=== PATIENT | male | born 1945 | race Caucasian/White ===

== ENCOUNTER 2016-08-15 15:29 | Observation (INO) | payer BC, OTHER ==
[2016-08-15] MEDS ORDERED: NORMAL SALINE 10 ML SYRINGE FLUSH IVP PRN ×2 (15:47→17:01)
[2016-08-15] MEDS ORDERED: ASPIRIN 81 MG (BABY) CHEWABLE TABLET PO ONE (15:47)
[2016-08-15] MEDS ORDERED: Sodium Chloride 0.9% 1,000 ML PRIMARY IV ONE (15:47)
--- NOTE | 2016-08-15 15:50 | EKG ---
[address] [address] Measurements Intervals [place] Rate: 57 P: 66 NE: 170 QRS: 33 QRSD: 88 T: 64 QT: 427 QTc: 422 Interpretive Statements SINUS BRADYCARDIA Compared to ECG 02/23/2016 16:58:28 Sinus rhythm no longer present Electronically Signed On 08-16-16 09:27:28 MST by Donell Cardenas [email or web address]
[2016-08-15 15:54] LABS: BASOPHILS # (AUTO) 0.01 10*3/UL; BASOPHILS % (AUTO) 0.1 % (0-1); HEMATOCRIT 47.8 % (42.0-52.0); IMM GRAN % (AUTO) 0.3 % (0-5); IMM GRAN# (AUTO) 0.03 10*3/UL; LYMPHOCYTES # (AUTO) 2.54 10*3/uL; LYMPHOCYTES % (AUTO) 23.5 % (10-50); MEAN CORPUSCULAR HGB CONC 33.5 g/dL (33-37); MEAN PLATELET VOLUME 10.9 FL (7.4-12.2); MONOCYTES # (AUTO) 1.01 10*3/UL (0.3-0.8); MONOCYTES % (AUTO) 9.4 % (5-15); NEUTROPHILS # (AUTO) 6.89 10*3/UL; NEUTROPHILS % (AUTO) 63.7 % (50-80); RDW COEFFICIENT OF VARIATION 12.9 % (11.5-14.5); RED BLOOD COUNT 5.34 10^6/uL (4.70-6.10)
[2016-08-15 15:57] LABS: PLATELET MORPHOLOGY COMMENT NORMAL MORPHOLOGY (NORM)
[2016-08-15 16:09] LABS: BILIRUBIN,TOTAL 0.4 mg/dL (0.3-1.2); BUN/CREATININE RATIO 16.92 (6-20); CALCIUM 9.7 mg/dL (8.7-10.7); CREATININE 1.3 mg/dL (0.70-1.50); POTASSIUM 3.9 meq/L (3.8-5.2); TOTAL PROTEIN 7.4 g/dL (6.1-8.0)
--- NOTE | 2016-08-15 16:15 | DI ---
AP CHEST X-RAY, 08/15/2016 3:47 PM : Clinical History: Chest pain. Previous Exam: 02/20/2016. There is no acute soft tissue or bony abnormality. Heart size is normal. Lungs are clear. Mediastinal structures are normal. There are no pulmonary nodules. The film was obtained in a lordotic projectio n. Reading: Normal chest x-ray. There has been no change.
[2016-08-15 16:21] LABS: CREATINE KINASE MB 0.84 NG/DL (0.00-5.00)
[2016-08-15 16:27] LABS: TROPONIN I < 0.012 ng/mL (< 0.040)
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
[2016-08-15] MEDS ORDERED: ALBUTEROL SULFATE INH SCH (17:01)
[2016-08-15] MEDS ORDERED: LIDOCAINE W/ SODIUM BICARB 0.5 ML SYR SUBD PRN (17:01)
[2016-08-15] MEDS ORDERED: CALCIUM CARBONATE 500 MG (TUMS) CHEWABLE TABLET PO PRN (17:01)
[2016-08-15] MEDS ORDERED: IPRATROPIUM INH SCH (17:01)
[2016-08-15] MEDS ORDERED: ONDANSETRON 4 MG/2 ML VIAL IVP PRN (17:01)
[2016-08-15] MEDS ORDERED: MAG HYDROX/AL HYDROX/SIMETH 30 ML SUSP PO PRN (17:01)
[2016-08-15] MEDS ORDERED: LORazepam 2 MG/1 ML VIAL IVP PRN (17:41)
[2016-08-15] MEDS: HEPARIN 5000 UNIT/1 ML SUBCUT SCH (17:51)
[2016-08-15] MEDS: Sodium Chloride 0.9% 1,000 ML PRIMARY IV SCH (17:57)
--- NOTE | 2016-08-15 19:59 | DI ---
CT ANGIOGRAM OF THE CHEST, 08/15/2016 6:21 PM : Clinical History: Cough. Chest pain with inspiration. Previous Exam: 07/27/2014; 06/14/2015; 07/01/2015; and 02/20/2016. Scans are performed from the base of the neck to the lower lung bases following IV administration of 95 mL of Isovue 300. Proprietary automated bolus tracking software was used to verify the timing of t he injection. The base of the neck and thoracic inlet are normal. There are no abnormal axillary, supraclavicular, mediastinal, or hilar nodes. The heart is normal. The pulmonary arteries are normal. There is no pulm onary arterial hypertension. There is no evidence of pulmonary embolism or pulmonary infarction. Ther e is no acute infiltrate or effusion. Bullae are present in both upper lobes indicating the patient d oes have bullous emphysema. There are multiple noncalcified nodules in the right upper lobe measuring up to 3-4 mm in diameter and one noncalcified nodule located in the left lingular segment measuring about 3 mm in diameter. All of these were present on the CT scans of the chest from 07/27/2014, and th e stability of these lesions over the 24 month duration indicates they are benign granulomas. Both ad renal glands and the spleen as well as the visualized portions of the liver and pancreas are normal. READIN. Normal CTA of the chest. There are no pulmonary emboli or pulmonary infarcts. 2. Bullous emphysema. 3. There are noncalcified nodules in the right upper lobe and the lingular segment in these have rem ained stable over a duration of 2 years indicating they represent benign granulomas and no further wo rkup of these nodules is required.
[2016-08-16] MEDS: HEPARIN 5000 UNIT/1 ML SUBCUT SCH ×3 (01:16→17:05)
[2016-08-16] MEDS: Sodium Chloride 0.9% 1,000 ML PRIMARY IV SCH ×3 (01:17→20:16)
[2016-08-16 06:17] LABS: BASOPHILS # (AUTO) 0.02 10*3/UL; BASOPHILS % (AUTO) 0.2 % (0-1); EOSINOPHILS % (AUTO) 3.6 % (0-8); HEMATOCRIT 44.5 % (42.0-52.0); HEMOGLOBIN 14.7 g/dL (14.0-18.0); IMM GRAN % (AUTO) 0.1 % (0-5); IMM GRAN# (AUTO) 0.01 10*3/UL; LYMPHOCYTES # (AUTO) 2.35 10*3/uL; LYMPHOCYTES % (AUTO) 26.1 % (10-50); MEAN CORPUSCULAR HEMOGLOBIN 29.9 PG (27-31); MEAN PLATELET VOLUME 10.8 FL (7.4-12.2); MONOCYTES # (AUTO) 0.83 10*3/UL (0.3-0.8); MONOCYTES % (AUTO) 9.2 % (5-15); NEUTROPHILS # (AUTO) 5.47 10*3/UL; NEUTROPHILS % (AUTO) 60.8 % (50-80); PLATELET MORPHOLOGY COMMENT NORMAL MORPHOLOGY (NORM); RDW COEFFICIENT OF VARIATION 12.8 % (11.5-14.5); RED BLOOD COUNT 4.92 10^6/uL (4.70-6.10)
[2016-08-16 06:31] LABS: ASPARTATE AMINO TRANSFERASE 27 IU/L (21-57); BILIRUBIN,TOTAL 0.4 mg/dL (0.3-1.2); BLOOD UREA NITROGEN 19 mg/dL (7-22); BUN/CREATININE RATIO 15.83 (6-20); CHLORIDE 110 meq/L (98-112); CREATININE 1.2 mg/dL (0.70-1.50); EST GLOMERULAR FILTRATION > 60 (>60 ml/min/1.73m(2)); GLUCOSE 87 mg/dL (78-110); MAGNESIUM 1.9 mg/dL (1.6-2.4); POTASSIUM 4.5 meq/L (3.8-5.2); SODIUM 139 meq/L (135-145); TOTAL PROTEIN 6.4 g/dL (6.1-8.0)
[2016-08-16] MEDS: CITALOPRAM 20 MG TABLET PO SCH (08:41)
[2016-08-16] MEDS: LOSARTAN 50 MG TABLET PO SCH (08:41)
--- NOTE | 2016-08-16 10:37 | PDOC(PROG) ---
Interval History: Doing great no complaints no nausea no vomiting no chest pain Objective : Data - Labs CBC and BMP: 08/16/16 06:07 08/16/16 06:07 Labs - Last 24 Hours: Laboratory Results 08/15/16 08/15/16 08/15/16 Range/Units 17:01 17:30 23:06 WBC (4.8-10.8) 10^3/uL RBC (4.70-6.10) 10^6/uL Hgb (14.0-18.0) g/dL Hct (42.0-52.0) % MCV (80-90) FL MCH (27-31) PG MCHC (33-37) g/dL RDW Std Deviation (39-50) fL RDW Coeff of Nelda (11.5-14.5) % Plt Count (140-350) 10*3/uL MPV (7.4-12.2) FL Immature Gran % (Auto) (0-5) % Neut % (Auto) (50-80) % Lymph % (Auto) (10-50) % [place] % (Auto) (5-15) % Eos % (Auto) (0-8) % Baso % (Auto) (0-1) % Immature Gran # (Auto) 10*3/UL Neut # (Auto) 10*3/UL Lymph # (Auto) 10*3/uL [place] # (Auto) (0.3-0.8) 10*3/UL Eos # (Auto) 10*3/UL Baso # (Auto) 10*3/UL WBC Morphology Comment (NORM) Plt Morphology Comment (NORM) RBC Morph Comment (NORM) D-Dimer (0.00-0.59) mg/L Sodium (135-145) meq/L Potassium (3.8-5.2) meq/L Chloride (98-112) meq/L Carbon Dioxide (23-33) meq/L Anion Gap (5-20) BUN (7-22) mg/dL Creatinine (0.70-1.50) mg/dL Estimated GFR (>60 ml/min/1.73m(2)) BUN/Creatinine Ratio (6-20) Glucose (78-110) mg/dL Calculated Osmolality (267-292) mOsm/kg Calcium (8.7-10.7) mg/dL Magnesium (1.6-2.4) mg/dL Total Bilirubin (0.3-1.2) mg/dL AST (21-57) IU/L ALT (21-72) IU/L Alkaline Phosphatase (38-126) IU/L Troponin I < 0.012 < 0.012 (< 0.040) ng/mL NT-Pro-B Natriuret Pep 118 (0-125) PG/ML Total Protein (6.1-8.0) g/dL Albumin (3.5-4.8) g/dL Globulin (2.50-4.10) g/dL Albumin/Globulin Ratio (1.3-2.0) mg/g 08/16/16 Range/Units 06:07 WBC 9.00 (4.8-10.8) 10^3/uL RBC 4.92 (4.70-6.10) 10^6/uL Hgb 14.7 (14.0-18.0) g/dL Hct 44.5 (42.0-52.0) % MCV 90.4 H (80-90) FL MCH 29.9 (27-31) PG MCHC 33.0 (33-37) g/dL RDW Std Deviation 41.6 (39-50) fL RDW Coeff of Nelda 12.8 (11.5-14.5) % Plt Count 201 (140-350) 10*3/uL MPV 10.8 (7.4-12.2) FL Immature Gran % (Auto) 0.1 (0-5) % Neut % (Auto) 60.8 (50-80) % Lymph % (Auto) 26.1 (10-50) % [place] % (Auto) 9.2 (5-15) % Eos % (Auto) 3.6 (0-8) % Baso % (Auto) 0.2 (0-1) % Immature Gran # (Auto) 0.01 10*3/UL Neut # (Auto) 5.47 10*3/UL Lymph # (Auto) 2.35 10*3/uL [place] # (Auto) 0.83 H (0.3-0.8) 10*3/UL Eos # (Auto) 0.32 10*3/UL Baso # (Auto) 0.02 10*3/UL WBC Morphology Comment Normal morphology (NORM) Plt Morphology Comment Normal morphology (NORM) RBC Morph Comment Normal morphology (NORM) D-Dimer 0.33 (0.00-0.59) mg/L Sodium 139 (135-145) meq/L Potassium 4.5 (3.8-5.2) meq/L Chloride 110 (98-112) meq/L Carbon Dioxide 23 (23-33) meq/L Anion Gap 6 (5-20) BUN 19 (7-22) mg/dL Creatinine 1.2 (0.70-1.50) mg/dL Estimated GFR > 60 (>60 ml/min/1.73m(2)) BUN/Creatinine Ratio 15.83 (6-20) Glucose 87 (78-110) mg/dL Calculated Osmolality 288.0 (267-292) mOsm/kg Calcium 9.0 (8.7-10.7) mg/dL Magnesium 1.9 (1.6-2.4) mg/dL Total Bilirubin 0.4 (0.3-1.2) mg/dL AST 27 (21-57) IU/L ALT 33 (21-72) IU/L Alkaline Phosphatase 63 (38-126) IU/L Troponin I (< 0.040) ng/mL NT-Pro-B Natriuret Pep (0-125) PG/ML Total Protein 6.4 (6.1-8.0) g/dL Albumin 3.4 L (3.5-4.8) g/dL Globulin 3.0 (2.50-4.10) g/dL Albumin/Globulin Ratio 1.10 L (1.3-2.0) mg/g Objective : Exam - General General Appearance: Mild Distress - Head Head Exam: Normal Inspection - Respiratory Respiratory Exam: Clear to Auscultation - Bilaterally, Breathing Non Labored, Normal To Percussion - Cardiovascular Cardiovascular Exam: RRR, No Murmur, No Clicks, No Gallops - GI/Abdominal GI/Abdominal Exam: Normal Bowel Sounds, Non Tender, Non Distended, Soft - Extremities Extremities Exam: No Clubbing Present, No Edema Present, No Cyanosis Present - Neurological Neurological Exam: Alert, Oriented x 3, CN II-XII Intact, No Facial Droop Assessment and Plan - Patient Problems (1) Chest wall pain Current Visit: No Status: Acute Comment: Negative troponins we'll do stress test today T chest no PE no pneumonia (2) Depression Current Visit: No Status: Acute Comment: Stable (3) Hypertension Current Visit: No Status: Chronic Comment: Stable (4) Cough Current Visit: Yes Status: Acute Comment: CT revealed no pneumonia no PE
[2016-08-17] MEDS: HEPARIN 5000 UNIT/1 ML SUBCUT SCH ×2 (00:34→08:48)
[2016-08-17] MEDS: Sodium Chloride 0.9% 1,000 ML PRIMARY IV SCH ×2 (04:16→08:50)
[2016-08-17] MEDS: LOSARTAN 50 MG TABLET PO SCH (08:48)
[2016-08-17] MEDS: CITALOPRAM 20 MG TABLET PO SCH (08:48)
[2016-08-17] MEDS ORDERED: methylPREDNISolone 125 MG/2 ML VIAL IVP ONE (10:57)
--- NOTE | 2016-08-17 10:57 | DCSUMMARY ---
Hospitalization Summary Hospital Course: Final Discharge Diagnosis: Current Visit Problems Problem Status Priority Diagnosed Code Chest pain Acute R07.9 Cough Acute R05 Diagnostic Data, Laboratory Data, and Procedures of Signifigance: Laboratory Results 08/15/16 08/15/16 08/15/16 Range/Units 15:38 17:01 17:30 WBC 10.80 (4.8-10.8) 10^3/uL RBC 5.34 (4.70-6.10) 10^6/uL Hgb 16.0 (14.0-18.0) g/dL Hct 47.8 (42.0-52.0) % MCV 89.5 (80-90) FL MCH 30.0 (27-31) PG MCHC 33.5 (33-37) g/dL RDW Std Deviation 41.9 (39-50) fL RDW Coeff of Nelda 12.9 (11.5-14.5) % Plt Count 247 (140-350) 10*3/uL MPV 10.9 (7.4-12.2) FL Immature Gran % (Auto) 0.3 (0-5) % Neut % (Auto) 63.7 (50-80) % Lymph % (Auto) 23.5 (10-50) % Cedar % (Auto) 9.4 (5-15) % Eos % (Auto) 3.0 (0-8) % Baso % (Auto) 0.1 (0-1) % Immature Gran # (Auto) 0.03 10*3/UL Neut # (Auto) 6.89 10*3/UL Lymph # (Auto) 2.54 10*3/uL Cedar # (Auto) 1.01 H (0.3-0.8) 10*3/UL Eos # (Auto) 0.32 10*3/UL Baso # (Auto) 0.01 10*3/UL WBC Morphology Comment Normal morphology (NORM) Plt Morphology Comment Normal morphology (NORM) RBC Morph Comment Normal morphology (NORM) D-Dimer 0.40 (0.00-0.59) mg/L Sodium 142 (135-145) meq/L Potassium 3.9 (3.8-5.2) meq/L Chloride 107 (98-112) meq/L Carbon Dioxide 23 (23-33) meq/L Anion Gap 12 (5-20) BUN 22 (7-22) mg/dL Creatinine 1.3 (0.70-1.50) mg/dL Estimated GFR 55 (>60 ml/min/1.73m(2)) BUN/Creatinine Ratio 16.92 (6-20) Glucose 76 L (78-110) mg/dL Calculated Osmolality 295.0 H (267-292) mOsm/kg Calcium 9.7 (8.7-10.7) mg/dL Magnesium (1.6-2.4) mg/dL Total Bilirubin 0.4 (0.3-1.2) mg/dL AST 34 (21-57) IU/L ALT 34 (21-72) IU/L Alkaline Phosphatase 94 (38-126) IU/L CK-MB (CK-2) 0.84 (0.00-5.00) NG/DL Troponin I < 0.012 < 0.012 (< 0.040) ng/mL NT-Pro-B Natriuret Pep 118 (0-125) PG/ML Total Protein 7.4 (6.1-8.0) g/dL Albumin 4.0 (3.5-4.8) g/dL Globulin 3.4 (2.50-4.10) g/dL Albumin/Globulin Ratio 1.10 L (1.3-2.0) mg/g 08/15/16 08/16/16 Range/Units 23:06 06:07 WBC 9.00 (4.8-10.8) 10^3/uL RBC 4.92 (4.70-6.10) 10^6/uL Hgb 14.7 (14.0-18.0) g/dL Hct 44.5 (42.0-52.0) % MCV 90.4 H (80-90) FL MCH 29.9 (27-31) PG MCHC 33.0 (33-37) g/dL RDW Std Deviation 41.6 (39-50) fL RDW Coeff of Nelda 12.8 (11.5-14.5) % Plt Count 201 (140-350) 10*3/uL MPV 10.8 (7.4-12.2) FL Immature Gran % (Auto) 0.1 (0-5) % Neut % (Auto) 60.8 (50-80) % Lymph % (Auto) 26.1 (10-50) % Cedar % (Auto) 9.2 (5-15) % Eos % (Auto) 3.6 (0-8) % Baso % (Auto) 0.2 (0-1) % Immature Gran # (Auto) 0.01 10*3/UL Neut # (Auto) 5.47 10*3/UL Lymph # (Auto) 2.35 10*3/uL Cedar # (Auto) 0.83 H (0.3-0.8) 10*3/UL Eos # (Auto) 0.32 10*3/UL Baso # (Auto) 0.02 10*3/UL WBC Morphology Comment Normal morphology (NORM) Plt Morphology Comment Normal morphology (NORM) RBC Morph Comment Normal morphology (NORM) D-Dimer 0.33 (0.00-0.59) mg/L Sodium 139 (135-145) meq/L Potassium 4.5 (3.8-5.2) meq/L Chloride 110 (98-112) meq/L Carbon Dioxide 23 (23-33) meq/L Anion Gap 6 (5-20) BUN 19 (7-22) mg/dL Creatinine 1.2 (0.70-1.50) mg/dL Estimated GFR > 60 (>60 ml/min/1.73m(2)) BUN/Creatinine Ratio 15.83 (6-20) Glucose 87 (78-110) mg/dL Calculated Osmolality 288.0 (267-292) mOsm/kg Calcium 9.0 (8.7-10.7) mg/dL Magnesium 1.9 (1.6-2.4) mg/dL Total Bilirubin 0.4 (0.3-1.2) mg/dL AST 27 (21-57) IU/L ALT 33 (21-72) IU/L Alkaline Phosphatase 63 (38-126) IU/L CK-MB (CK-2) (0.00-5.00) NG/DL Troponin I < 0.012 (< 0.040) ng/mL NT-Pro-B Natriuret Pep (0-125) PG/ML Total Protein 6.4 (6.1-8.0) g/dL Albumin 3.4 L (3.5-4.8) g/dL Globulin 3.0 (2.50-4.10) g/dL Albumin/Globulin Ratio 1.10 L (1.3-2.0) mg/g CT scan of his chest revealed no PE no pneumonia History and Physical pertinent to Admission: Course of Hospitalization: Is a very nice gentleman with past medical history significant for hypertension and depression comes in with intermittent chest pain after thorough examination this pain was more reproducible when I pushed on his up for left chest and shoulder area. We are awaiting results of stress test which I presume will be negative if troponins were negative if this is the case patient will be discharged home in stable and improved condition before he is discharged I will get an x-ray of his left shoulder since I believe this is where the pain is.elvis scan negative for ischemia On the date of discharge, the patient was examined: Gen.: No acute distress, alert, nontoxic Heart: Regular rate and rhythm, no murmurs, clicks, gallops, or rubs Lungs: Clear to auscultation bilaterally, breathing is nonlabored Abdomen/GI: Normal tones on auscultation, soft, nontender, nondistended Musculoskeletal/extremities: No clubbing, cyanosis, or edema Vitals reviewed and are listed below Assessment and Plan: 1. As per discharge assessments above 2. Disposition: Home 3. Condition on discharge, stable and improved. 4. Diet: regular diet 5. Activities: resume normal activities 6. Follow-Up: 1. PCP 2. 7. Medications at the Time of Discharge: Home Medications Medication Instructions Recorded Confirmed Type Citalopram Hydrobromide [Celexa] 1 tab ORAL QAM #90 tab 05/10/16 08/15/16 Clinic Losartan Potassium 1 tab PO DAILY #90 tab 05/10/16 08/15/16 Clinic 8. Time, care, counseling and coordination of care for this discharge is greater than 30 minutes. Exam - Vitals Vital Signs: Vital Signs Temperature 97.5 F Temperature Source Temporal Artery Scan Pulse Rate [Pulse Oximeter] 53 Pulse Rate [Telemetry] 58 Pulse Rate 52 Respiratory Rate 20 Blood Pressure [Right Arm] 133/79 Blood Pressure 139/90 Pulse Ox 93 Oxygen Flow Rate 2 Oxygen Delivery Method Nasal Cannula Height 6 ft 2 in Weight 135.896 kg Patient Problems - Patient Problem List (1) Chest wall pain Current Visit: No Status: Acute (2) Depression Current Visit: No Status: Acute (3) Hypertension Current Visit: No Status: Chronic (4) Cough Current Visit: Yes Status: Acute
--- NOTE | 2016-08-17 13:10 | DI ---
LEFT SHOULDER, 08/17/2016 11:35 AM: Clinical History: Left shoulder pain. Previous Exam: 05/19/2014. 3 views are submitted. The patient is status post total left reverse shoulder replacement. The prosth etic device articulates normally. Since the last exam, a large bony spur has developed along the infe rior margin of the scapula. There is no evidence of loosening of the prosthetic device. The visualize d portions of the left lung and apex are normal. Readin. Status post left total reverse shoulder replacement. The prosthetic device articulates normally a nd there is no loosening of the prosthesis noted. 2. A bony spur has developed along the inferior margin of the scapula.
[2016-08-17 16:52] VITALS: RESP 22; TEMP 97.7
--- NOTE | 2016-08-17 17:11 | STRESSTEST ---
[facility] Interpretive Statements this is a very nice [place] who comes in with atypical chest pain and neg troponins ., no acute changes will await imaging Electronically Signed On 08-20-16 08:50:37 MDT by Giovanni Bush MD [id number]
--- NOTE | 2016-08-17 22:54 | DI ---
2 DAY LEXISCAN STRESS & REST MYOCARDIAL PERFUSION SCANS, 08/16/2016-08/17/2016.: Clinical History: Chest pain. Previous Exam: 07/23/2013. Monitoring Physician: Dr. Baldev Castro. Dose: Stress dose: 35 mCi on 08/17/2016. Rest dose: 33 mCi on 08/16/2016. Quantitative Analysis: [employer] program with low dose limited CT chest scan attenuation correctio n. Exam Quality: Excellent. Rejected Beats: Stress = 0%; Rest = 1%. HR: Stress = 67-77 b/m; Rest = 52-5 6 b/m. Left ventricular chamber sizes are normal at stress and rest. Transient ischemic dilatation ratio is 0.85 (normal Stan TID <= 1.22; normal Lexiscan TID <= 1.33). Stress LVEF: 86%; rest LVEF: 77%. Both the non-attenuated and the attenuated corrected scans show no perfusion abnormality either at stress or rest. Wall motion and myocardial thickening are also normal at stress and rest. Limited CT scans o f the heart show no coronary artery calcifications. There are no lung nodules or enlarged nodes. Readin. Normal stress and rest left ventricular chamber size. Transient ischemic dilatation ratio is norm al at 0.85. 2. Normal stress and rest LVEF values of 86% and 77%, respectively. 3. Normal stress and rest myocardial perfusion, wall motion, and thickening. 4. The low dose stress and rest CT scans of the chest through the region of the heart show no coron bernardo calcifications. There are no pulmonary nodules or masses. There is no mediastinal or hilar adenop athy.
== END 2016-08-17 16:41 | disposition home or self-care (01) ==
LOC: ER 15:29 → MED/SURG 16:36
PROVIDERS: ADMIT Internal Medicine; ATTEND Internal Medicine
DX: R07.9 Chest pain, unspecified (principal); R05 Cough; F32.9 Major depressive disorder, single episode, unspecified; I10 Essential (primary) hypertension; M25.512 Pain in left shoulder
CPT/HCPCS: 36415 ×2; 71010; 71275; 73030; 78452; 80053 ×2; 82553; 83735; 83880; 84484; 85025 ×2; 85379 ×2; 93005; 93010; 93016; 93017; 93018; 94761 ×3; 96374; 99284 ×2; A9500; J2785; J2930; J1644; J7030

== ENCOUNTER → 2016-10-08 | Outpatient (CLI) | payer OTHER, MEDICARE ==
--- NOTE | 2016-10-08 14:38 | DI ---
XR SHOULDER MIN 2VW,10/08/2016 9:06 AM: Clinical History: Right shoulder pain. Previous Exam: None at this facility. Findings: 4 views of the right shoulder are obtained, and demonstrate degenerative changes of the right glenohu meral joint. The adjacent right lung and chest wall is unremarkable. Impression: Degenerative changes of the right glenohumeral joint otherwise unremarkable.
== END ==
LOC: ORTHO 09:18
PROVIDERS: ATTEND Orthopaedic Surgery
DX: M25.511 Pain in right shoulder (principal); M19.011 Primary osteoarthritis, right shoulder
CPT/HCPCS: 73030

== ENCOUNTER → 2016-11-01 | Outpatient (CLI) | payer OTHER, MEDICARE ==
--- NOTE | 2016-11-01 17:32 | DI ---
MRI RIGHT SHOULDER SCAN, 11/01/2016 1:52 PM: Clinical History: Primary osteoarthritis of the right shoulder. Previous Exam: None at this facility. Technique: Axial, coronal, and sagittal fat saturated PD; axial gradient FE; coronal fat saturatedT2 weighted; sagittal T2 weighted. There is no soft tissue edema. A small joint effusion is present. The patient is status post previous rotator cuff tear and anchors are present in the humeral head. Bony spurring has developed along the inferomedial margin of the humeral head. There is a large fluid collection in the subacromion bursa. The AC joint is normal and there is a type I acromion. There is a calcification located in the tendon of the supraspinatus muscle anteriorly and this portio n has tendinosis. There is a full-thickness tear of the conjoined tendon with retraction of the porti on of the tendon to the level of the glenohumeral joint. The tear measures 25 mm in transverse dimens ion by 15 mm in AP dimension. The infraspinatus tendon has been repaired. There is an articular surfa ce partial thickness tear of this tendon that measures 8 mm in AP dimension by 10 mm in transverse di mension. The subscapularis and teres minor tendons are intact. The tendon of the long head of the bic eps muscle is not visualized in the rotator interval but there is also no anchor in the typical locat ion for a biceps tenodesis. The patient may have had a complete rupture at the biceps anchor with ret raction of the tendon into the region of the proximal humerus. The glenoid labrum is otherwise unrema rkable. The cartilage of the glenoid fossa is thin but no discrete defects are seen. The humeral head cartilage is intact. There is atrophy of the supraspinatus and infraspinatus muscles with less than 50% fatty infiltration, a Goutallier grade 2 level of fatty replacement. Readin. Status post infraspinatus tendon repair with an articular surface partial tear of that tendon aurora suring 8 x 10 mm in AP and transverse dimensions. There is a full-thickness tear of the conjoined ten don measuring 25 x 15 mm in transverse and AP dimensions and with retraction of the proximal portion of this tendon almost to the level of the glenohumeral joint. The tendon of the long head of the geovany ps muscle is not visualized in the rotator interval in this patient probably has had complete rupture of the tendon at the biceps labral anchor with retraction into the proximal humerus. There is no eric dence of a tenodesis of the biceps tendon. Calcific tendinosis is present in the supraspinatus tendon . There is atrophy of the supraspinatus and infraspinatus muscles with a Goutallier grade 2 fatty inf iltration. 2. The AC joint is normal and there is a type I acromion. The teres minor tendon and the subscapular is tendon are intact. There is thinning of the glenoid fossa cartilage but no defect is noted.
== END ==
LOC: MRI 13:37
PROVIDERS: ATTEND Orthopaedic Surgery
DX: M19.011 Primary osteoarthritis, right shoulder (principal)
CPT/HCPCS: 73221

== ENCOUNTER → 2016-11-01 | Outpatient (CLI) | payer OTHER, MEDICARE ==
--- NOTE | 2016-11-01 14:08 | EKG ---
[address] [address] Measurements Intervals [place] Rate: 94 P: 76 VA: 165 QRS: 48 QRSD: 88 T: 76 QT: 341 QTc: 392 Interpretive Statements SINUS RHYTHM WARNING: DATA QUALITY MAY AFFECT INTERPRETATION Compared to ECG 08/15/2016 15:36:44 Sinus bradycardia no longer present Electronically Signed On 11-02-16 08:01:23 MDT by Giovanni Bush MD [id number]
[2016-11-01 14:11] LABS: BASOPHILS # (AUTO) 0.06 10*3/UL; BASOPHILS % (AUTO) 0.5 % (0-1); EOSINOPHILS % (AUTO) 2.7 % (0-8); HEMATOCRIT 48.2 % (42.0-52.0); LYMPHOCYTES # (AUTO) 2.32 10*3/uL; MEAN CORPUSCULAR HEMOGLOBIN 29.5 PG (27-31); MEAN CORPUSCULAR HGB CONC 33.2 g/dL (33-37); MEAN CORPUSCULAR VOLUME 88.9 FL (80-90); MEAN PLATELET VOLUME 11.1 FL (7.4-12.2); MONOCYTES # (AUTO) 0.86 10*3/UL (0.3-0.8); MONOCYTES % (AUTO) 7.6 % (5-15); NEUTROPHILS # (AUTO) 7.75 10*3/UL; NEUTROPHILS % (AUTO) 68.4 % (50-80); RED BLOOD COUNT 5.42 10^6/uL (4.70-6.10)
[2016-11-01 14:16] LABS: BILIRUBIN,URINE NEGATIVE (NEG); CLARITY,URINE CLEAR (CLEAR); COLOR,URINE YELLOW; GLUCOSE, URINE (UA) NEGATIVE (NEG); NITRATE,URINE NEGATIVE (NEG); OCCULT BLOOD,URINE NEGATIVE (NEG); PH,URINE 5.5 (5.0-8.5); PROTEIN,URINE 30 mg/dl (NEG); UROBILINOGEN,URINE 0.2 mg/dL (0.2)
[2016-11-01 14:38] LABS: BUN/CREATININE RATIO 12.85 (6-20); CALCIUM 9.4 mg/dL (8.7-10.7)
[2016-11-01 16:30] LABS: PLATELET MORPHOLOGY COMMENT NORMAL MORPHOLOGY (NORM); RBC MORPHOLOGY COMMENT NORMAL MORPHOLOGY (NORM); WBC MORPHOLOGY COMMENT NORMAL MORPHOLOGY (NORM)
[2016-11-02 08:26] LABS: RBC,URINE 0 /hpf; SQUAMOUS EPITHELIAL CELL,UR RARE; URINE SAMPLE TYPE CLEAN CATCH URINE; WBC,URINE 0-3
== END ==
LOC: LAB 13:51
PROVIDERS: ATTEND Orthopaedic Surgery Sports Medicine
DX: M25.512 Pain in left shoulder (principal); I10 Essential (primary) hypertension; G47.33 Obstructive sleep apnea (adult) (pediatric); Z96.611 Presence of right artificial shoulder joint
CPT/HCPCS: 36415; 80053; 81001; 85025; 86850; 87641; 93005; 93010

== ENCOUNTER → 2016-11-06 | Outpatient (CLI) | payer OTHER, MEDICARE | LOC: MMPC 11:11 | PROVIDERS: ATTEND Internal Medicine | DX: J43.2 Centrilobular emphysema (principal); L57.0 Actinic keratosis; G47.33 Obstructive sleep apnea (adult) (pediatric); R09.02 Hypoxemia; M19.019 Primary osteoarthritis, unspecified shoulder; Z87.01 Personal history of pneumonia (recurrent) | CPT/HCPCS: 17000 ×2; 17003 ×2; 99214; G0463 ==

== ENCOUNTER 2016-11-08 17:23 | Inpatient (IN) | payer OTHER, MEDICARE ==
[2016-11-08] MEDS ORDERED: Sodium Chloride 0.9% 1,000 ML PRIMARY IV ONE (17:31)
[2016-11-08] MEDS ORDERED: ASPIRIN 81 MG (BABY) CHEWABLE TABLET PO ONE (17:31)
[2016-11-08] MEDS ORDERED: NORMAL SALINE 10 ML SYRINGE FLUSH IVP PRN (17:31)
--- NOTE | 2016-11-08 17:34 | EKG ---
[address] [address] Measurements Intervals [place] Rate: 96 P: 74 TN: 159 QRS: 35 QRSD: 88 T: 78 QT: 327 QTc: 380 Interpretive Statements SINUS RHYTHM Compared to ECG 11/01/2016 13:58:31 No significant changes Electronically Signed On 11-12-16 10:03:36 MDT by Giovanni Bush MD [id number]
[2016-11-08 17:47] LABS: BASOPHILS # (AUTO) 0.06 10*3/UL; BASOPHILS % (AUTO) 0.4 % (0-1); EOSINOPHILS # (AUTO) 0.46 10*3/UL; EOSINOPHILS % (AUTO) 3.3 % (0-8); HEMATOCRIT 48.6 % (42.0-52.0); HEMOGLOBIN 16.1 g/dL (14.0-18.0); LYMPHOCYTES # (AUTO) 2.37 10*3/uL; MEAN CORPUSCULAR HEMOGLOBIN 29.7 PG (27-31); MEAN CORPUSCULAR HGB CONC 33.1 g/dL (33-37); MEAN CORPUSCULAR VOLUME 89.5 FL (80-90); MEAN PLATELET VOLUME 10.5 FL (7.4-12.2); MONOCYTES # (AUTO) 1.33 10*3/UL (0.3-0.8); MONOCYTES % (AUTO) 9.6 % (5-15); NEUTROPHILS # (AUTO) 9.65 10*3/UL; NEUTROPHILS % (AUTO) 69.4 % (50-80); RED BLOOD COUNT 5.43 10^6/uL (4.70-6.10)
[2016-11-08 17:49] LABS: PLATELET MORPHOLOGY COMMENT NORMAL MORPHOLOGY (NORM); RBC MORPHOLOGY COMMENT NORMAL MORPHOLOGY (NORM); WBC MORPHOLOGY COMMENT NORMAL MORPHOLOGY (NORM)
[2016-11-08 17:57] LABS: C-REACTIVE PROTEIN 3.2 mg/dL (0.0-0.9); CALCIUM 9.5 mg/dL (8.7-10.7); SERUM ALBUMIN 4.2 g/dL (3.5-4.8)
--- NOTE | 2016-11-08 18:01 | DI ---
AP CHEST X-RAY, 11/08/2016 5:31 PM : Clinical History: Chest pain. Previous Exam: 08/15/2016. There is no acute soft tissue or bony abnormality. Heart size is normal. Lungs are clear. Mediastinal structures are normal. There are no pulmonary nodules. Reading: Normal chest x-ray. There has been no interval change.
[2016-11-08 18:07] LABS: TROPONIN I < 0.012 ng/mL (< 0.040)
[2016-11-08] MEDS ORDERED: cefTRIAXone Inj 2 GM in Sodium Chloride 0.9% 100 ML IV ONE (18:12)
--- NOTE | 2016-11-08 19:31 | DI ---
CLINICAL HISTORY: Pleuritic chest pain and cough. PREVIOUS EXAM: None available. FINDINGS/TECHNIQUE: Multiple helically acquired CT images are obtained through the chest following a CT angiogram protocol, and demonstrate some mild airspace disease within the right upper lobe. There is some mild diffuse COPD as well. There is no filling defect or truncation of the pulmonary arteries. Degenerative changes of the spine are seen. IMPRESSION: 1. No evidence of pulmonary embolism. 2. Early airspace disease within the right upper lobe may represent early right upper lobe pneumonia.
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
[2016-11-08] MEDS ORDERED: LIDOCAINE W/ SODIUM BICARB 0.5 ML SYR SUBD PRN (21:29)
[2016-11-09] MEDS: IBUPROFEN 800 MG TABLET PO PRN (02:25)
[2016-11-09 04:58] LABS: BASOPHILS # (AUTO) 0.02 10*3/UL; BASOPHILS % (AUTO) 0.2 % (0-1); EOSINOPHILS % (AUTO) 5.2 % (0-8); HEMATOCRIT 44.9 % (42.0-52.0); HEMOGLOBIN 14.9 g/dL (14.0-18.0); LYMPHOCYTES # (AUTO) 1.93 10*3/uL; MEAN CORPUSCULAR HGB CONC 33.2 g/dL (33-37); MEAN CORPUSCULAR VOLUME 90.5 FL (80-90); MEAN PLATELET VOLUME 11.1 FL (7.4-12.2); MONOCYTES # (AUTO) 1.04 10*3/UL (0.3-0.8); MONOCYTES % (AUTO) 10.8 % (5-15); NEUTROPHILS % (AUTO) 63.6 % (50-80); RED BLOOD COUNT 4.96 10^6/uL (4.70-6.10)
[2016-11-09 04:59] LABS: PLATELET MORPHOLOGY COMMENT NORMAL MORPHOLOGY (NORM); RBC MORPHOLOGY COMMENT NORMAL MORPHOLOGY (NORM); WBC MORPHOLOGY COMMENT NORMAL MORPHOLOGY (NORM)
[2016-11-09] MEDS: CITALOPRAM 20 MG TABLET PO SCH (08:14)
[2016-11-09] MEDS: LOSARTAN 50 MG TABLET PO SCH (08:14)
[2016-11-09] MEDS ORDERED: LOSARTAN 50 MG TABLET PO SCH (09:00)
[2016-11-09] MEDS ORDERED: FUROSEMIDE 20 MG TABLET PO ONE (10:08)
--- NOTE | 2016-11-09 10:09 | PDOC(PROG) ---
Date and Time of Service: 11/09/2016 11:18 AM Interval History: Subjective Still feeling somewhat short of breath, still having the cough. Sometimes he had pain with taking deep breath. Some mild swelling of the legs. Objective : Data - Labs CBC and BMP: 11/09/16 04:17 11/08/16 17:35 Labs - Last 24 Hours: Laboratory Results 11/09/16 Range/Units 04:17 WBC 9.60 (4.8-10.8) 10^3/uL RBC 4.96 (4.70-6.10) 10^6/uL Hgb 14.9 (14.0-18.0) g/dL Hct 44.9 (42.0-52.0) % MCV 90.5 H (80-90) FL MCH 30.0 (27-31) PG MCHC 33.2 (33-37) g/dL RDW Std Deviation 44.3 (39-50) fL RDW Coeff of Nelda 13.6 (11.5-14.5) % Plt Count 198 (140-350) 10*3/uL MPV 11.1 (7.4-12.2) FL Immature Gran % (Auto) 0.1 (0-5) % Neut % (Auto) 63.6 (50-80) % Lymph % (Auto) 20.1 (10-50) % [place] % (Auto) 10.8 (5-15) % Eos % (Auto) 5.2 (0-8) % Baso % (Auto) 0.2 (0-1) % Immature Gran # (Auto) 0.01 10*3/UL Neut # (Auto) 6.10 10*3/UL Lymph # (Auto) 1.93 10*3/uL [place] # (Auto) 1.04 H (0.3-0.8) 10*3/UL Eos # (Auto) 0.50 10*3/UL Baso # (Auto) 0.02 10*3/UL WBC Morphology Comment Normal morphology (NORM) Plt Morphology Comment Normal morphology (NORM) RBC Morph Comment Normal morphology (NORM) Objective : Exam - General General Appearance: No Acute Distress, Cooperative, Obese - Head Head Exam: Normal Inspection, Atraumatic - Eye Eye Exam: Normal Appearance - ENT ENT Exam: Normal Exam - Neck Neck Exam: Normal Inspection - Respiratory Respiratory Exam: Clear to Auscultation - Bilaterally - Cardiovascular Cardiovascular Exam: RRR - GI/Abdominal GI/Abdominal Exam: Normal Bowel Sounds, Non Tender, Non Distended, Soft - Rectal Rectal Exam: Deferred - External Exam: Deferred - Extremities Extremities Exam: Pedal Edema - Back Back Exam: Normal Inspection - Neurological Neurological Exam: Alert, Oriented x 3, CN II-XII Intact, Speech Intact / Clear , Moves All Extremities Equally - Psychiatric Psychiatric Exam: Normal Affect - Integumentary Integumentary Exam: Normal Color Assessment and Plan - Patient Problems (1) Pneumonia Current Visit: Yes Status: Acute Comment: Continue current antibiotics. Will add bronchodilators as needed. Consider steroid if does not improve by tomorrow (2) Hypertension Current Visit: No Status: Chronic Comment: Same med. Add some Lasix as he has some edema in his legs (3) Depression Current Visit: No Status: Acute Comment: Same med
[2016-11-09] MEDS: LEVALBUTEROL HCL 0.63 MG/3 ML NEB PRN ×2 (13:00→19:13)
[2016-11-09] MEDS: cefTRIAXone Inj 1 GM in Sodium Chloride 0.9% 100 ML IV SCH (17:05)
[2016-11-09] MEDS: NORMAL SALINE 10 ML SYRINGE FLUSH IVP PRN (17:05)
[2016-11-10] MEDS: IBUPROFEN 800 MG TABLET PO PRN (00:04)
[2016-11-10] MEDS: LEVALBUTEROL HCL 0.63 MG/3 ML NEB PRN ×3 (06:46→18:45)
[2016-11-10] MEDS: CITALOPRAM 20 MG TABLET PO SCH (08:06)
[2016-11-10] MEDS: FUROSEMIDE 40 MG TABLET PO SCH (08:06)
[2016-11-10] MEDS: LOSARTAN 50 MG TABLET PO SCH (08:06)
--- NOTE | 2016-11-10 10:05 | PDOC(PROG) ---
Date and Time of Service: 11/10/2016 9:40 AM Interval History: Subjective Patient feels better today compared to yesterday. He had pain in the chest when he was coughing last night, it's worse with taking deep breath. Objective : Data - Labs CBC and BMP: 11/09/16 04:17 11/08/16 17:35 Objective : Exam - General General Appearance: No Acute Distress, Obese - Head Head Exam: Normal Inspection, Atraumatic - Eye Eye Exam: Normal Appearance - ENT ENT Exam: Normal Exam - Neck Neck Exam: Normal Inspection - Respiratory Respiratory Exam: Clear to Auscultation - Bilaterally - Cardiovascular Cardiovascular Exam: RRR - GI/Abdominal GI/Abdominal Exam: Normal Bowel Sounds, Non Tender, Non Distended, Soft - Rectal Rectal Exam: Deferred - External Exam: Deferred - Extremities Extremities Exam: Normal Inspection - Back Back Exam: Normal Inspection - Neurological Neurological Exam: Alert, Oriented x 3, CN II-XII Intact, Moves All Extremities Equally - Psychiatric Psychiatric Exam: Normal Affect - Integumentary Integumentary Exam: Normal Color Assessment and Plan - Patient Problems (1) Pneumonia Current Visit: Yes Status: Acute Comment: He is improving continue antibiotics. Continue breathing treatment as needed. Question home tomorrow or day after (2) Hypertension Current Visit: No Status: Chronic Comment: Same medications. The swelling in his leg seems to be improved will check his chemistry tomorrow. (3) Depression Current Visit: No Status: Acute Comment: Same med
[2016-11-10] MEDS: NORMAL SALINE 10 ML SYRINGE FLUSH IVP PRN (17:10)
[2016-11-10] MEDS: cefTRIAXone Inj 1 GM in Sodium Chloride 0.9% 100 ML IV SCH (18:43)
[2016-11-11] MEDS: LEVALBUTEROL HCL 0.63 MG/3 ML NEB PRN ×2 (00:51→06:52)
[2016-11-11 05:09] LABS: BASOPHILS # (AUTO) 0.03 10*3/UL; BASOPHILS % (AUTO) 0.3 % (0-1); EOSINOPHILS # (AUTO) 0.54 10*3/UL; HEMATOCRIT 46.7 % (42.0-52.0); HEMOGLOBIN 15.1 g/dL (14.0-18.0); MEAN CORPUSCULAR HEMOGLOBIN 29.5 PG (27-31); MEAN CORPUSCULAR HGB CONC 32.3 g/dL (33-37); MEAN CORPUSCULAR VOLUME 91.2 FL (80-90); MEAN PLATELET VOLUME 10.8 FL (7.4-12.2); MONOCYTES # (AUTO) 1.18 10*3/UL (0.3-0.8); MONOCYTES % (AUTO) 10.9 % (5-15); NEUTROPHILS # (AUTO) 6.96 10*3/UL; NEUTROPHILS % (AUTO) 64.1 % (50-80); RED BLOOD COUNT 5.12 10^6/uL (4.70-6.10)
[2016-11-11 05:10] LABS: PLATELET MORPHOLOGY COMMENT NORMAL MORPHOLOGY (NORM); RBC MORPHOLOGY COMMENT NORMAL MORPHOLOGY (NORM); WBC MORPHOLOGY COMMENT NORMAL MORPHOLOGY (NORM)
[2016-11-11 05:19] LABS: BUN/CREATININE RATIO 20.76 (6-20); CALCIUM 9.4 mg/dL (8.7-10.7)
[2016-11-11] MEDS: FUROSEMIDE 40 MG TABLET PO SCH (06:53)
[2016-11-11] MEDS: LOSARTAN 50 MG TABLET PO SCH (06:53)
[2016-11-11] MEDS: CITALOPRAM 20 MG TABLET PO SCH (08:14)
[2016-11-11 08:21] VITALS: RESP 20; TEMP 97.9
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
[2016-11-12] MEDS ORDERED: Amoxicill/Clav 875/125mg Tab 1 TAB TAB PO SCH (21:00)
== END 2016-11-11 12:03 | disposition home or self-care (01) | DRG 195 ==
LOC: ER 17:23 → MED/SURG 20:08
PROVIDERS: ADMIT Internal Medicine; ATTEND Internal Medicine
DX: J18.9 Pneumonia, unspecified organism (principal); R07.81 Pleurodynia; R09.02 Hypoxemia; I10 Essential (primary) hypertension; F32.9 Major depressive disorder, single episode, unspecified
CPT/HCPCS: 36415; 71010; 71275; 80053; 82553; 83605; 83735; 84484; 85025; 85379; 86140; 87040; 93005; 93010; 96365; 96367; 99285 ×2; J0456; 80048; 94640; 94761; J0696; J7030; J7050

== ENCOUNTER 2016-11-13 12:30 | Inpatient (IN) | payer OTHER, MEDICARE ==
[2016-11-27] MEDS ORDERED: LIDOCAINE W/ SODIUM BICARB 0.5 ML SYR ONE ×3 (10:17→12:10)
[2016-11-27] MEDS ORDERED: ceFAZolin Inj 2gm (Premix) 0 ML IV ONE (10:17)
[2016-11-27] MEDS ORDERED: Lactated Ringers 1,000 ML PRIMARY IV ONE ×2 (10:18→14:57)
[2016-11-27 11:19] LABS: BILIRUBIN,URINE NEGATIVE (NEG); CLARITY,URINE CLEAR (CLEAR); COLOR,URINE YELLOW; GLUCOSE, URINE (UA) NEGATIVE (NEG); NITRATE,URINE NEGATIVE (NEG); OCCULT BLOOD,URINE NEGATIVE (NEG); PH,URINE 5.5 (5.0-8.5); PROTEIN,URINE NEGATIVE (NEG); UROBILINOGEN,URINE 0.2 mg/dL (0.2)
[2016-11-27 11:29] LABS: BACTERIA,URINE RARE; SQUAMOUS EPITHELIAL CELL,UR RARE
[2016-11-27] MEDS ORDERED: DEXAMETHASONE SOD PHOSPHATE 4 MG/1 ML VIAL ONE (11:31)
[2016-11-27] MEDS ORDERED: LIDOCAINE 2%/ EPI 1:200,000 - 20 ML VIAL ONE (11:31)
[2016-11-27] MEDS ORDERED: MIDAZOLAM 5 MG/1 ML ONE (11:32)
[2016-11-27] MEDS ORDERED: fentaNYL Inj 250 MCG/5 ML VIAL ONE (11:32)
[2016-11-27] MEDS ORDERED: BUPivacaine Inj 0.5% PF (5mg/ml) 30ml vial ONE (11:32)
[2016-11-27] MEDS ORDERED: IPRATROPIUM/ALBUTEROL SULFATE 3 ML NEB NEB ONE ×2 (11:35→17:44)
[2016-11-27] MEDS ORDERED: SUCCINYLCHOLINE CHLORIDE 20 MG/1 ML - 10 ML ONE (11:38)
[2016-11-27] MEDS ORDERED: LIDOCAINE MPF 2% - 5 ML (20 MG/1 ML) ONE (11:38)
[2016-11-27] MEDS ORDERED: BUPIVACAINE 0.25% W/ EPI - 10 ML VIAL ONE (11:39)
[2016-11-27 11:41] LABS: URINE SAMPLE TYPE CLEAN CATCH URINE
[2016-11-27] MEDS ORDERED: ceFAZolin Inj 3 GM in Sodium Chloride 0.9% 100 ML IV PRN (12:13)
--- NOTE | 2016-11-27 13:55 | CRNA.PROCE ---
Nerve Block Documentation - - Type of Nerve Block Used: Left Interscalene Block Position for Nerve Block: Supine Moniters Used During Block: EKG, SPO2, NIBP Oxygen Sumpplented: Yes Sedation Used - Enter Amount in Comment Field: Midazolam (mg): Yes (4mg), Fentanyl (mcg): Yes (100mcg) Skin Prep Used: ChloroPrep Draped: No Technique: Ultrasound (both) Nerve Block Needle Used: [employer] 50 mm Stimulation Hz: 2 Stimulation Staring mA: 1.8 Stimulation Ending mA: 0.4 Local Anesthetic - Enter Amt in Comment Field: 0.5 % Bupivacaine Plain (mL): Yes (20ml), 2 % Xylocaine with Epinephrine 1:200,000 (mL): Yes (20ml) Additives to Nerve Blocks: Dexamethasone (mL): Yes (2ml (8mg))
[2016-11-27] MEDS ORDERED: TRANEXAMIC ACID 1,000 MG / 10 ML VIAL ONE (14:04)
[2016-11-27] MEDS ORDERED: Prochlorperazine Tab 10 MG TAB PO PRN ×3 (14:50→17:44)
[2016-11-27] MEDS ORDERED: CALCIUM CARBONATE 500 MG (TUMS) CHEWABLE TABLET PO PRN ×3 (14:50→17:44)
[2016-11-27] MEDS ORDERED: HYDROmorphone 2 MG/1 ML IVP PRN ×2 (14:50→17:44)
[2016-11-27] MEDS ORDERED: KETOROLAC 15 MG/1 ML VIAL IVP PRN (14:50)
[2016-11-27] MEDS ORDERED: ONDANSETRON 4 MG/2 ML VIAL IVP PRN ×2 (14:50→17:44)
[2016-11-27] MEDS ORDERED: diphenhydrAMINE 25 MG CAPSULE PO PRN ×3 (14:50→17:44)
[2016-11-27] MEDS ORDERED: ACETAMINOPHEN 325 MG TABLET PO PRN ×3 (14:50→17:44)
[2016-11-27] MEDS ORDERED: oxyCODONE-ACETAMINOPHEN 5-325 TAB PO PRN (14:50)
[2016-11-27] MEDS ORDERED: CELECOXIB 200 MG CAPSULE PO PRN ×2 (14:50→17:44)
[2016-11-27] MEDS ORDERED: BISACODYL 10 MG SUPPOSITORY RECTAL PRN ×3 (14:50→17:44)
[2016-11-27] MEDS ORDERED: Ondansetron ODT Tab 8 MG TAB PO PRN ×3 (14:50→17:44)
[2016-11-27] MEDS ORDERED: NORMAL SALINE 10 ML SYRINGE FLUSH IVP PRN ×3 (14:50→17:44)
[2016-11-27] MEDS ORDERED: MAG HYDROX/AL HYDROX/SIMETH 30 ML SUSP PO PRN ×3 (14:50→17:44)
[2016-11-27] MEDS ORDERED: BISACODYL 5 MG TABLET PO PRN ×3 (14:50→17:44)
[2016-11-27] MEDS ORDERED: ceFAZolin Inj 3 GM in Sodium Chloride 0.9% 100 ML IV SCH (15:00)
[2016-11-27] MEDS ORDERED: Lactated Ringers 1,000 ML PRIMARY IV SCH ×2 (15:00→15:30)
--- NOTE | 2016-11-27 15:14 | PDOC(PROG) ---
General Note Progress Note: BRIEF OP NOTE PRE-OP DIAGNOSIS: Painful Left Reverse TSA POST-OP DIAGNOSIS: Same PROCEDURE: Revision Left Shoulder Glenoid and Humeral Component with ectopic bone resection. SURGEON: Erick Galan MD ASST: REJI Ramires Anesthesia: GETA with interscalene block FINDINGS: Removed Polyethlyene and glenosphere. Removed 2cm x 1cm ectopic bone from inferior and posterior glenoid. New implants: 40mm Reverse Shoulder Glenosphere (increased from 36mm previously ) Humeral polyethlene liner 40mm +3 offset POSTOP PLAN: Shoulder immobilizer for 2-3 weeks. Will initiate motion after 3 weeks. EBL: 300cc
[2016-11-27] MEDS ORDERED: fentaNYL Inj 100 MCG/2 ML VIAL IVP PRN (15:21)
[2016-11-27] MEDS ORDERED: HYDROmorphone 2 MG/1 ML ONE (15:33)
--- NOTE | 2016-11-27 17:00 | DI ---
XR SHOULDER 1VW,11/27/2016 3:08 PM: Clinical History: Postoperative vision of the left shoulder posterior approach. Previous Exam: May 19, 2014 Findings: A single portable view of the left shoulder are obtained, and demonstrate postsurgical changes consis tent with a left total shoulder arthroplasty. There is foreshortening of the distal buccal most consistent with prior Loren. The adjacent left lung and chest wall are unremarkable except for some subsegmental atelectasis. Impression: Postsurgical changes status post left total shoulder arthroplasty.
[2016-11-27] MEDS ORDERED: IBUPROFEN 400 MG TABLET PO PRN (17:44)
[2016-11-27] MEDS: oxyCODONE-ACETAMINOPHEN 5-325 TAB PO PRN (18:52)
[2016-11-27] MEDS ORDERED: DOCUSATE 100 MG CAPSULE PO SCH (21:00)
[2016-11-27] MEDS: DOCUSATE 100 MG CAPSULE PO SCH (21:44)
[2016-11-27] MEDS: ceFAZolin Inj 3 GM in Sodium Chloride 0.9% 100 ML IV SCH (21:44)
[2016-11-27] MEDS: Lactated Ringers 1,000 ML PRIMARY IV SCH (21:52)
[2016-11-27] MEDS: KETOROLAC 15 MG/1 ML VIAL IVP PRN (22:48)
[2016-11-28] MEDS: oxyCODONE-ACETAMINOPHEN 5-325 TAB PO PRN ×7 (00:23→23:31)
[2016-11-28] MEDS: ceFAZolin Inj 3 GM in Sodium Chloride 0.9% 100 ML IV SCH (04:17)
[2016-11-28 05:47] LABS: HEMATOCRIT 45.7 % (42.0-52.0); MEAN CORPUSCULAR HEMOGLOBIN 29.6 PG (27-31); MEAN CORPUSCULAR HGB CONC 32.8 g/dL (33-37); MEAN CORPUSCULAR VOLUME 90.3 FL (80-90); MEAN PLATELET VOLUME 11.1 FL (7.4-12.2); RED BLOOD COUNT 5.06 10^6/uL (4.70-6.10)
[2016-11-28 05:54] LABS: CALCIUM 9.3 mg/dL (8.7-10.7)
[2016-11-28] MEDS: Lactated Ringers 1,000 ML PRIMARY IV SCH (05:58)
[2016-11-28] MEDS ORDERED: Esomeprazole DR 20mg Capsule PO SCH (07:00)
[2016-11-28] MEDS: KETOROLAC 15 MG/1 ML VIAL IVP PRN ×2 (07:10→23:30)
[2016-11-28] MEDS: Esomeprazole DR 20mg Capsule PO SCH (07:11)
[2016-11-28] MEDS: DOCUSATE 100 MG CAPSULE PO SCH ×2 (08:45→20:02)
[2016-11-28] MEDS: ENOXAPARIN SODIUM 30 MG/0.3 ML SYRINGE SUBCUT SCH (08:46)
[2016-11-28] MEDS ORDERED: ENOXAPARIN SODIUM 30 MG/0.3 ML SYRINGE SUBCUT SCH (09:00)
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
--- NOTE | 2016-11-28 12:53 | CRNA.PROGR ---
Anesthesia Note Anesthesia Progress Note: He is sitting up in bed eating lunch. He is ambulatory and his ISB has resolved. He has not questions or concerns regarding his anesthetic care. Vital Signs (Last 8 hours) Temp Pulse Resp BP Pulse Ox 11/28/16 11:07 97.7 F 63 17 157/82 94 11/28/16 06:36 97.5 F 75 17 162/89 93 11/28/16 05:33 91 11/28/16 05:00 97.6 F 69 20 92 Laboratory Results 11/27/16 11/27/16 11/28/16 Range/Units 10:57 11:21 04:19 WBC 14.68 H (4.8-10.8) 10^3/uL RBC 5.06 (4.70-6.10) 10^6/uL Hgb 15.0 (14.0-18.0) g/dL Hct 45.7 (42.0-52.0) % MCV 90.3 H (80-90) FL MCH 29.6 (27-31) PG MCHC 32.8 L (33-37) g/dL RDW Std Deviation 44.8 (39-50) fL RDW Coeff of Nelda 13.7 (11.5-14.5) % Plt Count 246 (140-350) 10*3/uL MPV 11.1 (7.4-12.2) FL Sodium 138 (135-145) meq/L Potassium 4.2 (3.8-5.2) meq/L Chloride 107 (98-112) meq/L Carbon Dioxide 19 L (23-33) meq/L Anion Gap 12 (5-20) BUN 28 H (7-22) mg/dL Creatinine 1.4 (0.70-1.50) mg/dL Estimated GFR 50 (>60 ml/min/1.73m(2)) BUN/Creatinine Ratio 20.00 (6-20) Glucose 191 H (78-110) mg/dL Calculated Osmolality 296.0 H (267-292) mOsm/kg Calcium 9.3 (8.7-10.7) mg/dL Ur Collection Type Clean catch urine Urine Color Yellow Urine Clarity Clear (CLEAR) Urine pH 5.5 (5.0-8.5) Ur Specific [place] 1.020 (1.005-1.030) Urine Protein Negative (NEG) mg/dl Urine Glucose (UA) Negative (NEG) mg/dL Urine Ketones Negative (NEG) Urine Occult Blood Negative (NEG) Urine Nitrate Negative (NEG) Urine Bilirubin Negative (NEG) Urine Urobilinogen 0.2 (0.2) mg/dL Ur Leukocyte Esterase Negative (NEG) Urine RBC 1-3 (NONE) /hpf Urine WBC 1-3 (NONE) Ur Squamous Epith Cells Rare (NONE) Ur Renal Epithelial Cell None (NONE) Urine Crystals None Urine Bacteria Rare (NONE) Urine Casts None Urine Mucus None (NONE) Urine Trichomonas None (NONE) Urine Yeast None (NONE) Blood Type O NEGATIVE Antibody Screen Negative
[2016-11-28] MEDS: Sodium Chloride 0.9% 1,000 ML IV SCH (13:38)
[2016-11-28] MEDS ORDERED: LOSARTAN 50 MG TABLET PO ONE (16:08)
--- NOTE | 2016-11-28 16:27 | ORTHO.PROG ---
Last Taken Vital Signs: Vital Signs - Last Taken Temperature 98 F 11/28/16 15:54 Pulse Rate 67 11/28/16 15:54 Respiratory Rate 18 11/28/16 15:54 Blood Pressure 156/96 11/28/16 15:54 Pulse Ox 94 11/28/16 15:54 Subjective: Patient stable states his pain is reasonably controlled but does not feel he can take care of himself at home Objective: Dressing is clean and dry left upper extremity in place. Motor and sensory exam grossly intact limited exam was questioning Laboratory Results 11/28/16 Range/Units 04:19 WBC 14.68 H (4.8-10.8) 10^3/uL RBC 5.06 (4.70-6.10) 10^6/uL Hgb 15.0 (14.0-18.0) g/dL Hct 45.7 (42.0-52.0) % MCV 90.3 H (80-90) FL MCH 29.6 (27-31) PG MCHC 32.8 L (33-37) g/dL RDW Std Deviation 44.8 (39-50) fL RDW Coeff of Nelda 13.7 (11.5-14.5) % Plt Count 246 (140-350) 10*3/uL MPV 11.1 (7.4-12.2) FL Sodium 138 (135-145) meq/L Potassium 4.2 (3.8-5.2) meq/L Chloride 107 (98-112) meq/L Carbon Dioxide 19 L (23-33) meq/L Anion Gap 12 (5-20) BUN 28 H (7-22) mg/dL Creatinine 1.4 (0.70-1.50) mg/dL Estimated GFR 50 (>60 ml/min/1.73m(2)) BUN/Creatinine Ratio 20.00 (6-20) Glucose 191 H (78-110) mg/dL Calculated Osmolality 296.0 H (267-292) mOsm/kg Calcium 9.3 (8.7-10.7) mg/dL Intake and Output - 8hrs 11/27/16 11/28/16 11/28/16 11/28/16 21:59 05:59 13:59 21:59 Intake: IV 200 760 Intake Oral Amount 320 400 920 300 Output: Output, Urine Amount 250 Output, Estimated Blood 300 Loss Amount Other: Percent Meal Consumed 100% 75% Number of Voids 1 1 Weight 134.717 kg 138.074 kg Weight Measurement Method Standing Scale Vital Signs (24 hrs) Temp Pulse Resp BP Pulse Ox 11/28/16 15:54 98 F 67 18 156/96 94 11/28/16 11:07 97.7 F 63 17 157/82 94 11/28/16 06:36 97.5 F 75 17 162/89 93 11/28/16 05:33 91 11/28/16 05:00 97.6 F 69 20 92 11/28/16 00:32 97.5 F 92 20 161/92 92 11/27/16 21:00 98.7 F 77 18 170/86 91 11/27/16 19:00 91 16 11/27/16 17:46 97.5 F 84 18 155/84 91 11/27/16 17:14 97.6 F 80 18 158/90 91 11/27/16 17:00 97.8 F 81 16 156/93 90 Assessment: Left revision reverse total shoulder doing well Plan: Continue with current plan We'll need to coordinate with Dr. Galan in regards to when to start physical therapy pain prescriptions and questions on anticoagulation.
--- NOTE | 2016-11-28 16:41 | OPS SHOULD ---
Diagnosis : Left Total Shoulder Revision Referral Reason: Instruction in Activities of Daily Living O: The patient was instructed in activities of daily living including dressing and bathing as well as shoulder do's and don'ts. P: No further therapy is indicated at this time. The patient will begin outpatient physical therapy. KIKE
[2016-11-29] MEDS: Sodium Chloride 0.9% 1,000 ML IV SCH ×2 (03:15→21:36)
[2016-11-29] MEDS: oxyCODONE-ACETAMINOPHEN 5-325 TAB PO PRN ×4 (03:27→15:39)
[2016-11-29 04:32] LABS: BASOPHILS # (AUTO) 0.02 10*3/UL; BASOPHILS % (AUTO) 0.1 % (0-1); EOSINOPHILS # (AUTO) 0.11 10*3/UL; EOSINOPHILS % (AUTO) 0.6 % (0-8); HEMATOCRIT 45.1 % (42.0-52.0); HEMOGLOBIN 14.9 g/dL (14.0-18.0); LYMPHOCYTES # (AUTO) 2.36 10*3/uL; MEAN CORPUSCULAR HEMOGLOBIN 30.2 PG (27-31); MEAN CORPUSCULAR VOLUME 91.3 FL (80-90); MEAN PLATELET VOLUME 10.2 FL (7.4-12.2); MONOCYTES # (AUTO) 1.58 10*3/UL (0.3-0.8); MONOCYTES % (AUTO) 9.2 % (5-15); NEUTROPHILS # (AUTO) 13.03 10*3/UL; NEUTROPHILS % (AUTO) 76.1 % (50-80); RED BLOOD COUNT 4.94 10^6/uL (4.70-6.10)
[2016-11-29 04:43] LABS: PLATELET MORPHOLOGY COMMENT NORMAL MORPHOLOGY (NORM); RBC MORPHOLOGY COMMENT NORMAL MORPHOLOGY (NORM); WBC MORPHOLOGY COMMENT NORMAL MORPHOLOGY (NORM)
[2016-11-29] MEDS: Esomeprazole DR 20mg Capsule PO SCH (07:00)
--- NOTE | 2016-11-29 07:59 | ORTHO.PROG ---
Last Taken Vital Signs: Vital Signs - Last Taken Temperature 97.6 F 11/29/16 04:25 Pulse Rate 66 11/29/16 07:00 Respiratory Rate 16 11/29/16 07:00 Blood Pressure 158/97 11/29/16 04:25 Pulse Ox 95 11/29/16 04:40 Subjective: Patient notes his body hurts generally, the neck down shoulder is also painful doing relatively well. Objective: The dressing on the shoulder is clean and dry he is in his DonJoy a gunslinger brace with no active issues. He has full digit extension he can make a fist he has dorsiflexion of the wrist and palmar flexion of the wrist. Good median ulnar and radial sensory and appears to be intact. He has decreased light touch sensation along the upper lateral brachiocutaneous but it seems like he fires his deltoid in a normal manner with testing. Laboratory Results 11/29/16 Range/Units 04:13 WBC 17.13 H (4.8-10.8) 10^3/uL RBC 4.94 (4.70-6.10) 10^6/uL Hgb 14.9 (14.0-18.0) g/dL Hct 45.1 (42.0-52.0) % MCV 91.3 H (80-90) FL MCH 30.2 (27-31) PG MCHC 33.0 (33-37) g/dL RDW Std Deviation 46.2 (39-50) fL RDW Coeff of Nelda 14.1 (11.5-14.5) % Plt Count 205 (140-350) 10*3/uL MPV 10.2 (7.4-12.2) FL Immature Gran % (Auto) 0.2 (0-5) % Neut % (Auto) 76.1 (50-80) % Lymph % (Auto) 13.8 (10-50) % [place] % (Auto) 9.2 (5-15) % Eos % (Auto) 0.6 (0-8) % Baso % (Auto) 0.1 (0-1) % Immature Gran # (Auto) 0.03 10*3/UL Neut # (Auto) 13.03 10*3/UL Lymph # (Auto) 2.36 10*3/uL [place] # (Auto) 1.58 H (0.3-0.8) 10*3/UL Eos # (Auto) 0.11 10*3/UL Baso # (Auto) 0.02 10*3/UL WBC Morphology Comment Normal morphology (NORM) Plt Morphology Comment Normal morphology (NORM) RBC Morph Comment Normal morphology (NORM) Assessment: 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 The patient with multiple comorbidities and slow with mobilization Plan: Patient will continue his hospital stay with physical therapy for mobilization and he did have an elevation of his white cell count question whether this is related to pulmonary status with a history of significant COPD. Patient will be worked up further for source of elevated white cell count.
[2016-11-29 08:04] LABS: BUN/CREATININE RATIO 23.57 (6-20); CALCIUM 9.1 mg/dL (8.7-10.7); SERUM ALBUMIN 3.6 g/dL (3.5-4.8)
[2016-11-29] MEDS: DOCUSATE 100 MG CAPSULE PO SCH ×2 (08:23→22:24)
[2016-11-29] MEDS: ENOXAPARIN SODIUM 30 MG/0.3 ML SYRINGE SUBCUT SCH (08:23)
--- NOTE | 2016-11-29 08:50 | PDOC(PROG) ---
Interval History: Doing well overall generalized weakness Dr. Melgoza evaluated his left shoulder. No complain occasional cough Objective : Data - Labs CBC and BMP: 11/29/16 04:13 11/29/16 04:13 Labs - Last 24 Hours: Laboratory Results 11/29/16 Range/Units 04:13 WBC 17.13 H (4.8-10.8) 10^3/uL RBC 4.94 (4.70-6.10) 10^6/uL Hgb 14.9 (14.0-18.0) g/dL Hct 45.1 (42.0-52.0) % MCV 91.3 H (80-90) FL MCH 30.2 (27-31) PG MCHC 33.0 (33-37) g/dL RDW Std Deviation 46.2 (39-50) fL RDW Coeff of Nelda 14.1 (11.5-14.5) % Plt Count 205 (140-350) 10*3/uL MPV 10.2 (7.4-12.2) FL Immature Gran % (Auto) 0.2 (0-5) % Neut % (Auto) 76.1 (50-80) % Lymph % (Auto) 13.8 (10-50) % [place] % (Auto) 9.2 (5-15) % Eos % (Auto) 0.6 (0-8) % Baso % (Auto) 0.1 (0-1) % Immature Gran # (Auto) 0.03 10*3/UL Neut # (Auto) 13.03 10*3/UL Lymph # (Auto) 2.36 10*3/uL [place] # (Auto) 1.58 H (0.3-0.8) 10*3/UL Eos # (Auto) 0.11 10*3/UL Baso # (Auto) 0.02 10*3/UL WBC Morphology Comment Normal morphology (NORM) Plt Morphology Comment Normal morphology (NORM) RBC Morph Comment Normal morphology (NORM) Sodium 141 (135-145) meq/L Potassium 4.3 (3.8-5.2) meq/L Chloride 111 (98-112) meq/L Carbon Dioxide 21 L (23-33) meq/L Anion Gap 9 (5-20) BUN 33 H (7-22) mg/dL Creatinine 1.4 (0.70-1.50) mg/dL Estimated GFR 50 (>60 ml/min/1.73m(2)) BUN/Creatinine Ratio 23.57 H (6-20) Glucose 106 (78-110) mg/dL Calculated Osmolality 298.0 H (267-292) mOsm/kg Calcium 9.1 (8.7-10.7) mg/dL Total Bilirubin 0.4 (0.3-1.2) mg/dL AST 39 (21-57) IU/L ALT 37 (21-72) IU/L Alkaline Phosphatase 51 (38-126) IU/L Total Protein 6.7 (6.1-8.0) g/dL Albumin 3.6 (3.5-4.8) g/dL Globulin 3.1 (2.50-4.10) g/dL Albumin/Globulin Ratio 1.10 L (1.3-2.0) mg/g Objective : Exam - General General Appearance: Cooperative - Respiratory Respiratory Exam: Decreased Breath Sounds - Cardiovascular Cardiovascular Exam: No Murmur, No Clicks - GI/Abdominal GI/Abdominal Exam: Normal Bowel Sounds, Non Tender, Soft - Extremities Extremities Exam: No Clubbing Present, No Edema Present Assessment and Plan - Patient Problems (1) S/P shoulder surgery Current Visit: Yes Status: Acute Comment: Discussed the case with Dr. Melgoza and Dr. Galan no physical therapy until he sees Dr. Galan in regards to his shoulder one aspirin a day for anticoagulation (2) Depression Current Visit: No Status: Acute Comment: Continue SSRI (3) GERD (gastroesophageal reflux disease) Current Visit: No Status: Chronic Comment: Continue PPI Qualifiers: Esophagitis presence: esophagitis presence not specified Qualifier Code (s): (K21.9) Gastro-esophageal reflux disease without esophagitis (4) Hypertension Current Visit: No Status: Chronic Comment: Controlled (5) Cough Current Visit: No Status: Acute Comment: Check chest x-ray
--- NOTE | 2016-11-29 10:32 | DI ---
XR CXR 2VW PA/LAT,11/29/2016 8:56 AM: Clinical History: Cough Previous Exam: November 08, 2016 Findings: PA and lateral views of the chest are obtained, and demonstrate subsegmental atelectasis in the mid l eft lung. The lungs are otherwise clear. The cardiomediastinum is unremarkable. There is postsurgical change consistent with a left total shoulder arthroplasty. Impression: Subsegmental atelectasis in the left midlung field.
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
[2016-11-29] MEDS ORDERED: LIDOCAINE W/ SODIUM BICARB 0.5 ML SYR ONE (13:55)
--- NOTE | 2016-11-29 16:22 | OT.PROG ---
Progress Note Progress Note: S; pt stats that he will have help at home for a little while from granddaughter. She reports wanting to know how to work brace. O: pt was seen in the afternoon today and was accompanied by granddaughter. She was educated on donning/doffing of don alison brace. She participated well and appeared to understand placement of elbow and importance of straps adjusted correctly. A: pt's granddaughter completed donning and doffing of sling with SBA and vc's well and believe she can complete tasks successfully. P: continue per plan of care.
--- NOTE | 2016-11-29 17:02 | PT.PROG ---
Progress Note Progress Note: s. Patient stated that he is feeling better this afternoon compared to this afternoon. O. Patient ambulated 175 feet to the therapy gym where he performed balance exercises in the form of; hurdles with foam pad obstacles x 3 laps, Patient was fitted for and instructed on proper use of a single point cane. Patient ambulated with single point cane 175 feet back to his room. A. Patient tolerated exercises well, he is mildly impulsive however was able to correct himself he was able to perform all balance exercises however was much more stable with the single point cane. Patient would continue to benefit from skilled therapy at this time to increase balance and stability. P. continue POC.
[2016-11-29] MEDS ORDERED: fentaNYL Inj 100 MCG/2 ML VIAL IVP PRN (17:06)
[2016-11-29] MEDS ORDERED: diphenhydrAMINE 50 MG/1 ML VIAL IVP ONE (17:30)
[2016-11-30 04:47] VITALS: TEMP 97.9
[2016-11-30] MEDS: ENOXAPARIN SODIUM 30 MG/0.3 ML SYRINGE SUBCUT SCH (08:13)
[2016-11-30] MEDS ORDERED: HYDROcodone-APAP 7.5 MG-325 MG TABLET PO PRN (08:13)
[2016-11-30] MEDS: Esomeprazole DR 20mg Capsule PO SCH (08:13)
[2016-11-30] MEDS: DOCUSATE 100 MG CAPSULE PO SCH (08:13)
[2016-11-30] MEDS: KETOROLAC 15 MG/1 ML VIAL IVP PRN (08:14)
--- NOTE | 2016-11-30 08:15 | ORTHO.PROG ---
Last Taken Vital Signs: Vital Signs - Last Taken Temperature 97.9 F 11/30/16 04:43 Pulse Rate 74 11/30/16 07:00 Respiratory Rate 18 11/30/16 07:00 Blood Pressure 136/78 11/30/16 04:43 Pulse Ox 94 11/30/16 05:18 Subjective: Patient states he is doing well today has some itching Percocet Objective: Patient is in a sling his dressing is clean and dry patient does have normal sensation today on the upper lateral brachial cutaneous, he can fire deltoid against gentle resistance. Motor and sensory exam otherwise is intact with good motion of fingers and digits. Vital Signs (24 hrs) Temp Pulse Pulse Resp BP Pulse Ox 11/30/16 07:00 74 18 11/30/16 05:18 94 11/30/16 04:43 97.9 F 63 20 136/78 95 11/29/16 23:09 98.5 F 61 18 151/79 95 11/29/16 20:08 98.2 F 64 18 140/79 97 11/29/16 19:00 66 61 18 11/29/16 16:48 97.8 F 68 20 172/87 97 11/29/16 12:46 97.8 F 72 18 143/82 95 11/29/16 08:19 97.2 F 60 18 158/85 91 Assessment: Left reverse total shoulder revision of articulating components with removal of heterotopic bone doing well Plan: Patient will continue with physical therapy mobilize as tolerated we will switch his pain medication to Moon if he does better, controlling pain and decreasing need for IV medication which she is still getting.
[2016-11-30 08:32] VITALS: RESP 20
--- NOTE | 2016-11-30 10:07 | PT.PROG ---
Progress Note Progress Note: S. Patient states he feels much better today compared to previous treatments. O. Patient ambulated 175 feet with single point cane to the therapy gym where he performed exercises in the form of; marches, long arc quads, heel toe raises , ball squeezes and sit to stands all x 10 bilaterally, Patient performed balance exercises in the form of; heel toe walking, jacqueline step overs with 2 foam pads x 2 laps, Patient was left with OT for further therapy. A. Patient tolerated balance activities well this morning, he continues to make gains and continues to report decreased pain and increased balance. Patient has met all goals at this time. P. Continue POC until Discharge.
[2016-11-30 10:42] LABS: BASOPHILS # (AUTO) 0.03 10*3/UL; BASOPHILS % (AUTO) 0.3 % (0-1); BUN/CREATININE RATIO 23.84 (6-20); CALCIUM 8.8 mg/dL (8.7-10.7); EOSINOPHILS # (AUTO) 0.55 10*3/UL; EOSINOPHILS % (AUTO) 5.1 % (0-8); HEMATOCRIT 44.1 % (42.0-52.0); HEMOGLOBIN 13.9 g/dL (14.0-18.0); MEAN CORPUSCULAR HEMOGLOBIN 29.6 PG (27-31); MEAN CORPUSCULAR HGB CONC 31.5 g/dL (33-37); MEAN PLATELET VOLUME 10.8 FL (7.4-12.2); MONOCYTES # (AUTO) 1.04 10*3/UL (0.3-0.8); MONOCYTES % (AUTO) 9.7 % (5-15); NEUTROPHILS # (AUTO) 7.11 10*3/UL; NEUTROPHILS % (AUTO) 66.1 % (50-80); RED BLOOD COUNT 4.69 10^6/uL (4.70-6.10); SERUM ALBUMIN 3.6 g/dL (3.5-4.8)
[2016-11-30 10:58] LABS: PLATELET MORPHOLOGY COMMENT NORMAL MORPHOLOGY (NORM); RBC MORPHOLOGY COMMENT NORMAL MORPHOLOGY (NORM); WBC MORPHOLOGY COMMENT NORMAL MORPHOLOGY (NORM)
[2016-11-30] MEDS ORDERED: FUROSEMIDE 10 MG/1 ML - 4 ML IVP ONE (11:27)
--- NOTE | 2016-11-30 11:36 | DCSUMMARY ---
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 Diagnostic Data, Laboratory Data, and Procedures of Signifigance: Laboratory Results 11/27/16 11/27/16 11/28/16 Range/Units 10:57 11:21 04:19 WBC 14.68 H (4.8-10.8) 10^3/uL RBC 5.06 (4.70-6.10) 10^6/uL Hgb 15.0 (14.0-18.0) g/dL Hct 45.7 (42.0-52.0) % MCV 90.3 H (80-90) FL MCH 29.6 (27-31) PG MCHC 32.8 L (33-37) g/dL RDW Std Deviation 44.8 (39-50) fL RDW Coeff of Nelda 13.7 (11.5-14.5) % Plt Count 246 (140-350) 10*3/uL MPV 11.1 (7.4-12.2) FL Immature Gran % (Auto) (0-5) % Neut % (Auto) (50-80) % Lymph % (Auto) (10-50) % [place] % (Auto) (5-15) % Eos % (Auto) (0-8) % Baso % (Auto) (0-1) % Immature Gran # (Auto) 10*3/UL Neut # (Auto) 10*3/UL Lymph # (Auto) 10*3/uL [place] # (Auto) (0.3-0.8) 10*3/UL Eos # (Auto) 10*3/UL Baso # (Auto) 10*3/UL WBC Morphology Comment (NORM) Plt Morphology Comment (NORM) RBC Morph Comment (NORM) Sodium 138 (135-145) meq/L Potassium 4.2 (3.8-5.2) meq/L Chloride 107 (98-112) meq/L Carbon Dioxide 19 L (23-33) meq/L Anion Gap 12 (5-20) BUN 28 H (7-22) mg/dL Creatinine 1.4 (0.70-1.50) mg/dL Estimated GFR 50 (>60 ml/min/1.73m(2)) BUN/Creatinine Ratio 20.00 (6-20) Glucose 191 H (78-110) mg/dL Calculated Osmolality 296.0 H (267-292) mOsm/kg Calcium 9.3 (8.7-10.7) mg/dL Total Bilirubin (0.3-1.2) mg/dL AST (21-57) IU/L ALT (21-72) IU/L Alkaline Phosphatase (38-126) IU/L Total Protein (6.1-8.0) g/dL Albumin (3.5-4.8) g/dL Globulin (2.50-4.10) g/dL Albumin/Globulin Ratio (1.3-2.0) mg/g Ur Collection Type Clean catch urine Urine Color Yellow Urine Clarity Clear (CLEAR) Urine pH 5.5 (5.0-8.5) Ur Specific [place] 1.020 (1.005-1.030) Urine Protein Negative (NEG) mg/dl Urine Glucose (UA) Negative (NEG) mg/dL Urine Ketones Negative (NEG) Urine Occult Blood Negative (NEG) Urine Nitrate Negative (NEG) Urine Bilirubin Negative (NEG) Urine Urobilinogen 0.2 (0.2) mg/dL Ur Leukocyte Esterase Negative (NEG) Urine RBC 1-3 (NONE) /hpf Urine WBC 1-3 (NONE) Ur Squamous Epith Cells Rare (NONE) Ur Renal Epithelial Cell None (NONE) Urine Crystals None Urine Bacteria Rare (NONE) Urine Casts None Urine Mucus None (NONE) Urine Trichomonas None (NONE) Urine Yeast None (NONE) Blood Type O NEGATIVE Antibody Screen Negative 11/29/16 11/30/16 Range/Units 04:13 10:00 WBC 17.13 H 10.75 (4.8-10.8) 10^3/uL RBC 4.94 4.69 L (4.70-6.10) 10^6/uL Hgb 14.9 13.9 L (14.0-18.0) g/dL Hct 45.1 44.1 (42.0-52.0) % MCV 91.3 H 94.0 H (80-90) FL MCH 30.2 29.6 (27-31) PG MCHC 33.0 31.5 L (33-37) g/dL RDW Std Deviation 46.2 47.7 (39-50) fL RDW Coeff of [place] 14.1 14.1 (11.5-14.5) % Plt Count 205 211 (140-350) 10*3/uL MPV 10.2 10.8 (7.4-12.2) FL Immature Gran % (Auto) 0.2 0.2 (0-5) % Neut % (Auto) 76.1 66.1 (50-80) % Lymph % (Auto) 13.8 18.6 (10-50) % [place] % (Auto) 9.2 9.7 (5-15) % Eos % (Auto) 0.6 5.1 (0-8) % Baso % (Auto) 0.1 0.3 (0-1) % Immature Gran # (Auto) 0.03 0.02 10*3/UL Neut # (Auto) 13.03 7.11 10*3/UL Lymph # (Auto) 2.36 2.00 10*3/uL [place] # (Auto) 1.58 H 1.04 H (0.3-0.8) 10*3/UL Eos # (Auto) 0.11 0.55 10*3/UL Baso # (Auto) 0.02 0.03 10*3/UL WBC Morphology Comment Normal morphology Normal morphology (NORM) Plt Morphology Comment Normal morphology Normal morphology (NORM) RBC Morph Comment Normal morphology Normal morphology (NORM) Sodium 141 139 (135-145) meq/L Potassium 4.3 4.3 (3.8-5.2) meq/L Chloride 111 111 (98-112) meq/L Carbon Dioxide 21 L 20 L (23-33) meq/L Anion Gap 9 8 (5-20) BUN 33 H 31 H (7-22) mg/dL Creatinine 1.4 1.3 (0.70-1.50) mg/dL Estimated GFR 50 55 (>60 ml/min/1.73m(2)) BUN/Creatinine Ratio 23.57 H 23.84 H (6-20) Glucose 106 91 (78-110) mg/dL Calculated Osmolality 298.0 H 294.0 H (267-292) mOsm/kg Calcium 9.1 8.8 (8.7-10.7) mg/dL Total Bilirubin 0.4 0.5 (0.3-1.2) mg/dL AST 39 37 (21-57) IU/L ALT 37 34 (21-72) IU/L Alkaline Phosphatase 51 52 (38-126) IU/L Total Protein 6.7 6.5 (6.1-8.0) g/dL Albumin 3.6 3.6 (3.5-4.8) g/dL Globulin 3.1 2.9 (2.50-4.10) g/dL Albumin/Globulin Ratio 1.10 L 1.20 L (1.3-2.0) mg/g Ur Collection Type Urine Color Urine Clarity (CLEAR) Urine pH (5.0-8.5) Ur Specific [place] (1.005-1.030) Urine Protein (NEG) mg/dl Urine Glucose (UA) (NEG) mg/dL Urine Ketones (NEG) Urine Occult Blood (NEG) Urine Nitrate (NEG) Urine Bilirubin (NEG) Urine Urobilinogen (0.2) mg/dL Ur Leukocyte Esterase (NEG) Urine RBC (NONE) /hpf Urine WBC (NONE) Ur Squamous Epith Cells (NONE) Ur Renal Epithelial Cell (NONE) Urine Crystals Urine Bacteria (NONE) Urine Casts Urine Mucus (NONE) Urine Trichomonas (NONE) Urine Yeast (NONE) Blood Type Antibody Screen History and Physical pertinent to Admission: Course of Hospitalization: Is a very nice 71-year-old gentleman who comes in admitted under orthopedic surgery for left shoulder/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 Galan but when I saw the patient in consult he said he wasn't feeling stable enough for safe to go home physical therapy was continued and now is back to his normal self and strong enough to transition back home. He did have elevated WBC which is now normalized chest x-ray showed no pneumonia. Percocet for his pain gave him hives and I had to give him Benadryl to counteract this which the patient says worked very well. For pain I struck to the patient to take Tylenol the 3 times a day and also ibuprofen if this was not the taking care of the pain. If both of these together as a did not work and told him to call Dr. Galan is orthopedic surgeon for his primary care physician. He will also be taking the aspirin daily as recommended by Dr. Galan also other recommendations defer Dr. Melgoza other orthopedic surgeon that's been seeing him daily in regards to all aspects of his left shoulder surgery I also discussed this with him. On the date of discharge, the patient was examined: Gen.: No acute distress, alert, nontoxic Heart: Regular rate and rhythm, no murmurs, clicks, gallops, or rubs Lungs: Clear to auscultation bilaterally, breathing is nonlabored Abdomen/GI: Normal tones on auscultation, soft, nontender, nondistended Musculoskeletal/extremities: No clubbing, cyanosis, or edema Vitals reviewed and are listed below Vital Signs (24 hrs) Temp Pulse Pulse Resp BP Pulse Ox 11/30/16 08:31 97.9 F 73 20 156/78 97 11/30/16 07:00 74 18 11/30/16 05:18 94 11/30/16 04:43 97.9 F 63 20 136/78 95 11/29/16 23:09 98.5 F 61 18 151/79 95 11/29/16 20:08 98.2 F 64 18 140/79 97 11/29/16 19:00 66 61 18 11/29/16 16:48 97.8 F 68 20 172/87 97 11/29/16 12:46 97.8 F 72 18 143/82 95 Assessment and Plan: 1. As per discharge assessments above 2. Disposition: Home 3. Condition on discharge, stable and improved. 4. Diet: regular diet 5. Activities: resume normal activities 6. Follow-Up: 1. PCP Dr. Galan he has an appointment in 2 weeks 2. 7. Medications at the Time of Discharge: Home Medications Medication Instructions Recorded Confirmed Type Citalopram Hydrobromide [Celexa] 1 tab ORAL QAM #90 tab 05/10/16 11/27/16 Clinic Losartan Potassium 1 tab PO DAILY #90 tab 05/10/16 11/27/16 Clinic Ibuprofen 1 tab PO Q8H PRN #90 tab 10/08/16 11/27/16 Clinic Aspirin/Calcium Carbonate/Mag 325 mg PO DAILY #30 tablet 11/30/16 Rx [Aspir-Mox 325 Mg Tablet] 8. Time, care, counseling and coordination of care for this discharge is greater than 30 minutes. Exam - Vitals Vital Signs: Vital Signs Temperature 97.9 F Temperature Source Temporal Artery Scan Pulse Rate [Apical] 74 Pulse Rate [Pulse Oximeter] 73 Pulse Rate 76 Respiratory Rate 20 Blood Pressure [Right Arm] 156/78 Blood Pressure 149/89 Pulse Ox 97 Oxygen Flow Rate 3 Oxygen Flow Rate 2 Oxygen Delivery Method Nasal Cannula Height 6 ft 2 in Weight 138.527 kg Patient Problems - Patient Problem List (1) S/P shoulder surgery Current Visit: Yes Status: Acute (2) Depression Current Visit: No Status: Acute (3) GERD (gastroesophageal reflux disease) Current Visit: No Status: Chronic Qualifiers: Esophagitis presence: esophagitis presence not specified Qualifier Code (s): (K21.9) Gastro-esophageal reflux disease without esophagitis (4) Hypertension Current Visit: No Status: Chronic (5) Cough Current Visit: No Status: Acute
[2016-11-30] MEDS: Sodium Chloride 0.9% 1,000 ML IV SCH (11:50)
--- NOTE | 2016-11-30 11:54 | OT AM DAY ---
Diagnosis : Left Total Shoulder Revision AM - Occupational Therapy S: The patient reports that he feels off balance. He used to live by himself but his daughters are coming to help him. He reports that his arm is very sore this morning. O: Today the patient's shoulder was in neutral to slight extension. Today the patient was educated on dressing himself and we practiced this, which took some increased time. The patient was educated on shoulder do's and don'ts. He tends to move his shoulder a little bit more than protocol is allowing so a lot of education on shoulder precautions were given. There is no range of motion allowed at this time per doctor's request. The patient is also not to complete any rotational motions with the arm. The patient was educated on shoulder do's and don'ts. He was able to dress self with mod assist. His brace was adjusted to fit him more comfortably. The patient reported this felt much better and he was able to relax his shoulder more. His daughters will be helping him don and doff his brace as this was very difficult for him. A: The patient is using his arm a little bit more than protocol is allowing. Shoulder precautions were reiterated. P: Continue seeing patient BID during the week and one time per day over the weekend for upper extremity strengthening, ADLs, and overall functional mobility. EZIOD
--- NOTE | 2016-11-30 12:17 | OT AM DAY ---
Diagnosis : Left Total Shoulder Revision AM - Occupational Therapy S: The patient reports he is a little hesitant about getting in and out of the shower with his new shoulder. O: Today we worked on functional shower transfers. The patient's right arm is still somewhat limited with motion, but he was able to reach it across the tub to the grab bar as this is where the grab bar is in his bathtub. The patient was able to reach over and step over the tub ledge and then turn around safely in the tub. We practiced this a couple of times and the patient was able to do this with stand by assist. A: The patient is doing well. He is demonstrating abilities to go home with assistance from his daughters. His balance is much better and he is moving better. P: Patient will be discharged from occupational therapy. KIKE
== END 2016-11-30 12:28 | disposition home or self-care (01) | DRG 483 ==
LOC: MED/SURG 11-27 10:03 → SDSC 11-27 10:03 → UNDOADMOB 11-27 10:03 → OPS 11-27 10:03 → INTOOBSV 11-27 10:03 → EDSTATUS 11-27 12:30 → OPS 11-27 14:50 → UNDOADMOB 11-27 14:50 → MED/SURG 11-27 14:50
PROVIDERS: ADMIT Orthopaedic Surgery Sports Medicine; ATTEND Orthopaedic Surgery Sports Medicine
PROC: 0RPK0JZ Removal of Synthetic Substitute from Left Shoulder Joint, Open Approach (ICD-10-PCS; 2016-11-27)
PROC: 0RRK0JZ Replacement of Left Shoulder Joint with Synthetic Substitute, Open Approach (ICD-10-PCS; principal; 2016-11-27 12:30)
DX: M25.512 Pain in left shoulder (principal); Z96.612 Presence of left artificial shoulder joint; K21.9 Gastro-esophageal reflux disease without esophagitis; I10 Essential (primary) hypertension; R05 Cough; F32.9 Major depressive disorder, single episode, unspecified
CPT/HCPCS: 36415; 71020; 73020; 80048; 80053; 81001; 85025; 85027; 86850; 86900; 86901; 87641; 94150; 94761; 97161; 97530; 97535; J0330; J0690; J1100; J1170; J1200; J1650; J1885; J2001; J2250; J3010; J3490; J7030; J7050; J7120; J7620

== ENCOUNTER → 2016-11-19 | Outpatient (CLI) | payer OTHER, MEDICARE | LOC: MMPC 11:11 | PROVIDERS: ATTEND Internal Medicine | DX: R09.02 Hypoxemia (principal); M19.012 Primary osteoarthritis, left shoulder; G47.33 Obstructive sleep apnea (adult) (pediatric); I10 Essential (primary) hypertension; Z87.01 Personal history of pneumonia (recurrent) | CPT/HCPCS: 99214; G0463 ==

== ENCOUNTER → 2016-11-21 | Outpatient (CLI) | payer OTHER, MEDICARE ==
[2016-11-21 11:13] LABS: BASOPHILS # (AUTO) 0.08 10*3/UL; BASOPHILS % (AUTO) 0.8 % (0-1); EOSINOPHILS # (AUTO) 0.38 10*3/UL; EOSINOPHILS % (AUTO) 3.8 % (0-8); HEMATOCRIT 47.4 % (42.0-52.0); HEMOGLOBIN 16.1 g/dL (14.0-18.0); LYMPHOCYTES # (AUTO) 2.28 10*3/uL; MEAN CORPUSCULAR HEMOGLOBIN 30.4 PG (27-31); MEAN CORPUSCULAR VOLUME 89.6 FL (80-90); MEAN PLATELET VOLUME 10.3 FL (7.4-12.2); MONOCYTES # (AUTO) 0.68 10*3/UL (0.3-0.8); MONOCYTES % (AUTO) 6.7 % (5-15); NEUTROPHILS # (AUTO) 6.65 10*3/UL; NEUTROPHILS % (AUTO) 65.8 % (50-80); RED BLOOD COUNT 5.29 10^6/uL (4.70-6.10)
[2016-11-21 11:25] LABS: PLATELET MORPHOLOGY COMMENT NORMAL MORPHOLOGY (NORM); RBC MORPHOLOGY COMMENT NORMAL MORPHOLOGY (NORM); WBC MORPHOLOGY COMMENT NORMAL MORPHOLOGY (NORM)
== END ==
LOC: LAB 10:58
PROVIDERS: ATTEND Orthopaedic Surgery Sports Medicine
DX: M25.512 Pain in left shoulder (principal); Z96.612 Presence of left artificial shoulder joint
CPT/HCPCS: 36415; 85025

== ENCOUNTER 2016-12-07 12:50 | Emergency (ER) | payer OTHER, MEDICARE ==
[2016-12-07] MEDS: NORMAL SALINE 10 ML SYRINGE FLUSH IVP PRN ×2 (13:21→14:52)
[2016-12-07 13:33] LABS: BASOPHILS # (AUTO) 0.03 10*3/UL; BASOPHILS % (AUTO) 0.3 % (0-1); EOSINOPHILS # (AUTO) 0.42 10*3/UL; EOSINOPHILS % (AUTO) 3.6 % (0-8); HEMATOCRIT 43.6 % (42.0-52.0); HEMOGLOBIN 14.3 g/dL (14.0-18.0); LYMPHOCYTES # (AUTO) 1.54 10*3/uL; MEAN CORPUSCULAR HEMOGLOBIN 29.9 PG (27-31); MEAN CORPUSCULAR HGB CONC 32.8 g/dL (33-37); MEAN CORPUSCULAR VOLUME 91.2 FL (80-90); MEAN PLATELET VOLUME 10.5 FL (7.4-12.2); MONOCYTES # (AUTO) 0.81 10*3/UL (0.3-0.8); MONOCYTES % (AUTO) 6.9 % (5-15); NEUTROPHILS # (AUTO) 8.85 10*3/UL; NEUTROPHILS % (AUTO) 75.7 % (50-80); RED BLOOD COUNT 4.78 10^6/uL (4.70-6.10)
[2016-12-07 13:36] LABS: PLATELET MORPHOLOGY COMMENT NORMAL MORPHOLOGY (NORM); RBC MORPHOLOGY COMMENT NORMAL MORPHOLOGY (NORM); WBC MORPHOLOGY COMMENT NORMAL MORPHOLOGY (NORM)
[2016-12-07 13:42] VITALS: RESP 18; TEMP 98.1
[2016-12-07 13:42] LABS: BLOOD UREA NITROGEN 29 mg/dL (7-22); BUN/CREATININE RATIO 24.16 (6-20); EST GLOMERULAR FILTRATION > 60 (>60 ml/min/1.73m(2))
[2016-12-07] MEDS ORDERED: FUROSEMIDE 10 MG/1 ML - 2 ML VIAL IVP ONE (14:44)
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
--- NOTE | 2016-12-07 15:49 | DI ---
VENOUS DOPPLER ULTRASOUND OF BOTH LOWER EXTREMITIES, 12/07/2016 1:07 PM: Clinical History: Bilateral lower extremity swelling. Previous Exam: None at this facility. Technique: 2D real-time imaging is supplemented with color Doppler ultrasound. Compression and augmen tation maneuvers were performed. The deep venous system from the groin to the popliteal fossa for both legs is normal. The long saphen ous veins are also normal. Reading: Negative venous Doppler ultrasound of both lower extremities for deep vein thrombosis.
== END 2016-12-07 15:09 | disposition home or self-care (01) ==
LOC: ER 12:50
DX: R60.0 Localized edema (principal); R06.02 Shortness of breath; I10 Essential (primary) hypertension; E78.5 Hyperlipidemia, unspecified; R79.1 Abnormal coagulation profile; R22.43 Localized swelling, mass and lump, lower limb, bilateral; Z99.81 Dependence on supplemental oxygen; Z98.890 Other specified postprocedural states
CPT/HCPCS: 80053; 83880; 85025; 85379; 93970; 96374; 99283; J1940

== ENCOUNTER → 2016-12-10 | Outpatient (CLI) | payer OTHER, MEDICARE | LOC: MMPC 11:11 | PROVIDERS: ATTEND Internal Medicine | DX: R60.0 Localized edema (principal); I10 Essential (primary) hypertension; Z96.612 Presence of left artificial shoulder joint; Z96.619 Presence of unspecified artificial shoulder joint | CPT/HCPCS: 99214; G0463 ==

== ENCOUNTER 2017-01-10 15:29 | Inpatient (IN) | payer OTHER, MEDICARE ==
[2017-01-10] MEDS ORDERED: NORMAL SALINE 10 ML SYRINGE FLUSH IVP PRN ×4 (15:37→16:04)
--- NOTE | 2017-01-10 15:41 | EKG ---
[address] [address] Measurements Intervals [place] Rate: 71 P: 74 MA: 162 QRS: 48 QRSD: 93 T: 78 QT: 381 QTc: 404 Interpretive Statements SINUS RHYTHM Compared to ECG 11/08/2016 17:27:29 No significant changes Electronically Signed On 01-10-17 18:14:48 MDT by Donell Cardenas [email or web address]
[2017-01-10 15:46] LABS: BASOPHILS # (AUTO) 0.03 10*3/UL; BASOPHILS % (AUTO) 0.3 % (0-1); EOSINOPHILS # (AUTO) 0.51 10*3/UL; EOSINOPHILS % (AUTO) 4.3 % (0-8); HEMATOCRIT 43.4 % (42.0-52.0); HEMOGLOBIN 14.4 g/dL (14.0-18.0); LYMPHOCYTES # (AUTO) 1.75 10*3/uL; MEAN CORPUSCULAR HGB CONC 33.2 g/dL (33-37); MEAN CORPUSCULAR VOLUME 90.4 FL (80-90); MONOCYTES # (AUTO) 1.06 10*3/UL (0.3-0.8); NEUTROPHILS # (AUTO) 8.46 10*3/UL; NEUTROPHILS % (AUTO) 71.3 % (50-80)
[2017-01-10] MEDS ORDERED: LIDOCAINE W/ SODIUM BICARB 0.5 ML SYR SUBD PRN ×2 (15:46→16:04)
[2017-01-10 15:52] LABS: PLATELET MORPHOLOGY COMMENT NORMAL MORPHOLOGY (NORM); RBC MORPHOLOGY COMMENT NORMAL MORPHOLOGY (NORM); WBC MORPHOLOGY COMMENT NORMAL MORPHOLOGY (NORM)
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
[2017-01-10] MEDS ORDERED: methylPREDNISolone 125 MG/2 ML VIAL IVP SCH (16:00)
[2017-01-10] MEDS ORDERED: CITALOPRAM HYDROBROMIDE ORAL SCH (16:00)
[2017-01-10] MEDS ORDERED: cefTRIAXone Inj 2 GM in Sodium Chloride 0.9% 100 ML IV SCH ×3 (16:00→17:00)
[2017-01-10] MEDS ORDERED: Sodium Chloride 0.9% 1,000 ML PRIMARY IV ONE (16:04)
[2017-01-10 16:06] LABS: BUN/CREATININE RATIO 18.75 (6-20); C-REACTIVE PROTEIN 2.7 mg/dL (0.0-0.9); MAGNESIUM 2.2 mg/dL (1.6-2.4); SERUM ALBUMIN 3.8 g/dL (3.5-4.8)
[2017-01-10] MEDS ORDERED: Sodium Chloride 0.9% 1,000 ML ONE (16:13)
[2017-01-10 16:21] LABS: VENOUS PH 7.36 (7.32-7.42)
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
[2017-01-10] MEDS: Sodium Chloride 0.9% 1,000 ML PRIMARY IV ONE ×2 (16:54→17:13)
[2017-01-10] MEDS ORDERED: IPRATROPIUM/ALBUTEROL SULFATE 3 ML NEB NEB SCH (19:00)
[2017-01-10] MEDS: IPRATROPIUM/ALBUTEROL SULFATE 3 ML NEB NEB SCH (19:02)
[2017-01-10] MEDS: AZITHROMYCIN 250 MG TABLET PO SCH (19:52)
[2017-01-10] MEDS: GUAIFENESIN/CODEINE SYRUP 100 MG/ 10 MG/ 5 ML UD CUP PO PRN (20:11)
[2017-01-10] MEDS: Sodium Chloride 0.9% 1,000 ML IV SCH (20:11)
[2017-01-10] MEDS ORDERED: FUROSEMIDE 40 MG TABLET PO SCH (21:00)
[2017-01-10] MEDS: methylPREDNISolone 125 MG/2 ML VIAL IVP SCH (22:00)
[2017-01-11] MEDS: methylPREDNISolone 125 MG/2 ML VIAL IVP SCH ×4 (04:54→21:50)
[2017-01-11] MEDS: GUAIFENESIN/CODEINE SYRUP 100 MG/ 10 MG/ 5 ML UD CUP PO PRN ×2 (04:55→20:46)
[2017-01-11 05:47] LABS: BASOPHILS # (AUTO) 0 10*3/UL; BASOPHILS % (AUTO) 0 % (0-1); EOSINOPHILS # (AUTO) 0.01 10*3/UL; EOSINOPHILS % (AUTO) 0.1 % (0-8); HEMATOCRIT 43.5 % (42.0-52.0); HEMOGLOBIN 14.4 g/dL (14.0-18.0); LYMPHOCYTES # (AUTO) 0.66 10*3/uL; MEAN CORPUSCULAR HGB CONC 33.1 g/dL (33-37); MEAN CORPUSCULAR VOLUME 90.6 FL (80-90); MEAN PLATELET VOLUME 11.4 FL (7.4-12.2); MONOCYTES # (AUTO) 0.05 10*3/UL (0.3-0.8); MONOCYTES % (AUTO) 0.6 % (5-15); NEUTROPHILS # (AUTO) 8.22 10*3/UL; NEUTROPHILS % (AUTO) 91.8 % (50-80)
[2017-01-11 05:57] LABS: BUN/CREATININE RATIO 19.28 (6-20); CALCIUM 9.1 mg/dL (8.7-10.7)
[2017-01-11 06:00] LABS: PLATELET MORPHOLOGY COMMENT NORMAL MORPHOLOGY (NORM); RBC MORPHOLOGY COMMENT NORMAL MORPHOLOGY (NORM); WBC MORPHOLOGY COMMENT NORMAL MORPHOLOGY (NORM)
[2017-01-11] MEDS: IPRATROPIUM/ALBUTEROL SULFATE 3 ML NEB NEB SCH ×4 (06:56→19:46)
[2017-01-11] MEDS ORDERED: FUROSEMIDE 40 MG TABLET PO SCH (07:00)
[2017-01-11] MEDS: ENOXAPARIN SODIUM 40 MG/0.4 ML SYRINGE SUBCUT SCH (08:37)
[2017-01-11] MEDS: CITALOPRAM 20 MG TABLET PO SCH (08:38)
[2017-01-11] MEDS: LOSARTAN 50 MG TABLET PO SCH (08:38)
[2017-01-11] MEDS: ASPIRIN 325 MG EC TABLET PO SCH (08:39)
[2017-01-11] MEDS: POTASSIUM CHLORIDE 20 MEQ TAB PO SCH (08:39)
[2017-01-11] MEDS ORDERED: POTASSIUM CHLORIDE 20 MEQ TAB PO SCH (09:00)
[2017-01-11] MEDS ORDERED: ENOXAPARIN SODIUM 40 MG/0.4 ML SYRINGE SUBCUT SCH (09:00)
[2017-01-11] MEDS ORDERED: ASPIRIN PO SCH (09:00)
[2017-01-11] MEDS ORDERED: Non-Formulary Drug (Losartan Potassium [Losartan Potassium] 1 TAB) PO SCH (09:00)
[2017-01-11] MEDS ORDERED: CALCIUM CARBONATE PO SCH (09:00)
[2017-01-11] MEDS ORDERED: MAG PO SCH (09:00)
--- NOTE | 2017-01-11 09:32 | DI ---
CT CHEST W/O CONTRAST,01/11/2017 7:00 AM: Clinical History: COPD. Previous Exam: November 08, 2016 Findings: Multiple helically acquired CT images are obtained through the chest without contrast, and demonstrat e mild diffuse emphysematous changes. There are a few calcified granulomas. There is some stable subsegmental atelectasis in the right lung base. There is no mediastinal lymphadenopathy. The upper abdomen is unremarkable. Diffuse degenerative changes of the spine are seen. Impression: No significant change from the prior exam.
[2017-01-11] MEDS ORDERED: HYDROcodone-APAP 5 MG -325 MG TABLET PO ONE (10:47)
[2017-01-11] MEDS ORDERED: ACETAMINOPHEN 325 MG TABLET PO PRN (11:11)
[2017-01-11] MEDS: BENZONATATE 200 MG CAPSULE PO SCH ×3 (11:25→21:50)
[2017-01-11] MEDS: Sodium Chloride 0.9% 1,000 ML IV SCH (11:26)
--- NOTE | 2017-01-11 11:47 | PDOC(PROG) ---
Interval History: Patient is doing a little better today he started to expectorate with his cough pain that he has is reproducible and is costochondritis and his right ribs when pushed on from excessive coughing. I told the patient does not have pneumonia Objective : Data - Labs CBC and BMP: 01/11/17 04:59 01/11/17 04:59 Labs - Last 24 Hours: Laboratory Results 01/10/17 01/10/17 01/10/17 Range/Units 16:14 16:18 21:51 WBC (4.8-10.8) 10^3/uL RBC (4.70-6.10) 10^6/uL Hgb (14.0-18.0) g/dL Hct (42.0-52.0) % MCV (80-90) FL MCH (27-31) PG MCHC (33-37) g/dL RDW Std Deviation (39-50) fL RDW Coeff of Nelda (11.5-14.5) % Plt Count (140-350) 10*3/uL MPV (7.4-12.2) FL Immature Gran % (Auto) (0-5) % Neut % (Auto) (50-80) % Lymph % (Auto) (10-50) % [place] % (Auto) (5-15) % Eos % (Auto) (0-8) % Baso % (Auto) (0-1) % Immature Gran # (Auto) 10*3/UL Neut # (Auto) 10*3/UL Lymph # (Auto) 10*3/uL [place] # (Auto) (0.3-0.8) 10*3/UL Eos # (Auto) 10*3/UL Baso # (Auto) 10*3/UL WBC Morphology Comment (NORM) Plt Morphology Comment (NORM) RBC Morph Comment (NORM) VBG pH 7.36 (7.32-7.42) VBG pCO2 43 L (45-55) mmHg VBG HCO3 24 (22-26) mmol/L VBG Base Excess -1 (-2-2) MMOL/L Sodium (135-145) meq/L Potassium (3.8-5.2) meq/L Chloride (98-112) meq/L Carbon Dioxide (23-33) meq/L Anion Gap (5-20) BUN (7-22) mg/dL Creatinine (0.70-1.50) mg/dL Estimated GFR (>60 ml/min/1.73m(2)) BUN/Creatinine Ratio (6-20) Glucose (78-110) mg/dL Calculated Osmolality (267-292) mOsm/kg Calcium (8.7-10.7) mg/dL Troponin I 0.012 < 0.012 (< 0.040) ng/mL 01/11/17 Range/Units 04:59 WBC 8.95 (4.8-10.8) 10^3/uL RBC 4.80 (4.70-6.10) 10^6/uL Hgb 14.4 (14.0-18.0) g/dL Hct 43.5 (42.0-52.0) % MCV 90.6 H (80-90) FL MCH 30.0 (27-31) PG MCHC 33.1 (33-37) g/dL RDW Std Deviation 42.7 (39-50) fL RDW Coeff of Nelda 13.0 (11.5-14.5) % Plt Count 204 (140-350) 10*3/uL MPV 11.4 (7.4-12.2) FL Immature Gran % (Auto) 0.1 (0-5) % Neut % (Auto) 91.8 H (50-80) % Lymph % (Auto) 7.4 L (10-50) % [place] % (Auto) 0.6 L (5-15) % Eos % (Auto) 0.1 (0-8) % Baso % (Auto) 0 (0-1) % Immature Gran # (Auto) 0.01 10*3/UL Neut # (Auto) 8.22 10*3/UL Lymph # (Auto) 0.66 10*3/uL [place] # (Auto) 0.05 L (0.3-0.8) 10*3/UL Eos # (Auto) 0.01 10*3/UL Baso # (Auto) 0 10*3/UL WBC Morphology Comment Normal morphology (NORM) Plt Morphology Comment Normal morphology (NORM) RBC Morph Comment Normal morphology (NORM) VBG pH (7.32-7.42) VBG pCO2 (45-55) mmHg VBG HCO3 (22-26) mmol/L VBG Base Excess (-2-2) MMOL/L Sodium 140 (135-145) meq/L Potassium 4.6 (3.8-5.2) meq/L Chloride 111 (98-112) meq/L Carbon Dioxide 19 L (23-33) meq/L Anion Gap 10 (5-20) BUN 27 H (7-22) mg/dL Creatinine 1.4 (0.70-1.50) mg/dL Estimated GFR 50 (>60 ml/min/1.73m(2)) BUN/Creatinine Ratio 19.28 (6-20) Glucose 152 H (78-110) mg/dL Calculated Osmolality 297.0 H (267-292) mOsm/kg Calcium 9.1 (8.7-10.7) mg/dL Troponin I (< 0.040) ng/mL Objective : Exam - General General Appearance: No Acute Distress, Cooperative - Respiratory Respiratory Exam: Decreased Breath Sounds - Cardiovascular Cardiovascular Exam: RRR - GI/Abdominal GI/Abdominal Exam: Non Tender, Non Distended, Soft Assessment and Plan - Patient Problems (1) COPD (chronic obstructive pulmonary disease) Current Visit: No Status: Acute Comment: No pneumonia on CT without contrast. Patient has costochondritis on the right side under his right pectoral muscle. He is also allergic to narcotics we will begin him a Tylenol for pain and some Tessalon Perles for cough to totally not suppress his coughing which is necessary to expectorate. I told the nursing to take away his acetaminophen allergy which is incorrect. The antibiotics and steroids and inhalers (2) Chest pain Current Visit: No Status: Acute Comment: Costochondritis troponins are negative pain is reproducible (3) Acute kidney injury Current Visit: Yes Status: Acute Comment: Secondary dehydration is improved today I told the patient to stop taking ibuprofen also held his Lasix until his kidney function is back to normal he agrees and understands discussed with nursing
[2017-01-11] MEDS ORDERED: cefTRIAXone Inj 2 GM in Sodium Chloride 0.9% 100 ML IV SCH (16:00)
[2017-01-11] MEDS ORDERED: WATER ONE (16:28)
[2017-01-11] MEDS ORDERED: [UNRECOGNIZED DRUG - OTHER] ONE (16:28)
[2017-01-11] MEDS: cefTRIAXone Inj 2 GM in Sodium Chloride 0.9% 100 ML IV SCH (17:01)
[2017-01-11] MEDS: AZITHROMYCIN 250 MG TABLET PO SCH (17:44)
[2017-01-11] MEDS: FLUTICASONE/SALMETEROL 250/50 UD INHALER INH SCH (19:47)
[2017-01-12] MEDS: Sodium Chloride 0.9% 1,000 ML IV SCH ×2 (01:17→15:04)
[2017-01-12] MEDS ORDERED: PANTOPRAZOLE 40 MG TABLET PO ONE (01:21)
[2017-01-12] MEDS: methylPREDNISolone 125 MG/2 ML VIAL IVP SCH ×2 (05:00→11:00)
[2017-01-12 06:09] LABS: BUN/CREATININE RATIO 18.66 (6-20); CALCIUM 8.8 mg/dL (8.7-10.7); SERUM ALBUMIN 3.5 g/dL (3.5-4.8)
[2017-01-12] MEDS: IPRATROPIUM/ALBUTEROL SULFATE 3 ML NEB NEB SCH ×4 (07:06→18:41)
[2017-01-12] MEDS: FLUTICASONE/SALMETEROL 250/50 UD INHALER INH SCH ×2 (07:08→18:41)
[2017-01-12] MEDS: ASPIRIN 325 MG EC TABLET PO SCH (09:24)
[2017-01-12] MEDS: LOSARTAN 50 MG TABLET PO SCH (09:24)
[2017-01-12] MEDS: CITALOPRAM 20 MG TABLET PO SCH (09:24)
[2017-01-12] MEDS: PANTOPRAZOLE 40 MG TABLET PO SCH ×2 (09:24→20:22)
[2017-01-12] MEDS: BENZONATATE 200 MG CAPSULE PO SCH ×3 (09:24→20:21)
[2017-01-12] MEDS: ENOXAPARIN SODIUM 40 MG/0.4 ML SYRINGE SUBCUT SCH (09:24)
[2017-01-12] MEDS: POTASSIUM CHLORIDE 20 MEQ TAB PO SCH (09:25)
[2017-01-12] MEDS: NORMAL SALINE 10 ML SYRINGE FLUSH IVP PRN (11:01)
--- NOTE | 2017-01-12 12:32 | PDOC(PROG) ---
Date and Time of Service: 01/12/2017, 12:30 Interval History: No complaints of chest pain. Cough is persistent, but not overly productive. Shortness of breath is probably close to baseline. Overall, patient feels like he needs at least another day. This is hospital stay #5 since February 2016. He is not losing weight. Still has good appetite. Objective : Data - Labs CBC and BMP: 01/11/17 04:59 01/12/17 05:00 Labs - Last 24 Hours: Laboratory Results 01/12/17 Range/Units 05:00 Sodium 139 (135-145) meq/L Potassium 4.6 (3.8-5.2) meq/L Chloride 110 (98-112) meq/L Carbon Dioxide 19 L (23-33) meq/L Anion Gap 10 (5-20) BUN 28 H (7-22) mg/dL Creatinine 1.5 (0.70-1.50) mg/dL Estimated GFR 46 (>60 ml/min/1.73m(2)) BUN/Creatinine Ratio 18.66 (6-20) Glucose 161 H (78-110) mg/dL Calculated Osmolality 296.0 H (267-292) mOsm/kg Calcium 8.8 (8.7-10.7) mg/dL Total Bilirubin 0.2 L (0.3-1.2) mg/dL AST 23 (21-57) IU/L ALT 35 (21-72) IU/L Alkaline Phosphatase 64 (38-126) IU/L Total Protein 6.3 (6.1-8.0) g/dL Albumin 3.5 (3.5-4.8) g/dL Globulin 2.8 (2.50-4.10) g/dL Albumin/Globulin Ratio 1.20 L (1.3-2.0) mg/g Objective : Exam - General General Appearance: No Acute Distress, Cooperative Additional General Exam Details: Vital Signs - Last Taken Temperature 97.4 F 01/12/17 08:08 Pulse Rate 95 01/12/17 08:08 Respiratory Rate 20 01/12/17 08:08 Blood Pressure 111/62 01/12/17 08:08 Pulse Ox 93 01/12/17 08:08 On 3 L per nasal cannula. - Eye Eye Exam: No Scleral Icterus - ENT ENT Exam: Mucous Membranes Moist - Respiratory Respiratory Exam: Breathing Non Labored, Decreased Breath Sounds - Cardiovascular Cardiovascular Exam: RRR, No Murmur, No Clicks, No Gallops, No Rubs, No JVD - GI/Abdominal GI/Abdominal Exam: Normal Bowel Sounds, Non Tender, Non Distended, Soft - Extremities Extremities Exam: No Clubbing Present, No Cyanosis Present, +1 Edema - Neurological Neurological Exam: Alert, Oriented x 3, No Facial Droop, Speech Intact / Clear, Moves All Extremities Equally Assessment and Plan - Patient Problems (1) COPD exacerbation Current Visit: Yes Status: Acute (2) GERD (gastroesophageal reflux disease) Status: Chronic Qualifiers: Esophagitis presence: esophagitis presence not specified Qualifier Code (s): (K21.9) Gastro-esophageal reflux disease without esophagitis (3) Hyperlipidemia Current Visit: Yes Status: Chronic Qualifiers: Hyperlipidemia type: unspecified Qualifier Code(s): (E78.5) Hyperlipidemia, unspecified (4) Hypertension Current Visit: Yes Status: Chronic Qualifiers: Hypertension type: essential hypertension Qualified Description: Essential hypertension Qualifier Code(s): (I10) Essential (primary) hypertension (5) CKD (chronic kidney disease), stage III Current Visit: Yes Status: Acute (6) Obstructive sleep apnea Current Visit: Yes Status: Acute - Assessment / Plan Additional Assessment/Plan Details: Continue Rocephin and Zithromax. May try to go to oral antibiotics tomorrow. Steroids to by mouth steroids today. If this works well, taper over the next 2 weeks would be reasonable. I would like to get an echocardiogram. Patient states a stress test done here 2 years ago that was negative and I'll review that record. I suspect right heart failure from COPD and emphysema. 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 Continue oxygen and breathing therapies.
[2017-01-12] MEDS ORDERED: predniSONE Tab 20 MG TAB PO ONE (12:45)
[2017-01-12] MEDS ORDERED: AZITHROMYCIN 250 MG TABLET PO SCH ×2 (15:48)
[2017-01-12] MEDS: cefTRIAXone Inj 2 GM in Sodium Chloride 0.9% 100 ML IV SCH (16:26)
[2017-01-12] MEDS: AZITHROMYCIN 250 MG TABLET PO SCH (17:05)
[2017-01-12] MEDS: GUAIFENESIN/CODEINE SYRUP 100 MG/ 10 MG/ 5 ML UD CUP PO PRN (18:17)
[2017-01-13] MEDS: IPRATROPIUM/ALBUTEROL SULFATE 3 ML NEB NEB SCH ×4 (07:40→18:56)
[2017-01-13] MEDS: FLUTICASONE/SALMETEROL 250/50 UD INHALER INH SCH ×2 (07:42→18:58)
[2017-01-13] MEDS: CITALOPRAM 20 MG TABLET PO SCH (09:08)
[2017-01-13] MEDS: ENOXAPARIN SODIUM 40 MG/0.4 ML SYRINGE SUBCUT SCH (09:08)
[2017-01-13] MEDS: LOSARTAN 50 MG TABLET PO SCH (09:08)
[2017-01-13] MEDS: predniSONE Tab 20 MG TAB PO SCH (09:08)
[2017-01-13] MEDS: ASPIRIN 325 MG EC TABLET PO SCH (09:09)
[2017-01-13] MEDS: POTASSIUM CHLORIDE 20 MEQ TAB PO SCH (09:09)
[2017-01-13] MEDS: PANTOPRAZOLE 40 MG TABLET PO SCH ×2 (09:09→21:35)
[2017-01-13] MEDS: BENZONATATE 200 MG CAPSULE PO SCH ×3 (09:09→21:34)
[2017-01-13] MEDS ORDERED: FUROSEMIDE 40 MG TABLET PO ONE (15:08)
--- NOTE | 2017-01-13 15:08 | PDOC(PROG) ---
Date and Time of Service: 01/13/2017, 1503 Interval History: Shortness breath still feels about the same. Coughing. Overall states he just doesn't feel very good. His weight is notably up. No nausea or vomiting or abdominal pain. Objective : Data - Labs CBC and BMP: 01/11/17 04:59 01/12/17 05:00 Objective : Exam - General General Appearance: No Acute Distress, Cooperative Additional General Exam Details: Vital Signs - Last Taken Temperature 97.5 F 01/13/17 13:00 Pulse Rate 86 01/13/17 13:00 Respiratory Rate 20 01/13/17 13:00 Blood Pressure 128/71 01/13/17 13:00 Pulse Ox 99 01/13/17 13:00 Still on 3 L per nasal cannula oxygen - Eye Eye Exam: No Scleral Icterus - ENT ENT Exam: Mucous Membranes Moist - Respiratory Respiratory Exam: Breathing Non Labored, Decreased Breath Sounds (Improved only slightly. Still coarse, occasional wheezes), Wheezes, Coarse Breath Sounds - Cardiovascular Cardiovascular Exam: RRR, No Murmur, No Clicks, No Gallops, No Rubs, No JVD - GI/Abdominal GI/Abdominal Exam: Normal Bowel Sounds, Non Tender, Non Distended, Soft - Extremities Extremities Exam: No Cyanosis Present, +2 Edema - Neurological Neurological Exam: Alert, Oriented x 3, No Facial Droop, Speech Intact / Clear, Moves All Extremities Equally - Psychiatric Psychiatric Exam: Normal Affect, Normal Mood Assessment and Plan - Patient Problems (1) COPD exacerbation Current Visit: Yes Status: Acute (2) GERD (gastroesophageal reflux disease) Status: Chronic Qualifiers: Esophagitis presence: esophagitis presence not specified Qualifier Code (s): (K21.9) Gastro-esophageal reflux disease without esophagitis (3) Hyperlipidemia Current Visit: Yes Status: Chronic Qualifiers: Hyperlipidemia type: unspecified Qualifier Code(s): (E78.5) Hyperlipidemia, unspecified (4) Hypertension Current Visit: Yes Status: Chronic Qualifiers: Hypertension type: essential hypertension Qualified Description: Essential hypertension Qualifier Code(s): (I10) Essential (primary) hypertension (5) CKD (chronic kidney disease), stage III Current Visit: Yes Status: Acute (6) Obstructive sleep apnea Current Visit: Yes Status: Acute - Assessment / Plan Additional Assessment/Plan Details: Continue with breathing therapies and oxygen. Continue IV antibiotics. Echocardiogram today. I think the patient overall probably needs a 10 day course of antibiotics. He may very well benefit from daily Zithromax to help prevent further COPD exacerbations. I suspect overall, he has significant right congestive heart failure and right- sided heart failure/cor pulmonale. It could be end-stage. Trial GARCIA maya and see if that helps. I may add Lasix back to 40 mg a day.
[2017-01-13] MEDS: cefTRIAXone Inj 2 GM in Sodium Chloride 0.9% 100 ML IV SCH (16:36)
[2017-01-13] MEDS: AZITHROMYCIN 250 MG TABLET PO SCH (17:30)
[2017-01-13] MEDS: GUAIFENESIN/CODEINE SYRUP 100 MG/ 10 MG/ 5 ML UD CUP PO PRN (19:19)
[2017-01-14 04:41] LABS: HEMOGLOBIN 14.5 g/dL (14.0-18.0); MEAN CORPUSCULAR VOLUME 90.9 FL (80-90); MEAN PLATELET VOLUME 11.2 FL (7.4-12.2); RED BLOOD COUNT 4.84 10^6/uL (4.70-6.10)
[2017-01-14 04:49] LABS: BUN/CREATININE RATIO 20.66 (6-20); CALCIUM 8.7 mg/dL (8.7-10.7)
[2017-01-14 04:53] LABS: HEMOGLOBIN A1C 6.35 % (4.2-6.0)
[2017-01-14 05:06] LABS: BAND NEUTROPHILS % 1 % (0-10); BASOPHILS % (MANUAL) 0 % (0-1); EOSINOPHILS % (MANUAL) 0 % (0-8); LYMPHOCYTES % (MANUAL) 12 % (10-50); MONOCYTES % (MANUAL) 5 % (0-12); NEUTROPHILS % (MANUAL) 82 % (50-80); PLATELET MORPHOLOGY COMMENT NORMAL MORPHOLOGY (NORM); RBC MORPHOLOGY COMMENT NORMAL MORPHOLOGY (NORM); WBC MORPHOLOGY COMMENT NORMAL MORPHOLOGY (NORM)
[2017-01-14] MEDS: IPRATROPIUM/ALBUTEROL SULFATE 3 ML NEB NEB SCH ×4 (06:50→19:00)
[2017-01-14] MEDS: FLUTICASONE/SALMETEROL 250/50 UD INHALER INH SCH ×2 (06:50→19:01)
[2017-01-14] MEDS: FUROSEMIDE 40 MG TABLET PO SCH (07:03)
[2017-01-14] MEDS: LOSARTAN 50 MG TABLET PO SCH (09:02)
[2017-01-14] MEDS: ENOXAPARIN SODIUM 40 MG/0.4 ML SYRINGE SUBCUT SCH (09:02)
[2017-01-14] MEDS: BENZONATATE 200 MG CAPSULE PO SCH ×3 (09:03→20:31)
[2017-01-14] MEDS: predniSONE Tab 20 MG TAB PO SCH (09:03)
[2017-01-14] MEDS: ASPIRIN 325 MG EC TABLET PO SCH (09:03)
[2017-01-14] MEDS: PANTOPRAZOLE 40 MG TABLET PO SCH ×2 (09:03→20:30)
[2017-01-14] MEDS: CITALOPRAM 20 MG TABLET PO SCH (09:03)
[2017-01-14] MEDS: POTASSIUM CHLORIDE 20 MEQ TAB PO SCH (09:03)
[2017-01-14] MEDS: NORMAL SALINE 10 ML SYRINGE FLUSH IVP PRN (09:04)
--- NOTE | 2017-01-14 16:29 | PDOC(PROG) ---
Date and Time of Service: 01/14/2017, 1625 Interval History: Patient seen and examined earlier. No complaints of chest pain. Cough is persistent and woke him up at 3:00 with a cough paroxysm that has now resolved. No nausea or vomiting. His weight is up, but he did diurese a little better yesterday and his input and output were more matched. Objective : Data - Labs CBC and BMP: 01/14/17 04:09 01/14/17 04:09 Labs - Last 24 Hours: Laboratory Results 01/14/17 Range/Units 04:09 WBC 19.83 H (4.8-10.8) 10^3/uL RBC 4.84 (4.70-6.10) 10^6/uL Hgb 14.5 (14.0-18.0) g/dL Hct 44.0 (42.0-52.0) % MCV 90.9 H (80-90) FL MCH 30.0 (27-31) PG MCHC 33.0 (33-37) g/dL RDW Std Deviation 45.2 (39-50) fL RDW Coeff of Nelda 13.8 (11.5-14.5) % Plt Count 216 (140-350) 10*3/uL MPV 11.2 (7.4-12.2) FL Neutrophils % (Manual) 82 H (50-80) % Band Neutrophils % 1 (0-10) % Lymphocytes % (Manual) 12 (10-50) % Monocytes % (Manual) 5 (0-12) % Eosinophils % (Manual) 0 (0-8) % Basophils % (Manual) 0 (0-1) % Metamyelocytes % Not Reportable Myelocytes % Not Reportable Promyelocytes % Not Reportable Blast Cells Not Reportable WBC Morphology Comment Normal morphology (NORM) Plt Morphology Comment Normal morphology (NORM) RBC Morph Comment Normal morphology (NORM) Sodium 141 (135-145) meq/L Potassium 4.2 (3.8-5.2) meq/L Chloride 111 (98-112) meq/L Carbon Dioxide 22 L (23-33) meq/L Anion Gap 8 (5-20) BUN 31 H (7-22) mg/dL Creatinine 1.5 (0.70-1.50) mg/dL Estimated GFR 46 (>60 ml/min/1.73m(2)) BUN/Creatinine Ratio 20.66 H (6-20) Glucose 91 (78-110) mg/dL Mean Blood Glucose 125.455 mg/dL Hemoglobin A1c 6.35 H (4.2-6.0) % Calculated Osmolality 298.0 H (267-292) mOsm/kg Calcium 8.7 (8.7-10.7) mg/dL NT-Pro-B Natriuret Pep 2050 H (0-125) PG/ML Objective : Exam - General General Appearance: No Acute Distress, Cooperative Additional General Exam Details: Vital Signs - Last Taken Temperature 97.4 F 01/14/17 16:08 Pulse Rate 74 01/14/17 16:08 Respiratory Rate 22 01/14/17 16:08 Blood Pressure 129/74 01/14/17 16:08 Pulse Ox 94 01/14/17 16:08 - Eye Eye Exam: No Scleral Icterus - ENT ENT Exam: Mucous Membranes Moist - Respiratory Respiratory Exam: Breathing Non Labored, Decreased Breath Sounds, Wheezes, Coarse Breath Sounds - Cardiovascular Cardiovascular Exam: RRR, No Murmur, No Clicks, No Gallops, No Rubs, No JVD - GI/Abdominal GI/Abdominal Exam: Normal Bowel Sounds, Non Tender, Non Distended, Soft - Extremities Extremities Exam: No Cyanosis Present, Clubbing Present, +2 Edema - Neurological Neurological Exam: Alert, Oriented x 3, No Facial Droop, Speech Intact / Clear, Moves All Extremities Equally Assessment and Plan - Patient Problems (1) COPD exacerbation Current Visit: Yes Status: Acute (2) Cor pulmonale Current Visit: Yes Status: Acute (3) GERD (gastroesophageal reflux disease) Status: Chronic Qualifiers: Esophagitis presence: esophagitis presence not specified Qualifier Code (s): (K21.9) Gastro-esophageal reflux disease without esophagitis (4) Hyperlipidemia Current Visit: Yes Status: Chronic Qualifiers: Hyperlipidemia type: unspecified Qualifier Code(s): (E78.5) Hyperlipidemia, unspecified (5) Hypertension Current Visit: Yes Status: Chronic Qualifiers: Hypertension type: essential hypertension Qualified Description: Essential hypertension Qualifier Code(s): (I10) Essential (primary) hypertension (6) CKD (chronic kidney disease), stage III Current Visit: Yes Status: Acute (7) Obstructive sleep apnea Current Visit: Yes Status: Acute - Assessment / Plan Additional Assessment/Plan Details: I think overall the patient has acute on chronic cor pulmonale. I would like to see how he diuresis on Lasix over the next 24 hours to make any further decisions regarding discharge. Check another basic metabolic panel the morning. Continue steroids and antibiotics for COPD exacerbation. Has steroid-induced hyperglycemia, and may very well be on his way to developing diabetes. The big decision for him will be whether or not we continue Zithromax as an outpatient to help prevent further acute COPD exacerbations. This is all complicated by chronic kidney disease that may be getting a little worse.
[2017-01-14] MEDS: AZITHROMYCIN 250 MG TABLET PO SCH (17:24)
[2017-01-14] MEDS: cefTRIAXone Inj 2 GM in Sodium Chloride 0.9% 100 ML IV SCH (17:24)
[2017-01-15 05:23] LABS: BUN/CREATININE RATIO 21.25 (6-20); CALCIUM 8.6 mg/dL (8.7-10.7)
[2017-01-15] MEDS: IPRATROPIUM/ALBUTEROL SULFATE 3 ML NEB NEB SCH ×2 (07:02→10:35)
[2017-01-15] MEDS: FUROSEMIDE 40 MG TABLET PO SCH (07:04)
[2017-01-15] MEDS: FLUTICASONE/SALMETEROL 250/50 UD INHALER INH SCH (07:06)
[2017-01-15 07:20] VITALS: RESP 18
[2017-01-15] MEDS: LOSARTAN 50 MG TABLET PO SCH (08:52)
[2017-01-15] MEDS: CITALOPRAM 20 MG TABLET PO SCH (08:52)
[2017-01-15] MEDS: predniSONE Tab 20 MG TAB PO SCH (08:52)
[2017-01-15] MEDS: ENOXAPARIN SODIUM 40 MG/0.4 ML SYRINGE SUBCUT SCH (08:52)
[2017-01-15] MEDS: BENZONATATE 200 MG CAPSULE PO SCH (08:53)
[2017-01-15] MEDS: PANTOPRAZOLE 40 MG TABLET PO SCH (08:53)
[2017-01-15] MEDS: POTASSIUM CHLORIDE 20 MEQ TAB PO SCH (08:54)
[2017-01-15] MEDS: ASPIRIN 325 MG EC TABLET PO SCH (08:54)
[2017-01-15 10:53] VITALS: TEMP 97.9
[2017-01-15] MEDS ORDERED: AZITHROMYCIN 250 MG TABLET PO ONE (11:59)
[2017-01-15] MEDS ORDERED: LOSARTAN 50 MG TABLET PO SCH (12:00)
[2017-01-15] MEDS ORDERED: HEPARIN 5000 UNIT/1 ML SUBCUT SCH (12:00)
[2017-01-15] MEDS ORDERED: predniSONE Tab 20 MG TAB PO SCH (12:00)
--- NOTE | 2017-01-15 14:34 | DCSUMMARY ---
Hospitalization Summary Admit Date: 01/10/17 Discharge Date: 01/15/17 Primary Diagnosis:: COPD exacerbation Secondary Diagnosis:: Probable end-stage cor pulmonale Hospital Course: This is a very pleasant 72-year-old male that came in with shortness of breath and cough and symptoms consistent with COPD exacerbation. No pneumonia was noted. This is his fifth admission for either pneumonia or COPD exacerbation in the last 12 calendar months. He was placed on Rocephin and steroids and breathing therapies and has gradually improved, but has gained a significant amount of weight as well. It is been difficult to diurese him due to his kidney function and his creatinine typically will go up with increased doses of Lasix and he is on an angiotensin receptor hakeem as well. We did do an echocardiogram, but unfortunately was a technically limited study and did not reveal a lot about potential right sided heart failure. The patient is been on the weak side, and I think is taking this. He is willing to stay for swing bed which I think would be very appropriate to continue to do therapy, monitor kidney function, adjust diuretics and antihypertensive therapies, and improved breathing therapies for COPD and cor pulmonale. It could be that he has obesity hypoventilation syndrome as well. Other medical issues remained fairly stable through the hospital stay, but the culmination of this hospital stay is revealing continued pulmonary hypertension issues, chronic renal failure, COPD, and probable congestive heart failure. Today, the patient states that he's less short of breath than he has been, but still coughing quite a bit, and overall feels slightly better with a couple pounds diuresed. The patient does have stress hyperglycemia and his hemoglobin A1c is at 6.35, he is getting close to being diabetic. Assessment and Plan: 1. As per discharge assessments noted 2. Disposition: Patient will discharge to the swing bed 3. Condition on discharge, stable and improved. 4. Diet: regular diet 5. Activities: resume normal activities 6. Follow-Up: 1. Hospital service will continue to manage the patient's hospital care. 2. 7. Medications at the Time of Discharge: Home Medications Medication Instructions Recorded Confirmed Type Citalopram Hydrobromide [Celexa] 1 tab ORAL QAM #90 tab 05/10/16 01/10/17 Clinic Aspirin/Calcium Carbonate/Mag 325 mg PO DAILY #30 tablet 11/30/16 01/10/17 Rx [Aspir-Mox 325 mg Tablet] Furosemide [Lasix] 1 tab PO BID #60 tab 12/10/16 01/10/17 Clinic Potassium Chloride [Klor-Con M20] 1 tab PO DAILY #60 tab 12/10/16 01/10/17 Clinic Azithromycin [Zithromax] 250 mg PO DAILY tab 01/15/17 Rx Benzonatate [Tessalon Perle] 200 mg PO TID cap 01/15/17 Rx Furosemide [Lasix] 40 mg PO EVERY AM tab 01/15/17 Rx Losartan [Cozaar] 50 mg PO DAILY tab 01/15/17 Rx Pantoprazole Sodium [Protonix] 40 mg PO BID tab 01/15/17 Rx predniSONE Tab [Deltasone Tab] 40 mg PO DAILY tab 01/15/17 Rx 8. Time, care, counseling and coordination of care for this discharge is greater than 30 minutes. Exam - Vitals Vital Signs: Vital Signs Temperature 97.9 F Temperature Source Temporal Artery Scan Pulse Rate [Pulse Oximeter] 97 Pulse Rate [Apical] 80 Pulse Rate 65 Respiratory Rate 18 Blood Pressure [Right Arm] 117/83 Blood Pressure [Left Arm] 142/73 Pulse Ox 90 Oxygen Flow Rate 3 Oxygen Delivery Method Nasal Cannula Height 6 ft 2 in Weight 307 lb 3.2 oz - General General Appearance: POSITIVE: No Acute Distress, Cooperative - Eye Eye Exam: POSITIVE: No Scleral Icterus - Respiratory Respiratory Exam: POSITIVE: Breathing Non Labored, Normal to Percussion and Palpation, Coarse Breath Sounds - Cardiovascular Cardiovascular Exam: POSITIVE: RRR, No Murmur, No Clicks, No Gallops, No Rubs, No JVD - GI/Abdominal GI/Abdominal Exam: POSITIVE: Normal Bowel Sounds, Non Tender, Non Distended, Soft - Extremities Extremities Exam: POSITIVE: No Cyanosis Present, Clubbing Present, +2 Edema - Neurological Neurological Exam: POSITIVE: Alert, Oriented x 3, No Facial Droop, Speech Intact / Clear, Moves All Extremities Equally Data Perinent Studies: Laboratory Results 01/10/17 01/10/17 01/10/17 Range/Units 15:33 16:14 16:18 WBC 11.84 H (4.8-10.8) 10^3/uL RBC 4.80 (4.70-6.10) 10^6/uL Hgb 14.4 (14.0-18.0) g/dL Hct 43.4 (42.0-52.0) % MCV 90.4 H (80-90) FL MCH 30.0 (27-31) PG MCHC 33.2 (33-37) g/dL RDW Std Deviation 42.6 (39-50) fL RDW Coeff of Nelda 13.0 (11.5-14.5) % Plt Count 197 (140-350) 10*3/uL MPV 11.0 (7.4-12.2) FL Immature Gran % (Auto) 0.3 (0-5) % Neut % (Auto) 71.3 (50-80) % Lymph % (Auto) 14.8 (10-50) % [place] % (Auto) 9.0 (5-15) % Eos % (Auto) 4.3 (0-8) % Baso % (Auto) 0.3 (0-1) % Immature Gran # (Auto) 0.03 10*3/UL Neut # (Auto) 8.46 10*3/UL Lymph # (Auto) 1.75 10*3/uL [place] # (Auto) 1.06 H (0.3-0.8) 10*3/UL Eos # (Auto) 0.51 10*3/UL Baso # (Auto) 0.03 10*3/UL Neutrophils % (Manual) (50-80) % Band Neutrophils % (0-10) % Lymphocytes % (Manual) (10-50) % Monocytes % (Manual) (0-12) % Eosinophils % (Manual) (0-8) % Basophils % (Manual) (0-1) % Metamyelocytes % Myelocytes % Promyelocytes % Blast Cells WBC Morphology Comment Normal morphology (NORM) Plt Morphology Comment Normal morphology (NORM) RBC Morph Comment Normal morphology (NORM) VBG pH 7.36 (7.32-7.42) VBG pCO2 43 L (45-55) mmHg VBG HCO3 24 (22-26) mmol/L VBG Base Excess -1 (-2-2) MMOL/L Sodium 138 (135-145) meq/L Potassium 4.2 (3.8-5.2) meq/L Chloride 106 (98-112) meq/L Carbon Dioxide 23 (23-33) meq/L Anion Gap 9 (5-20) BUN 30 H (7-22) mg/dL Creatinine 1.6 H (0.70-1.50) mg/dL Estimated GFR 43 (>60 ml/min/1.73m(2)) BUN/Creatinine Ratio 18.75 (6-20) Glucose 99 (78-110) mg/dL Mean Blood Glucose mg/dL Hemoglobin A1c (4.2-6.0) % Calculated Osmolality 291.0 (267-292) mOsm/kg Lactic Acid 0.9 (0.70-2.10) MMOL/L Calcium 9.0 (8.7-10.7) mg/dL Magnesium 2.2 (1.6-2.4) mg/dL Total Bilirubin 0.4 (0.3-1.2) mg/dL AST 27 (21-57) IU/L ALT 37 (21-72) IU/L Alkaline Phosphatase 78 (38-126) IU/L Troponin I 0.012 0.012 (< 0.040) ng/mL C-Reactive Protein 2.7 H (0.0-0.9) mg/dL NT-Pro-B Natriuret Pep (0-125) PG/ML Total Protein 6.9 (6.1-8.0) g/dL Albumin 3.8 (3.5-4.8) g/dL Globulin 3.0 (2.50-4.10) g/dL Albumin/Globulin Ratio 1.20 L (1.3-2.0) mg/g 01/10/17 01/11/17 01/12/17 Range/Units 21:51 04:59 05:00 WBC 8.95 (4.8-10.8) 10^3/uL RBC 4.80 (4.70-6.10) 10^6/uL Hgb 14.4 (14.0-18.0) g/dL Hct 43.5 (42.0-52.0) % MCV 90.6 H (80-90) FL MCH 30.0 (27-31) PG MCHC 33.1 (33-37) g/dL RDW Std Deviation 42.7 (39-50) fL RDW Coeff of Nelda 13.0 (11.5-14.5) % Plt Count 204 (140-350) 10*3/uL MPV 11.4 (7.4-12.2) FL Immature Gran % (Auto) 0.1 (0-5) % Neut % (Auto) 91.8 H (50-80) % Lymph % (Auto) 7.4 L (10-50) % [place] % (Auto) 0.6 L (5-15) % Eos % (Auto) 0.1 (0-8) % Baso % (Auto) 0 (0-1) % Immature Gran # (Auto) 0.01 10*3/UL Neut # (Auto) 8.22 10*3/UL Lymph # (Auto) 0.66 10*3/uL [place] # (Auto) 0.05 L (0.3-0.8) 10*3/UL Eos # (Auto) 0.01 10*3/UL Baso # (Auto) 0 10*3/UL Neutrophils % (Manual) (50-80) % Band Neutrophils % (0-10) % Lymphocytes % (Manual) (10-50) % Monocytes % (Manual) (0-12) % Eosinophils % (Manual) (0-8) % Basophils % (Manual) (0-1) % Metamyelocytes % Myelocytes % Promyelocytes % Blast Cells WBC Morphology Comment Normal morphology (NORM) Plt Morphology Comment Normal morphology (NORM) RBC Morph Comment Normal morphology (NORM) VBG pH (7.32-7.42) VBG pCO2 (45-55) mmHg VBG HCO3 (22-26) mmol/L VBG Base Excess (-2-2) MMOL/L Sodium 140 139 (135-145) meq/L Potassium 4.6 4.6 (3.8-5.2) meq/L Chloride 111 110 (98-112) meq/L Carbon Dioxide 19 L 19 L (23-33) meq/L Anion Gap 10 10 (5-20) BUN 27 H 28 H (7-22) mg/dL Creatinine 1.4 1.5 (0.70-1.50) mg/dL Estimated GFR 50 46 (>60 ml/min/1.73m(2)) BUN/Creatinine Ratio 19.28 18.66 (6-20) Glucose 152 H 161 H (78-110) mg/dL Mean Blood Glucose mg/dL Hemoglobin A1c (4.2-6.0) % Calculated Osmolality 297.0 H 296.0 H (267-292) mOsm/kg Lactic Acid (0.70-2.10) MMOL/L Calcium 9.1 8.8 (8.7-10.7) mg/dL Magnesium (1.6-2.4) mg/dL Total Bilirubin 0.2 L (0.3-1.2) mg/dL AST 23 (21-57) IU/L ALT 35 (21-72) IU/L Alkaline Phosphatase 64 (38-126) IU/L Troponin I < 0.012 (< 0.040) ng/mL C-Reactive Protein (0.0-0.9) mg/dL NT-Pro-B Natriuret Pep (0-125) PG/ML Total Protein 6.3 (6.1-8.0) g/dL Albumin 3.5 (3.5-4.8) g/dL Globulin 2.8 (2.50-4.10) g/dL Albumin/Globulin Ratio 1.20 L (1.3-2.0) mg/g 01/14/17 01/15/17 Range/Units 04:09 04:27 WBC 19.83 H (4.8-10.8) 10^3/uL RBC 4.84 (4.70-6.10) 10^6/uL Hgb 14.5 (14.0-18.0) g/dL Hct 44.0 (42.0-52.0) % MCV 90.9 H (80-90) FL MCH 30.0 (27-31) PG MCHC 33.0 (33-37) g/dL RDW Std Deviation 45.2 (39-50) fL RDW Coeff of Nelda 13.8 (11.5-14.5) % Plt Count 216 (140-350) 10*3/uL MPV 11.2 (7.4-12.2) FL Immature Gran % (Auto) (0-5) % Neut % (Auto) (50-80) % Lymph % (Auto) (10-50) % [place] % (Auto) (5-15) % Eos % (Auto) (0-8) % Baso % (Auto) (0-1) % Immature Gran # (Auto) 10*3/UL Neut # (Auto) 10*3/UL Lymph # (Auto) 10*3/uL [place] # (Auto) (0.3-0.8) 10*3/UL Eos # (Auto) 10*3/UL Baso # (Auto) 10*3/UL Neutrophils % (Manual) 82 H (50-80) % Band Neutrophils % 1 (0-10) % Lymphocytes % (Manual) 12 (10-50) % Monocytes % (Manual) 5 (0-12) % Eosinophils % (Manual) 0 (0-8) % Basophils % (Manual) 0 (0-1) % Metamyelocytes % Not Reportable Myelocytes % Not Reportable Promyelocytes % Not Reportable Blast Cells Not Reportable WBC Morphology Comment Normal morphology (NORM) Plt Morphology Comment Normal morphology (NORM) RBC Morph Comment Normal morphology (NORM) VBG pH (7.32-7.42) VBG pCO2 (45-55) mmHg VBG HCO3 (22-26) mmol/L VBG Base Excess (-2-2) MMOL/L Sodium 141 139 (135-145) meq/L Potassium 4.2 4.6 (3.8-5.2) meq/L Chloride 111 109 (98-112) meq/L Carbon Dioxide 22 L 24 (23-33) meq/L Anion Gap 8 6 (5-20) BUN 31 H 34 H (7-22) mg/dL Creatinine 1.5 1.6 H (0.70-1.50) mg/dL Estimated GFR 46 43 (>60 ml/min/1.73m(2)) BUN/Creatinine Ratio 20.66 H 21.25 H (6-20) Glucose 91 115 H (78-110) mg/dL Mean Blood Glucose 125.455 mg/dL Hemoglobin A1c 6.35 H (4.2-6.0) % Calculated Osmolality 298.0 H 296.0 H (267-292) mOsm/kg Lactic Acid (0.70-2.10) MMOL/L Calcium 8.7 8.6 L (8.7-10.7) mg/dL Magnesium (1.6-2.4) mg/dL Total Bilirubin (0.3-1.2) mg/dL AST (21-57) IU/L ALT (21-72) IU/L Alkaline Phosphatase (38-126) IU/L Troponin I (< 0.040) ng/mL C-Reactive Protein (0.0-0.9) mg/dL NT-Pro-B Natriuret Pep 2050 H 1140 H (0-125) PG/ML Total Protein (6.1-8.0) g/dL Albumin (3.5-4.8) g/dL Globulin (2.50-4.10) g/dL Albumin/Globulin Ratio (1.3-2.0) mg/g Patient Problems - Patient Problem List (1) COPD exacerbation Status: Acute (2) Cor pulmonale Status: Acute (3) GERD (gastroesophageal reflux disease) Status: Chronic Qualifiers: Esophagitis presence: esophagitis presence not specified Qualifier Code (s): (K21.9) Gastro-esophageal reflux disease without esophagitis (4) Hyperlipidemia Status: Chronic Qualifiers: Hyperlipidemia type: unspecified Qualifier Code(s): (E78.5) Hyperlipidemia, unspecified (5) Hypertension Status: Chronic Qualifiers: Hypertension type: essential hypertension Qualified Description: Essential hypertension Qualifier Code(s): (I10) Essential (primary) hypertension (6) CKD (chronic kidney disease), stage III Status: Acute (7) Obstructive sleep apnea Status: Acute
[2017-01-16] MEDS ORDERED: AZITHROMYCIN 250 MG TABLET PO SCH (09:00)
== END 2017-01-15 14:21 | disposition swing bed (61) | DRG 190 ==
LOC: ER 15:29 → MED/SURG 15:49
PROVIDERS: ADMIT Internal Medicine; ATTEND Internal Medicine
DX: R07.81 Pleurodynia (principal); J44.1 Chronic obstructive pulmonary disease with (acute) exacerbation; I26.09 Other pulmonary embolism with acute cor pulmonale; K21.9 Gastro-esophageal reflux disease without esophagitis; E78.5 Hyperlipidemia, unspecified; I10 Essential (primary) hypertension; N18.3 Chronic kidney disease, stage 3 (moderate); G47.33 Obstructive sleep apnea (adult) (pediatric)
CPT/HCPCS: 36415; 71250; 80048; 80053; 82803; 83036; 83605; 83735; 83880; 84484; 85007; 85025; 86140; 87040; 93005; 93010; 93308; 94640; 94761; 99285; A4216; J0696; J1644; J1650; J7030; J7050; J7512; J7620

== ENCOUNTER 2017-01-15 14:25 | Inpatient (IN) | payer OTHER, MEDICARE ==
[2017-01-15] MEDS ORDERED: HEPARIN 5000 UNIT/1 ML SUBCUT SCH (14:45)
[2017-01-15] MEDS ORDERED: ALBUTEROL SULFATE 2.5 MG/3 ML NEB PRN (14:46)
[2017-01-15] MEDS: BENZONATATE 200 MG CAPSULE PO SCH ×2 (16:04→20:10)
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
[2017-01-15] MEDS: IPRATROPIUM/ALBUTEROL SULFATE 3 ML NEB NEB SCH (19:22)
[2017-01-15] MEDS: FLUTICASONE/SALMETEROL 250/50 UD INHALER INH SCH (19:24)
[2017-01-15] MEDS: HEPARIN 5000 UNIT/1 ML SUBCUT SCH (20:10)
[2017-01-15] MEDS: PANTOPRAZOLE 40 MG TABLET PO SCH (20:10)
[2017-01-16] MEDS: IPRATROPIUM/ALBUTEROL SULFATE 3 ML NEB NEB SCH ×4 (02:14→18:59)
[2017-01-16] MEDS: HEPARIN 5000 UNIT/1 ML SUBCUT SCH ×3 (03:57→20:24)
[2017-01-16 06:08] LABS: BUN/CREATININE RATIO 22.5 (6-20); CALCIUM 8.7 mg/dL (8.7-10.7)
[2017-01-16] MEDS: FUROSEMIDE 40 MG TABLET PO SCH (06:46)
[2017-01-16] MEDS: FLUTICASONE/SALMETEROL 250/50 UD INHALER INH SCH ×2 (07:31→19:00)
[2017-01-16] MEDS: BENZONATATE 200 MG CAPSULE PO SCH ×3 (08:59→20:24)
[2017-01-16] MEDS: AZITHROMYCIN 250 MG TABLET PO SCH (08:59)
[2017-01-16] MEDS: CITALOPRAM 20 MG TABLET PO SCH (09:00)
[2017-01-16] MEDS: PANTOPRAZOLE 40 MG TABLET PO SCH ×2 (09:00→20:24)
[2017-01-16] MEDS: ASPIRIN 325 MG EC TABLET PO SCH (09:00)
[2017-01-16] MEDS: LOSARTAN 50 MG TABLET PO SCH (09:00)
[2017-01-16] MEDS: predniSONE Tab 20 MG TAB PO SCH (09:00)
[2017-01-16] MEDS: POTASSIUM CHLORIDE 20 MEQ TAB PO SCH (09:00)
--- NOTE | 2017-01-16 10:46 | PTI REPORT ---
Thank you for the referral of Blayne Salgado. He was seen on 01/15/17 for a swingbed evaluation secondary to weakness and deconditioning. SUBJECTIVE: The patient is a 72-year-old male who presented to the hospital in the evening of January 10, 2017 due to an onset of chest pain. The patient was then admitted into the hospital where he has been an inpatient due to his chest pain and COPD and recently went swingbed. The patient states that during the last two years he has had five times where he has come to the hospital secondary to chest pain. The patient states that he does have a diagnosis of COPD and is on three liters of oxygen at home. The patient states that prior to admittance to the hospital the last month he has been taking a two a day diuretic due to swelling of the bilateral lower extremities. He stated that the diuretic helped with the fluid but has also affected his kidney function, which is another reason why he is here at the hospital. The patient lives here in [place] with a industrial eng who is responsible for most of the iADLs and cooking as well as driving. The patient state that he lives in a level home with two stairs going into the front door. Prior to admittance to the hospital the patient has not used an assistive device and denies any falls. 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 He said this was the second one on that side. The patient states that prior to admittance to the hospital he has been doing well with getting around as long as he goes shorter distances. He states that sometimes he does get short of breath. The patient states that since being admitted to the hospital his chest pain has improved and he states that the last few days he has been getting up and trying to walk the length of his room. PAST MEDICAL HISTORY: Past medical history can be found in the patient's medical record. OBJECTIVE FINDINGS: General observations: The patient is alert and oriented to setting upon PT arrival. The patient was sitting up in chair on three liters of oxygen. Strength: The patient demonstrated 5/5 bilateral lower extremity strength with manual muscle testing in seated position. Transfers: The patient was able to move from a seated to standing position independently and safely. Balance: The patient demonstrated fair initial standing balance. Ambulation: The patient was able to ambulate 150 feet around the nurse's station on three liters of oxygen with stand by assist x1 for safety as the patient is a little wobbly, especially as he got fatigued toward the end of the walk. Bed mobility: The patient was able to get into and out of bed safely. The patient was able to complete ASSESSMENT: Problem List: Decreased endurance Decreased activity tolerance Short-Term Goals: To be met by discharge from [facility]: Patient will be able to ambulate without an assistive device safely and independently for at least 200 feet. Patient will be able to go up and down a flight of stairs safely and independently without his oxygen saturation dropping below 90% as monitored by pulse oximeter while on three liters of oxygen. Patient will be able to tolerate 30 minutes of physical activity without complaints of chest pains and while maintaining oxygen saturation above 90% on three liters of oxygen. Long-Term Goals: To be met following discharge from [facility]: Patient may be recommended for outpatient therapy if deemed necessary upon discharge. TREATMENT PLAN: Patient will be seen B.I.D during the week and one time per day over the weekend as a swingbed patient to improve activity tolerance and endurance while monitoring oxygen saturation. We will instruct patient how to monitor oxygen saturation as well. INITIAL TREATMENT: Treatment today consisted of the swingbed evaluation. Once back in room, the patient sat edge of bed and his oxygen saturation was at 89% with a heart rate of 120 beats per minute. The patient sat edge of bed x2 minutes in order to bring his oxygen saturation up to 92% and his heart rate down to 100 beats per minute. The patient stated that he felt pretty good after resting and he did demonstrate good static seated balance. The patient was able to complete sit to stands x5 with his arms crossed over his shoulders. He was able to do so safely and required 15.6 seconds to complete activity. The patient's oxygen saturation was 92% following the activity. [facility]
--- NOTE | 2017-01-16 11:05 | OTI REPORT ---
Thank you for the referral of Blayne Salgado. He was seen on 01/15/17 for an occupational therapy swingbed evaluation secondary to weakness and deconditioning. SUBJECTIVE: The patient is a 72-year-old male. The patient was admitted to the hospital on January 10, 2017 secondary to chest pain and having difficulty breathing. The patient reports he also has COPD and reports heart and kidney issues. The patient reports being on three liters of oxygen at home. He is currently on three liters of oxygen while in the hospital. The patient lives at home with the help of one other person, a pre sales systems engineer. The patient is not currently driving. He receives some help with laundry; however, he does complete some of the laundry tasks himself. He receives help with cooking and cleaning and he also receives help with grocery shopping. The patient sleeps in an adjustable bed. He has a tub/shower combo and a shower chair available at home. No grab bars are present within the bathroom and he has a standard toilet at home. The patient has two steps to the entrance with no hand rails; however, the patient reports no concerns with this. The patient did have a left total shoulder surgery on November 29; however, he reports no pain at this time. PAST MEDICAL HISTORY: Past medical history can be found in the patient's medical record. OBJECTIVE FINDINGS: Pain: The patient reports a pain level of 0/10 on the verbal analog scale (0=no pain, 10=worst pain). Transfers: The patient is able to perform sit to stand transfers independently with stand by assistance for safety. The patient is able to complete the task without concern. Activities of daily living: The patient is independent with eating and grooming. The patient requires supervision with bathing and performing showering tasks while seated due to a reduction in activity tolerance. The patient is able to perform upper extremity dressing with mod independence. The patient is able to perform lower extremity dressing with minimal assistance. The patient is able to perform toileting and toilet transfers with supervision. The patient is able to perform tub/shower transfers with supervision. The patient is independent with comprehension expression, social interaction, and memory. Range of motion: Range of motion is 75% in bilateral upper extremities for shoulder flexion and abduction. Elbows, wrists, and hands are within functional limits. Strength: Right upper extremity demonstrates strength of 3+/5 for shoulder flexion and abduction. Strength is 4/5 for elbow flexion, wrist flexion/ extension, and customer experience intern strength. The left upper extremity demonstrates strength of 4/5 for shoulder, elbow, wrist, and hand. ASSESSMENT: Problem List: Decreased activity tolerance Decreased ability to perform ADLs due to limited activity tolerance Short-Term Goals: To be met by discharge from swingbed: Patient will understand and use energy conservation techniques upon discharge with minimal verbal cues. Patient will don and doff socks with use of adaptive equipment as needed with modified independence. Patient will complete entire ADL routine to include upper extremity and lower extremity dressing, grooming, toileting, and bathing with minimal rest breaks. Long-Term Goals: To be met following discharge from swingbed: Patient will return home to prior level of functioning with help as needed from his pre sales systems engineer. TREATMENT PLAN: Patient will be seen B.I.D during the week and one time per day over the weekend as a swingbed patient to address the above goals and objectives. INITIAL TREATMENT: Treatment today consisted of the swingbed evaluation. The patient did complete activity x3-4 minutes before needing a rest break. When oxygen was tested it was at 89%. During lower extremity dressing task, the patient was able to use crossing leg technique to don and doff sock with the right lower extremity; however, he was unable to cross legs for donning and doffing the left sock. The patient reports not wearing socks at home and is interested in the use of a sock aide for lower extremity dressing tasks. KIKE
--- NOTE | 2017-01-16 11:36 | OT.PROG ---
Progress Note Progress Note: S: Pt stated he was feeling good today. He also stated that he might be here for a while. O: pt was seen in his room and was just finishing up breakfast. He was already dressed, but was issued sock aid. After demonstration he completed donning of socks Ind with sock aid. He completed Ind transfer downstairs while on 3 liters of o2. Once arrival into therapy he completed 6 min on UE bike to increase activity tolerance. He transferred to table and completed x10 sit to stands with 4# ball. GTB he completed rows, shoulder flex, ext, & bicep flex all x20 with BUE's to increase strength. He completed balance activity standing while tossing ball x10, stepping with L and R leg. He then stood on airEX and tossed ball while standing also to challenge his balance. We maintained CGA for safety throughout balance activities but he completed Ind. At this time pt was turned over to PT. A: pt may continue to benefit from therapy to increase activity tolerance. He appears to complete ADL's well, but will monitor this throughout week. P: continue per plan of care.
--- NOTE | 2017-01-16 11:50 | PT.PROG ---
Progress Note Progress Note: S. Patient stated that he is feeling good today. O. Patient ambulated 175 feet to the therapy gym where he performed seated exercises in the form of; long arc quads, marches, heel toe raises all with 3# weights, ball squeezes, clamshells, resisted knee flexion all x 20 bilaterally. Patient performed sit to stands x 10. then ambulated 175 feet back to his room where he was left in bed with call light and refused alarm. A. Patient tolerated exercise well, he requires frequent rest breaks to recover his breathing. Patient would continue to benefit from skilled therapy to gain strength, balance and endurance. P. Continue POC.
--- NOTE | 2017-01-16 15:39 | PT.PROG ---
Progress Note Progress Note: S. Patient stated that he is feeling good this afternoon. O. Patient ambulated 175 feet to the therapy gym where he used nu-step x 5 minutes, then performed exercises in the form of; long arc quads, heel toe raises, marches, ball squeezes, clamshells, resisted knee flexion with 3# and Red thera-band all x 15 bilaterally. Sit to stands and standing marching and hip flexion extension all x 10. Standing balance x 3 minutes. Patient ambulated 175 feet back to his room where he was left at edge of bed with alarm and call light. A. Patient tolerated exercise very well today, he continues to require frequent rest breaks to recover his o2 sats. He continues to struggle with balance however is able to correct himself with min assist. Patient would continue to benefit from skilled therapy to increase strength and balance. P. Continue POC.
--- NOTE | 2017-01-16 16:14 | OT.PROG ---
Progress Note Progress Note: S: pt was in good spirits today and agreed to go right down to therapy. O: pt was seen in his room in the p.m. and was completing ALD's Ind when we entered his room. He completed functional transfer entire way to therapy approx 300 ft. He completed activity on Nu step before transferring to table to complete exercises. He completed ther ex with BTB x2o in all ranges with BUE. He completed shoulder press with 2# LUE and only completed it actively in RUE as his range is limited. pt also completed activities to work and challenge his balance and activity tolerance with ball toss and balloon toss. Pt lost his balance x0 but did maintain CGA for safety. pt was returned to his room by PT. A: pt may continue to benefit from therapy to work on activity tolerance, although his o2 did level out and he maintained it at and around 93. He completed LE dressing Ind. We may want to monitor showering in future visits just to confirm he is Ind with this activity. P: continue per POC.
[2017-01-16] MEDS ORDERED: Pneumococcal Vacc 13 Syringe 0.5 ML DISP.SYRIN IM ONE (17:35)
[2017-01-17] MEDS: IPRATROPIUM/ALBUTEROL SULFATE 3 ML NEB NEB SCH ×4 (00:34→18:42)
[2017-01-17] MEDS: HEPARIN 5000 UNIT/1 ML SUBCUT SCH ×3 (04:15→20:19)
[2017-01-17] MEDS: FLUTICASONE/SALMETEROL 250/50 UD INHALER INH SCH ×2 (06:44→18:42)
[2017-01-17] MEDS: FUROSEMIDE 40 MG TABLET PO SCH (06:49)
[2017-01-17] MEDS: POTASSIUM CHLORIDE 20 MEQ TAB PO SCH (08:09)
[2017-01-17] MEDS: predniSONE Tab 20 MG TAB PO SCH (08:09)
[2017-01-17] MEDS: AZITHROMYCIN 250 MG TABLET PO SCH (08:09)
[2017-01-17] MEDS: BENZONATATE 200 MG CAPSULE PO SCH ×3 (08:09→20:19)
[2017-01-17] MEDS: LOSARTAN 50 MG TABLET PO SCH (08:09)
[2017-01-17] MEDS: CITALOPRAM 20 MG TABLET PO SCH (08:09)
[2017-01-17] MEDS: PANTOPRAZOLE 40 MG TABLET PO SCH ×2 (08:10→20:19)
[2017-01-17] MEDS: ASPIRIN 325 MG EC TABLET PO SCH (08:11)
--- NOTE | 2017-01-17 10:09 | PT.PROG ---
Progress Note Progress Note: S. Patient states he is feeling good today, he reports he enjoys therapy. O. Patient ambulated 175 feet to the therapy gym where he used the nu-step x 5 minutes, then performed standing balance with foam pad x 3 minutes. Patient performed sit to stands x 10, standing marches, heel toe raises, on uneven surfaces all x 15 bilaterally. Patient ambulated 175 feet back to his room where he was left in his chair with call light. A. Patient continues to tolerate exercise well, he struggles with balance activities however is able to correct himself when he looses his balance. He continues to struggle with his breathing and requires frequent rest breaks to recover. Patient would continue to benefit from skilled therapy to increase endurance and balance. P. Continue POC.
--- NOTE | 2017-01-17 13:01 | PDOC(PROG) ---
Date and Time of Service: 01/17/2017 12:59 PM Interval History: Subjective Patient feels a lot better he said compared to when he came in, came in with cough and shortness of breath. He is doing better improving with physical therapy. Shortness of breath is better. Objective : Data - Labs CBC and BMP: 01/16/17 04:12 Objective : Exam - General General Appearance: No Acute Distress, Cooperative, Obese - Head Head Exam: Normal Inspection - Eye Eye Exam: Normal Appearance - ENT ENT Exam: Normal Exam - Neck Neck Exam: Normal Inspection - Respiratory Additional Respiratory Exam Details: Decreased air entry otherwise clear - Cardiovascular Cardiovascular Exam: RRR - GI/Abdominal GI/Abdominal Exam: Normal Bowel Sounds, Non Tender, Non Distended, Soft - Rectal Rectal Exam: Deferred - External Exam: Deferred - Extremities Extremities Exam: Normal Inspection - Back Back Exam: Normal Inspection - Neurological Neurological Exam: Alert, Oriented x 3, CN II-XII Intact, No Facial Droop, Moves All Extremities Equally - Psychiatric Psychiatric Exam: Normal Affect - Integumentary Integumentary Exam: Normal Color Assessment and Plan - Patient Problems (1) COPD (chronic obstructive pulmonary disease) Current Visit: Yes Status: Acute Comment: Continue same medications but will cut back on the steroid. Question home tomorrow. Qualifiers: COPD type: COPD with acute exacerbation Qualified Description: Chronic obstructive pulmonary disease with acute exacerbation Qualifier Code(s): ( J44.1) Chronic obstructive pulmonary disease with (acute) exacerbation (2) Generalized weakness Current Visit: Yes Status: Acute Comment: Continue PT and OT for another day (3) Hypertension Current Visit: Yes Status: Chronic Comment: Same med Qualifiers: Hypertension type: essential hypertension Qualified Description: Essential hypertension Qualifier Code(s): (I10) Essential (primary) hypertension
--- NOTE | 2017-01-17 13:45 | OT.PROG ---
Progress Note Progress Note: S: Pt reports feeling well today. Minimal C/O pain with AROM in bilateral shoulders. O: Pt was educated in the use of energy conservation and work simplification techniques to use upon discharge and while in hospital. Pt was educated in pursed lip breathing techniques as well. Pt then completed the following therapeutic exercises: UBE X 5 min. with 2 rest breaks and seated UE strengthening for shoulder flexion, shoulder retraction, shoulder extension, and horizontal abduction X 15 with RTB. Pt was encouraged to use energy conservation techniques throughout therapy session, however required mod verbal cues. A: Pt is eager to participate in therapy and does well with UE exercise however fatigues quickly. Pt continues to benefit from skilled therapy to increase activity tolerance, improve energy conservation skills, and improve generalized strengthening. P: Continue POC. SHELDON Valenzuela/Jordan
--- NOTE | 2017-01-17 15:55 | OT.PROG ---
Progress Note Progress Note: S: Pt reports feeling well this afternoon, however is a little tired. Pt reports he might be able to return home tomorrow. O: Pt completed the following UE strengthening and ROM: shoulder flexion 2# 3 X 15, shoulder retraction blue TB 3 X 15, lateral trunk rotations X 15, UBE X 10 min., sit to stands X 10, and #2 box step ups X 10. Pt requires rest breaks X 1- 2 min. between each exercise and mod. verbal cues to work on pacing and pursed lip breathing techniques. A: Pt was fatigued following therapy session today. Pt has done well with therapeutic exercise and use of energy conservation techniques, however continues to require verbal cues. Therefore pt. continues to benefit from skilled therapy to increase activity tolerance and improve energy conservation techniques. P: Continue POC. SHELDON Valenzuela/Jordan
--- NOTE | 2017-01-17 16:52 | PT.PROG ---
Progress Note Progress Note: PT - PM S: Pt states that he is doing well this afternoon. Pt participated in OT prior to PT. O: Treatment consisted of: instruction in ther ex with patient performing nustep x 10 minutes (O2 averaged 95% on 3L and HR below 110), obstacle course with small and medium hurdles/airex pad/4 inch box - required CGA - MinAx 1 with higher hurdles and airex pad, ambulation x 150 feet with SBA x 1 for safety. A: Pt participates well with therapy activities. Pt struggles with balance activities on uneven surfaces and stepping up/down from raises surfaces. Pt will benefit from therapy to further work on balance. P: Continue per POC - pt may be going home tomorrow and it would be beneficial for him to continue with outpatient therapy to further improve his balance and activity tolerance.
[2017-01-17 19:17] VITALS: RESP 20
[2017-01-18] MEDS: IPRATROPIUM/ALBUTEROL SULFATE 3 ML NEB NEB SCH ×2 (00:56→06:32)
[2017-01-18] MEDS: HEPARIN 5000 UNIT/1 ML SUBCUT SCH (04:21)
[2017-01-18] MEDS: FLUTICASONE/SALMETEROL 250/50 UD INHALER INH SCH (06:34)
[2017-01-18 06:51] LABS: CALCIUM 9.3 mg/dL (8.7-10.7)
[2017-01-18] MEDS: FUROSEMIDE 40 MG TABLET PO SCH (07:12)
[2017-01-18 08:59] VITALS: TEMP 98.2
[2017-01-18] MEDS ORDERED: predniSONE Tab 10 MG, predniSONE Tab 20 MG PO SCH ×2 (09:00)
[2017-01-18] MEDS ORDERED: predniSONE Tab 20 MG TAB PO SCH (09:00)
[2017-01-18] MEDS: LOSARTAN 50 MG TABLET PO SCH (09:21)
[2017-01-18] MEDS: BENZONATATE 200 MG CAPSULE PO SCH (09:22)
[2017-01-18] MEDS: CITALOPRAM 20 MG TABLET PO SCH (09:22)
[2017-01-18] MEDS: PANTOPRAZOLE 40 MG TABLET PO SCH (09:22)
[2017-01-18] MEDS: AZITHROMYCIN 250 MG TABLET PO SCH (09:23)
[2017-01-18] MEDS: ASPIRIN 325 MG EC TABLET PO SCH (09:24)
[2017-01-18] MEDS: POTASSIUM CHLORIDE 20 MEQ TAB PO SCH (09:24)
--- NOTE | 2017-01-18 09:36 | DCSUMMARY ---
Hospitalization Summary Admit Date: 01/15/17 Discharge Date: 01/18/17 Hospital Course: Discharge diagnoses 1. COPD exacerbation 2. Obstructive sleep apnea 3. Hypertension 4. Hyperlipidemia 5. History of pneumonia 2016 6. History of ruptured cerebral aneurysm 7. Chronic kidney disease stage III Hospital course This is a 72 years old male with medical history significant for history of COPD , sleep apnea, hypertension who was admitted to the hospital because of shortness of breath this is believed to be secondary to COPD exacerbation. He was also overweight so started on diuresis however kidney function got little bit worse so the dosage of his medication where adjusted. He remained weak so his status was changed to swing bed status and he continued physical therapy while he is here. In addition Physical therapy we continued bronchodilator, steroid, antibiotic and he started to improve and his strength improved, I saw him later on on during hospital stay. He was aching improvement and on the day of discharge he was doing much better so we thought he could be discharged home on tapering dose of steroid. I did write for albuterol inhaler when necessary and Advair. He need follow-up with his primary as an outpatient. We did lower the dosage of his Lasix to once a day started off twice a day. He will follow-up also with physical therapy as an outpatient. Laboratory Results 01/16/17 01/18/17 Range/Units 04:12 04:23 Sodium 138 138 (135-145) meq/L Potassium 4.1 4.1 (3.8-5.2) meq/L Chloride 108 103 (98-112) meq/L Carbon Dioxide 23 23 (23-33) meq/L Anion Gap 7 12 (5-20) BUN 36 H 39 H (7-22) mg/dL Creatinine 1.6 H 1.5 (0.70-1.50) mg/dL Estimated GFR 43 46 (>60 ml/min/1.73m(2)) BUN/Creatinine Ratio 22.50 H 26.00 H (6-20) Glucose 110 75 L (78-110) mg/dL Calculated Osmolality 294.0 H 293.0 H (267-292) mOsm/kg Calcium 8.7 9.3 (8.7-10.7) mg/dL NT-Pro-B Natriuret Pep 766 H (0-125) PG/ML Discharge instruction Diet regular Activity as started Medications Home Medications Citalopram Hydrobromide [Celexa] 1 tab ORAL QAM #90 tab 05/10/16 [Clinic Confirmed 01/15/17] Aspirin/Calcium Carbonate/Mag [Aspir-Mox 325 mg Tablet] 325 mg PO DAILY #30 tablet 11/30/16 [Rx Confirmed 01/15/17] Potassium Chloride [Klor-Con M20] 1 tab PO DAILY #60 tab 12/10/16 [Clinic Confirmed 01/15/17] Benzonatate [Tessalon Perle] 200 mg PO TID cap 01/15/17 [Rx Confirmed 01/15/17] Furosemide [Lasix] 40 mg PO EVERY AM tab 01/15/17 [Rx Confirmed 01/15/17] Losartan [Cozaar] 50 mg PO DAILY tab 01/15/17 [Rx Confirmed 01/15/17] Pantoprazole Sodium [Protonix] 40 mg PO BID tab 01/15/17 [Rx Confirmed 01/15/17 ] Albuterol Sulfate [Ventolin Hfa] 2 puff INH Q4H PRN #1 inh 01/18/17 [Rx] Azithromycin [Zithromax] 250 mg PO DAILY #4 tab 01/18/17 [Rx] Flutica/Salmet 250/50 Inhaler [Advair Diskus 250/50 Inhaler] 1 puff INH RTBID # 1 inhaler 01/18/17 [Rx] predniSONE Tab [Deltasone Tab] 30 mg PO DAILY #9 tab 01/18/17 [Rx] Follow-up with PCP in 1-2 weeks Condition at discharge her stable for discharge. Exam - Vitals Vital Signs: Vital Signs Temperature 98.2 F Temperature Source Temporal Artery Scan Pulse Rate [Pulse Oximeter] 103 Pulse Rate [Apical] 93 Respiratory Rate 20 Blood Pressure [Right Arm] 158/69 Pulse Ox 91 Oxygen Flow Rate 3.5 Oxygen Delivery Method Nasal Cannula Height 6 ft 2 in Weight 304 lb 8 oz - General General Appearance: POSITIVE: No Acute Distress, Obese - Head Head Exam: POSITIVE: Normal Inspection, Atraumatic - Eye Eye Exam: POSITIVE: Normal Appearance - ENT ENT Exam: POSITIVE: Normal Exam - Neck Neck Exam: POSITIVE: Normal Inspection - Respiratory Additional Respiratory Exam Details: Decreased air entry otherwise clear - Cardiovascular Cardiovascular Exam: POSITIVE: RRR - GI/Abdominal GI/Abdominal Exam: POSITIVE: Normal Bowel Sounds, Non Tender, Non Distended - Rectal Rectal Exam: POSITIVE: Deferred - External Exam: POSITIVE: Deferred - Extremities Extremities Exam: POSITIVE: Normal Inspection, Pedal Edema - Back Back Exam: POSITIVE: Normal Inspection - Neurological Neurological Exam: POSITIVE: Alert, Oriented x 3, CN II-XII Intact, Speech Intact / Clear, Moves All Extremities Equally - Psychiatric Psychiatric Exam: POSITIVE: Normal Affect Patient Problems - Patient Problem List (1) COPD (chronic obstructive pulmonary disease) Status: Acute Qualifiers: COPD type: COPD with acute exacerbation Qualified Description: Chronic obstructive pulmonary disease with acute exacerbation Qualifier Code(s): ( J44.1) Chronic obstructive pulmonary disease with (acute) exacerbation (2) Generalized weakness Status: Acute (3) Hypertension Status: Chronic Qualifiers: Hypertension type: essential hypertension Qualified Description: Essential hypertension Qualifier Code(s): (I10) Essential (primary) hypertension
== END 2017-01-18 11:28 | disposition home or self-care (01) | DRG 192 ==
LOC: MED/SURG 14:25 → UNDOADMIN 14:25 → MED/SURG 14:44
PROVIDERS: ADMIT Family Medicine; ATTEND Family Medicine
DX: J44.1 Chronic obstructive pulmonary disease with (acute) exacerbation (principal); R53.1 Weakness; G47.33 Obstructive sleep apnea (adult) (pediatric); I10 Essential (primary) hypertension; E78.5 Hyperlipidemia, unspecified; N18.3 Chronic kidney disease, stage 3 (moderate); K21.9 Gastro-esophageal reflux disease without esophagitis; I27.81 Cor pulmonale (chronic)
CPT/HCPCS: 36415; 80048; 83880; 90670; 94640; 94761; 97110; 97161; 97165; 97530; 97535; J1644; J7512; J7620

== ENCOUNTER → 2017-02-01 | Outpatient (CLI) | payer OTHER | LOC: MOB LAB 13:09 | DX: R04.0 Epistaxis (principal); R21 Rash and other nonspecific skin eruption | CPT/HCPCS: 30901 ×2; 87070; 87205; G0463 ==

== ENCOUNTER 2017-07-27 02:39 | Inpatient (IN) ==
[2017-07-27] MEDS ORDERED: Sodium Chloride 0.9% 1,000 ML PRIMARY IV ONE (02:49)
[2017-07-27] MEDS ORDERED: IPRATROPIUM/ALBUTEROL SULFATE 3 ML NEB NEB ONE (02:49)
[2017-07-27] MEDS ORDERED: NORMAL SALINE 10 ML SYRINGE FLUSH IVP PRN ×2 (02:49→05:08)
[2017-07-27] MEDS ORDERED: methylPREDNISolone 125 MG/2 ML VIAL IVP ONE (02:57)
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
--- NOTE | 2017-07-27 03:07 | EKG ---
[address] [address] Measurements Intervals [place] Rate: 76 P: 76 NM: 153 QRS: 38 QRSD: 88 T: 81 QT: 363 QTc: 394 Interpretive Statements SINUS RHYTHM Compared to ECG 06/13/2017 11:21:11 No significant changes Electronically Signed On 07-29-17 16:06:19 MST by Donell Cardenas [email or web address]
[2017-07-27 03:18] LABS: Hematocrit [HCT] 47.3 % (42.0-52.0); Hemoglobin [HGB] 15.7 g/dL (14.0-18.0); MEAN CORPUSCULAR HEMOGLOBIN 29.8 PG (27-31); MEAN CORPUSCULAR HGB CONC 33.2 g/dL (33-37); MEAN CORPUSCULAR VOLUME 89.9 FL (80-90); MEAN PLATELET VOLUME 11.4 FL (7.4-12.2); RED BLOOD COUNT 5.26 10^6/uL (4.70-6.10)
[2017-07-27 03:27] LABS: BUN/CREATININE RATIO 28.12 (6-20)
[2017-07-27 03:36] LABS: PLATELET MORPHOLOGY COMMENT NORMAL MORPHOLOGY (NORM); RBC MORPHOLOGY COMMENT NORMAL MORPHOLOGY (NORM); WBC MORPHOLOGY COMMENT NORMAL MORPHOLOGY (NORM)
[2017-07-27 03:37] LABS: BAND NEUTROPHILS % 7 % (0-10); BASOPHILS % (MANUAL) 0 % (0-1); EOSINOPHILS % (MANUAL) 0 % (0-8); MONOCYTES % (MANUAL) 2 % (0-12); NEUTROPHILS % (MANUAL) 83 % (50-80)
[2017-07-27 03:38] LABS: VENOUS PH 7.34 (7.32-7.42)
--- NOTE | 2017-07-27 03:48 | DI ---
EXAM: XR Chest, 1 View CLINICAL HISTORY: ITS.REASON Dyspnea Physician Notes: Tech Comments: TECHNIQUE: Frontal view of the chest. COMPARISON: Chest x-ray dated 06/24/2017. FINDINGS: Lungs: Unremarkable. The lungs are clear. Pleural space: Unremarkable. No pneumothorax. Heart: Reidentified moderate cardiomegaly. Mediastinum: Unremarkable. Bones/joints: Left shoulder arthroplasty. IMPRESSION: No acute findings.
[2017-07-27] MEDS ORDERED: cefTRIAXone Inj 2 GM in Sodium Chloride 0.9% 100 ML IV ONE (04:01)
[2017-07-27] MEDS ORDERED: LIDOCAINE W/ SODIUM BICARB 0.5 ML SYR SUBD PRN (05:08)
[2017-07-27] MEDS: IPRATROPIUM/ALBUTEROL SULFATE 3 ML NEB NEB SCH ×4 (06:05→19:20)
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
[2017-07-27] MEDS: VENLAFAXINE XR 75 MG CAP PO SCH (08:39)
[2017-07-27] MEDS: ASPIRIN EC 81 MG TABLET PO SCH (08:39)
[2017-07-27] MEDS: Sodium Chloride 0.9% 1,000 ML IV SCH ×2 (08:39→17:52)
[2017-07-27] MEDS: LOSARTAN 50 MG TABLET PO SCH (08:39)
[2017-07-27] MEDS ORDERED: LINACLOTIDE 145 MCG PO SCH (09:00)
[2017-07-27] MEDS: methylPREDNISolone 125 MG/2 ML VIAL IVP SCH ×3 (10:11→21:02)
[2017-07-27] MEDS: ACETAMINOPHEN 325 MG TABLET PO PRN (13:07)
[2017-07-28] MEDS: ALBUTEROL SULFATE 2.5 MG/3 ML NEB PRN (00:43)
[2017-07-28] MEDS: methylPREDNISolone 125 MG/2 ML VIAL IVP SCH ×3 (03:45→16:32)
[2017-07-28] MEDS: Sodium Chloride 0.9% 1,000 ML IV SCH (03:46)
[2017-07-28] MEDS ORDERED: AZITHROMYCIN 500 MG VIAL IV ONE (03:54)
[2017-07-28] MEDS ORDERED: Sodium Chloride 0.9% 250 ML IV ONE (03:54)
[2017-07-28] MEDS ORDERED: cefTRIAXone Inj 1 GM in Sodium Chloride 0.9% 100 ML IV SCH (04:30)
[2017-07-28 06:24] LABS: Hematocrit [HCT] 45.1 % (42.0-52.0); Hemoglobin [HGB] 14.7 g/dL (14.0-18.0); MEAN CORPUSCULAR HEMOGLOBIN 29.6 PG (27-31); MEAN CORPUSCULAR HGB CONC 32.6 g/dL (33-37); MEAN CORPUSCULAR VOLUME 90.7 FL (80-90); MEAN PLATELET VOLUME 11.6 FL (7.4-12.2); RED BLOOD COUNT 4.97 10^6/uL (4.70-6.10)
[2017-07-28 06:37] LABS: PLATELET MORPHOLOGY COMMENT SEE COMMENTS (NORM); WBC MORPHOLOGY COMMENT NORMAL MORPHOLOGY (NORM)
[2017-07-28 06:38] LABS: BAND NEUTROPHILS % 7 % (0-10); BASOPHILS % (MANUAL) 0 % (0-1); BUN/CREATININE RATIO 27.5 (6-20); EOSINOPHILS % (MANUAL) 0 % (0-8); MONOCYTES % (MANUAL) 1 % (0-12); NEUTROPHILS % (MANUAL) 88 % (50-80); RBC MORPHOLOGY COMMENT SEE COMMENTS (NORM)
[2017-07-28] MEDS: IPRATROPIUM/ALBUTEROL SULFATE 3 ML NEB NEB SCH ×4 (06:58→19:15)
[2017-07-28] MEDS: LOSARTAN 50 MG TABLET PO SCH (09:05)
[2017-07-28] MEDS: ACETAMINOPHEN 325 MG TABLET PO PRN (09:09)
[2017-07-28] MEDS: ASPIRIN EC 81 MG TABLET PO SCH (09:09)
[2017-07-28] MEDS: VENLAFAXINE XR 75 MG CAP PO SCH (09:39)
--- NOTE | 2017-07-28 10:15 | PDOC(PROG) ---
Interval History: Patient is doing a little better compared to yesterday still has some wheezing bilaterally and cough blood pressure was a little low so his valsartan was held Objective : Data - Labs CBC and BMP: 07/28/17 04:10 07/28/17 04:10 Objective : Exam - General General Appearance: Cooperative - Respiratory Respiratory Exam: Decreased Breath Sounds, Rhonci, Wheezes - Cardiovascular Cardiovascular Exam: RRR, No Murmur, No Clicks, No Gallops, No Rubs, PMI Non- Displaced - GI/Abdominal GI/Abdominal Exam: Normal Bowel Sounds, Non Tender, Non Distended, Soft, No Masses, No Hepatomegaly, No Splenomegaly, No Organomegaly - Extremities Extremities Exam: +1 Edema Assessment and Plan - Patient Problems (1) COPD with acute exacerbation Current Visit: No Status: Acute Comment: poss pneumonia elevated wbc and left shift will get ct chest no contrast Code(s): J44.1 - Chronic obstructive pulmonary disease with (acute) exacerbation (2) Hypertension Current Visit: No Status: Chronic Comment: stable Code(s): I10 - Essential (primary) hypertension Qualifiers: Hypertension type: essential hypertension Qualified Code(s): I10 - Essential (primary) hypertension (3) Acute renal failure Current Visit: Yes Status: Acute Comment: pre renal improving Code(s): N17.9 - Acute kidney failure, unspecified (4) Depression Current Visit: No Status: Acute Code(s): F32.9 - Major depressive disorder, single episode, unspecified
[2017-07-28] MEDS: cefTRIAXone Inj 2 GM in Sodium Chloride 0.9% 100 ML IV SCH (11:01)
--- NOTE | 2017-07-28 12:39 | DI ---
EXAM: CT Chest Without Intravenous Contrast CLINICAL HISTORY: ITS.REASON hypoxia Physician Notes: Tech Comments: TECHNIQUE: Axial computed tomography images of the chest without intravenous contrast. COMPARISON: 01/11/17 FINDINGS: Upper lobe-predominant emphysema similar to prior study. There is also bronchial wall thickening suggesting bronchitis. This has progressed significantly in the interval. RUL calcified granulomas. There is thoracic aortic atherosclerosis. No aneurysm. Multiple bilateral renal cysts. Largest incompletely assessed cyst to the mid left kidney measures at least 4.3 cm. Spinal hyperostosis. No acute fracture. Left shoulder arthroplasty. IMPRESSION: Progressive bronchial wall thickening suggesting worsening bronchitis. Redemonstrated emphysema. Incidental findings as detailed above.
[2017-07-29] MEDS: ALBUTEROL SULFATE 2.5 MG/3 ML NEB PRN (03:56)
[2017-07-29 05:47] LABS: Hematocrit [HCT] 46.9 % (42.0-52.0); Hemoglobin [HGB] 15.1 g/dL (14.0-18.0); MEAN CORPUSCULAR HEMOGLOBIN 29.4 PG (27-31); MEAN CORPUSCULAR HGB CONC 32.2 g/dL (33-37); MEAN CORPUSCULAR VOLUME 91.2 FL (80-90); MEAN PLATELET VOLUME 11.6 FL (7.4-12.2); RED BLOOD COUNT 5.14 10^6/uL (4.70-6.10)
[2017-07-29 05:58] LABS: BUN/CREATININE RATIO 24.28 (6-20); SERUM ALBUMIN 3.4 g/dL (3.5-4.8)
[2017-07-29] MEDS: IPRATROPIUM/ALBUTEROL SULFATE 3 ML NEB NEB SCH ×4 (06:33→19:05)
[2017-07-29] MEDS: VENLAFAXINE XR 75 MG CAP PO SCH (08:27)
[2017-07-29] MEDS: Sodium Chloride 0.9% 1,000 ML IV SCH (08:27)
[2017-07-29] MEDS: predniSONE Tab 20 MG TAB PO SCH (08:27)
[2017-07-29] MEDS: AZITHROMYCIN 250 MG TABLET PO SCH (08:27)
[2017-07-29] MEDS: ASPIRIN EC 81 MG TABLET PO SCH (08:27)
[2017-07-29] MEDS: ASCORBIC ACID 500 MG TABLET PO SCH (08:27)
[2017-07-29] MEDS: FUROSEMIDE 10 MG/1 ML - 4 ML IVP SCH ×2 (09:00→14:23)
[2017-07-29] MEDS: cefTRIAXone Inj 2 GM in Sodium Chloride 0.9% 100 ML IV SCH (10:21)
--- NOTE | 2017-07-29 11:36 | PDOC(PROG) ---
Interval History: Patient is doing much better respiratory-merritt shortness of breath lungs are clear today he does complain of some chest pain Objective : Data - Labs CBC and BMP: 07/29/17 04:17 07/29/17 04:17 Objective : Exam - General General Appearance: Cooperative - Neck Neck Exam: Normal Inspection, Full ROM, No Tenderness - Respiratory Respiratory Exam: Clear to Auscultation - Bilaterally, Breathing Non Labored, Normal To Percussion, Normal to Percussion and Palpation - Cardiovascular Cardiovascular Exam: RRR, No Murmur, No Clicks, No Gallops, No Rubs, PMI Non- Displaced - GI/Abdominal GI/Abdominal Exam: Normal Bowel Sounds, Non Tender, Non Distended, Soft, No Masses, No Hepatomegaly, No Splenomegaly, No Organomegaly Assessment and Plan - Patient Problems (1) COPD with acute exacerbation Current Visit: No Status: Acute Comment: Continue antibiotics and steroids patient is improving lungs are clear Code(s): J44.1 - Chronic obstructive pulmonary disease with (acute) exacerbation (2) Hypertension Current Visit: No Status: Chronic Comment: We will be holding losartan because of some renal failure Code(s): I10 - Essential (primary) hypertension Qualifiers: Hypertension type: essential hypertension Qualified Code(s): I10 - Essential (primary) hypertension (3) Acute renal failure Current Visit: Yes Status: Acute Comment: Normal saline 75 an hour Code(s): N17.9 - Acute kidney failure, unspecified (4) Depression Current Visit: No Status: Acute Code(s): F32.9 - Major depressive disorder, single episode, unspecified (5) Congestive heart failure Current Visit: Yes Status: Acute Comment: Elevated BNP diuresis with Lasix check troponins order echo Code(s): I50.9 - Heart failure, unspecified
--- NOTE | 2017-07-29 11:43 | EKG ---
[address] [address] Measurements Intervals [place] Rate: 98 P: 79 [place]: 142 QRS: 39 QRSD: 88 T: 75 QT: 328 QTc: 383 Interpretive Statements SINUS RHYTHM Compared to ECG 07/27/2017 03:07:09 No significant changes Electronically Signed On 07-29-17 15:49:05 MST by Donell Cardenas [id number]
[2017-07-29] MEDS ORDERED: FUROSEMIDE 10 MG/1 ML - 4 ML IVP SCH (13:00)
[2017-07-30] MEDS: Sodium Chloride 0.9% 1,000 ML IV SCH ×2 (02:26→16:18)
[2017-07-30] MEDS ORDERED: LIDOCAINE W/ SODIUM BICARB 0.5 ML SYR ONE (06:21)
[2017-07-30] MEDS: IPRATROPIUM/ALBUTEROL SULFATE 3 ML NEB NEB SCH ×4 (06:41→18:44)
[2017-07-30 06:50] LABS: Hematocrit [HCT] 46.5 % (42.0-52.0); Hemoglobin [HGB] 15.1 g/dL (14.0-18.0); MEAN CORPUSCULAR HEMOGLOBIN 29.6 PG (27-31); MEAN CORPUSCULAR HGB CONC 32.5 g/dL (33-37); MEAN CORPUSCULAR VOLUME 91.2 FL (80-90); MEAN PLATELET VOLUME 11.2 FL (7.4-12.2)
[2017-07-30] MEDS: FUROSEMIDE 10 MG/1 ML - 4 ML IVP SCH (06:52)
[2017-07-30 07:10] LABS: SERUM ALBUMIN 3.3 g/dL (3.5-4.8)
[2017-07-30 07:45] LABS: PLATELET MORPHOLOGY COMMENT NORMAL MORPHOLOGY (NORM); RBC MORPHOLOGY COMMENT NORMAL MORPHOLOGY (NORM); WBC MORPHOLOGY COMMENT SEE COMMENTS (NORM)
[2017-07-30 07:48] LABS: BAND NEUTROPHILS % 1 % (0-10); BASOPHILS % (MANUAL) 0 % (0-1); EOSINOPHILS % (MANUAL) 0 % (0-8); MONOCYTES % (MANUAL) 6 % (0-12); NEUTROPHILS % (MANUAL) 75 % (50-80)
[2017-07-30] MEDS: AZITHROMYCIN 250 MG TABLET PO SCH (08:26)
[2017-07-30] MEDS: ASPIRIN EC 81 MG TABLET PO SCH (08:26)
[2017-07-30] MEDS: VENLAFAXINE XR 75 MG CAP PO SCH (08:26)
[2017-07-30] MEDS: ASCORBIC ACID 500 MG TABLET PO SCH (08:26)
[2017-07-30] MEDS: predniSONE Tab 20 MG TAB PO SCH (08:26)
[2017-07-30] MEDS: cefTRIAXone Inj 2 GM in Sodium Chloride 0.9% 100 ML IV SCH (09:31)
--- NOTE | 2017-07-30 11:08 | PTI REPORT ---
Thank you for the referral of Blayne Salgado. He was seen on 07/30/17 for an inpatient evaluation secondary to generalized weakness. SUBJECTIVE: The patient is a 72-year-old male. The patient reports he came into the hospital early Saturday morning due to difficulty breathing and was subsequently admitted. The patient reports he has been on Prednisone as well as Lasix and has been having a difficult time getting away from the bathroom, having to urinate every few minutes according to the patient. He states he is feeling a lot better and regularly is admitted to the hospital due to exacerbations of COPD. PAST MEDICAL HISTORY: Past medical history can be found in the patient's medical record. OBJECTIVE FINDINGS: Pain: The patient denies any pain except for his left knee, stating that sometime over the next few months he may be undergoing a left knee operation. Oxygen: The patient is currently on three liters of oxygen via nasal cannula during the day as well as at night. Transfers: The patient was able to perform all sit to stand transfers with modified independence with the use of his upper extremities. Activities of daily living: The patient demonstrates the ability to perform all toileting activities with the use of oxygen with modified independence. Ambulation: The patient does not require an assistive device at this time. Total ambulatory activities were unable to be formally tested due to the patient not wanting to get far away from the bathroom due to being on Lasix. Balance: The patient is unable to perform single legged standing balance activities due to pain increase in his left knee. Range of motion: The patient's range of motion was within functional limitations for bilateral lower extremities. Strength: Strength generally is 4/5. ASSESSMENT: Problem List: Decreased overall strength and endurance Physical Therapy Goals: To be met by discharge from inpatient: Patient will be able to ambulate up to 300 feet for community ambulation independently. TREATMENT PLAN: Patient will be seen B.I.D during the week and one time per day over the weekend as an inpatient to address the above goals and objectives. INITIAL TREATMENT: Treatment today consisted of the initial evaluation only due to the patient not wanting to get far away from the bathroom due to his Lasix use. KIKE
--- NOTE | 2017-07-30 11:22 | PDOC(PROG) ---
Interval History: Patient feels much better today his lungs are clear to auscultation he did diurese too half liters yesterday with his Lasix. No chest pain nausea or vomiting Objective : Data - Labs CBC and BMP: 07/30/17 04:53 07/30/17 04:53 Objective : Exam - Head Head Exam: Normal Inspection, Normocephalic, Atraumatic - Respiratory Respiratory Exam: Clear to Auscultation - Bilaterally, Breathing Non Labored, Normal To Percussion, Normal to Percussion and Palpation - Cardiovascular Cardiovascular Exam: RRR, No Murmur, No Clicks, No Gallops, No Rubs, PMI Non- Displaced - GI/Abdominal GI/Abdominal Exam: Normal Bowel Sounds, Non Tender, Non Distended, Soft, No Masses, No Hepatomegaly, No Splenomegaly, No Organomegaly - Extremities Extremities Exam: Normal Capillary Refill, No Clubbing Present, No Edema Present Assessment and Plan - Patient Problems (1) COPD with acute exacerbation Current Visit: No Status: Acute Comment: This is in remission bronchitis improved WBCs improving. I believe the patient once the discharge will need pulmonary function test. I also believe he has some cor pulmonale with right heart failure echo in January the did not show any ejection fraction reduction but it was a poor study because of his body habitus. BNP was slightly elevated also BUN/creatinine a little elevated most likely from poor perfusion I did stop the Lasix and his valsartan for these reasons also. Fluids today. Counseled extensively on weight reduction Code(s): J44.1 - Chronic obstructive pulmonary disease with (acute) exacerbation (2) Hypertension Current Visit: No Status: Chronic Comment: Stable at present time hold valsartan because of elevation BUN/ creatinine Code(s): I10 - Essential (primary) hypertension Qualifiers: Hypertension type: essential hypertension Qualified Code(s): I10 - Essential (primary) hypertension (3) Acute renal failure Current Visit: Yes Status: Acute Comment: We'll keep a close eye on this most likely from poor perfusion) heart failure or cor pulmonale beginning stages will most likely need a Lexiscan stress test as well Code(s): N17.9 - Acute kidney failure, unspecified (4) Depression Current Visit: No Status: Acute Comment: Stable Code(s): F32.9 - Major depressive disorder, single episode, unspecified (5) Congestive heart failure Current Visit: Yes Status: Acute Comment: See above Code(s): I50.9 - Heart failure, unspecified
--- NOTE | 2017-07-30 16:04 | PT.PROG ---
Progress Note Progress Note: S. Patient stated that he does not feel up to going to the therapy gym this afternoon. O. Patient performed seated exercises in the form of; long arc quads, heel toe raises, marches, resisted knee flexion clam shells, all x 10 bilaterally with red thera band, sit to stands x 10. Patient was left in his chair with alarm and call light. A. Patient tolerated therapy fair, he struggles with weakness and balance deficits. He would continue to benefit from skilled therapy to increase strength and mobility and endurance. P. Continue POC.
[2017-07-30] MEDS ORDERED: FUROSEMIDE 10 MG/1 ML - 4 ML IVP ONE (19:28)
[2017-07-30] MEDS ORDERED: BENZONATATE 100 MG CAPSULE PO PRN (19:30)
[2017-07-31 04:49] LABS: Hematocrit [HCT] 46.3 % (42.0-52.0); Hemoglobin [HGB] 15.1 g/dL (14.0-18.0); MEAN CORPUSCULAR HEMOGLOBIN 29.5 PG (27-31); MEAN CORPUSCULAR HGB CONC 32.6 g/dL (33-37); MEAN CORPUSCULAR VOLUME 90.4 FL (80-90); MEAN PLATELET VOLUME 10.9 FL (7.4-12.2); RED BLOOD COUNT 5.12 10^6/uL (4.70-6.10)
[2017-07-31 05:03] LABS: BUN/CREATININE RATIO 32.85 (6-20); SERUM ALBUMIN 3.3 g/dL (3.5-4.8)
[2017-07-31] MEDS: IPRATROPIUM/ALBUTEROL SULFATE 3 ML NEB NEB SCH ×4 (06:59→22:04)
--- NOTE | 2017-07-31 08:05 | PDOC(PROG) ---
Interval History: Doing well he feels great he said when he received the Norvasc it was like magic he was not short of breath going to the bathroom and back his lower extremities were little swollen. No chest pain Objective : Data - Labs CBC and BMP: 07/31/17 04:30 07/31/17 04:30 Objective : Exam - General General Appearance: No Acute Distress - Respiratory Respiratory Exam: Clear to Auscultation - Bilaterally, Breathing Non Labored, Normal To Percussion, Normal to Percussion and Palpation - Cardiovascular Cardiovascular Exam: RRR, No Murmur, No Clicks, No Gallops, No Rubs, PMI Non- Displaced - GI/Abdominal GI/Abdominal Exam: Normal Bowel Sounds, Non Tender, Non Distended, Soft, No Masses, No Hepatomegaly, No Splenomegaly, No Organomegaly - Extremities Extremities Exam: Normal Inspection, No Clubbing Present, +1 Edema, +2 Edema - Neurological Neurological Exam: Alert, Oriented x 3 Assessment and Plan - Patient Problems (1) COPD with acute exacerbation Current Visit: No Status: Acute Comment: He says resolved I'll stop his antibiotic today we'll continue steroids for 2 more days he received ceftriaxone and Zithromax for 5 days for bronchitis and COPD exacerbation which cleared Code(s): J44.1 - Chronic obstructive pulmonary disease with (acute) exacerbation (2) Hypertension Current Visit: No Status: Chronic Comment: Stable at present time I've added Norvasc 10 mg daily and stopped his ARB this is working much better for him Code(s): I10 - Essential (primary) hypertension Qualifiers: Hypertension type: essential hypertension Qualified Code(s): I10 - Essential (primary) hypertension (3) Acute renal failure Current Visit: Yes Status: Acute Comment: Patient is borderline I believe he has poor perfusion from right-sided heart failure will need to follow-up with cardiology for repeat echo and possible Lexiscan stress test I am limited down on October given him more Lasix secondary to renal failure is when necessary as gone up we'll ultimately need follow-up and consultation with pulmonology as well Code(s): N17.9 - Acute kidney failure, unspecified (4) Depression Current Visit: No Status: Acute Comment: On Effexor Code(s): F32.9 - Major depressive disorder, single episode, unspecified (5) Congestive heart failure Current Visit: Yes Status: Acute Comment: Acute right-sided pleural quality on the echo from 3 months ago Code(s): I50.9 - Heart failure, unspecified (6) Obesity Current Visit: Yes Status: Acute Comment: Previous causing most of his issues in regards to the cor pulmonale I had a long discussion on the counseling with the low-carb diet and PT OT and exercise patient says he doesn't know if he wants to do this could see gloves as potatoes and everything else he eats Code(s): E66.9 - Obesity, unspecified
[2017-07-31] MEDS: predniSONE Tab 20 MG TAB PO SCH (08:19)
[2017-07-31] MEDS: ASCORBIC ACID 500 MG TABLET PO SCH (08:19)
[2017-07-31] MEDS: ASPIRIN EC 81 MG TABLET PO SCH (08:19)
[2017-07-31] MEDS: VENLAFAXINE XR 75 MG CAP PO SCH (08:19)
[2017-07-31] MEDS: FUROSEMIDE 20 MG TABLET PO SCH ×2 (08:19→13:30)
--- NOTE | 2017-07-31 09:49 | OT PM DAY ---
Diagnosis : Weakness PM - Occupational Therapy S: The patient reports he would prefer to stay in his room today as he is extremely tired. He states he has not been sleeping well. He has extreme left knee pain. The patient was hoping to have knee surgery today, but it has been postponed due to other health concerns. O: The patient was seen in his room. He completed upper extremity exercises with bilateral upper extremities. We stayed below 90 degrees to prevent anymore shoulder pain in either shoulder. He completed exercises in all ranges with green theraband x15 to increase his strength. A: The patient tolerated exercises well. As long as we stayed below 90 degrees, we did not increase any pain in his shoulders. The patient may benefit from some pool therapy tomorrow to assist with his knee pain. The patient agreed this was a good idea. P: Continue seeing patient BID during the week and one time per day over the weekend for upper extremity strengthening, ADLs, and overall functional mobility. MTDD
--- NOTE | 2017-07-31 15:24 | OTI REPORT ---
Thank you for the referral of Blayne Salgado. He was seen on 07/30/17 for an occupational therapy inpatient evaluation secondary to generalized weakness. SUBJECTIVE: The patient is a 72-year-old male who was brought in secondary to an exacerbation of his COPD. The patient lives by himself in his home and he states he has two different caretakers that help him with some home care tasks as well as cooking his meals. The patient is on 3 liters of oxygen at home. The patient states that he is doing pretty well with most things. The patient is very adamant about losing some weight and living a healthier lifestyle. The patient states that his shower is set up nicely with a chair. He does not report any difficulty getting on and off of the toilet. The patient states he does have some difficulty dressing himself. PAST MEDICAL HISTORY: Past medical history can be found in the patient's medical record. OBJECTIVE FINDINGS: Range of motion: The patient had within functional limits for active range of motion of the left shoulder. The right shoulder demonstrates 0 to 90 degrees of active motion. Strength: Strength on the left side is 4+/5 throughout. Strength on the right is 2+/5 for flexion, 2+/5 for abduction, 4/5 for elbow flexion/extension, and 4+ /5 for wrist flexion/extension. The patient does have a history of a rotator cuff tear on the right side. He says eventually he may need surgery. Activities of daily living: The patient was independent with dressing upper extremities after set up. The patient required increased time to don his left sock. The patient is unable to don and doff his sock on the right side. He may benefit from adaptive equipment. The patient requires min assist to don pants. Transfers: The patient requires stand by assist for all functional transfers including bed, shower, and toilet transfers. ASSESSMENT: Problem List: Patient requires education on energy conservation techniques Patient requires education on adaptive equipment for lower extremity dressing Dietary consult is recommended Short-Term Goals: To be met by discharge from inpatient: Patient will increase upper extremity strength to 4+/5 and be independent with a home exercise program. Patient will be able to complete bed mobility and transfers with modified independence. Patient will be able to recall three energy conservation techniques. Long-Term Goals: To be met following discharge from inpatient: Patient will be discharged to home, demonstrating modified independence with all functional ADLs. TREATMENT PLAN: Patient will be seen B.I.D during the week and one time per day over the weekend as an inpatient to address the above goals and objectives. INITIAL TREATMENT: Treatment today consisted of the initial evaluation followed by attempting lower extremity dressing activities. The patient was instructed in home safety with transfers and tasks. The patient's and daughters were present during today's session. KIKE
--- NOTE | 2017-07-31 15:25 | OT.PROG ---
Progress Note Progress Note: S: pt refused therapy today in the am. Stating she is just tired and his knees hurt.
[2017-07-31] MEDS: ALBUTEROL SULFATE 2.5 MG/3 ML NEB PRN (19:17)
[2017-07-31] MEDS ORDERED: CALCIUM CARBONATE 500 MG (TUMS) CHEWABLE TABLET PO PRN (19:49)
[2017-07-31] MEDS ORDERED: Benzocaine/Menthol 6mg/10mg 1 EACH LOZENGE PO PRN (19:50)
[2017-08-01 05:56] LABS: Hematocrit [HCT] 45.7 % (42.0-52.0); Hemoglobin [HGB] 14.6 g/dL (14.0-18.0); MEAN CORPUSCULAR HGB CONC 31.9 g/dL (33-37); MEAN CORPUSCULAR VOLUME 90.9 FL (80-90); MEAN PLATELET VOLUME 11.3 FL (7.4-12.2); RED BLOOD COUNT 5.03 10^6/uL (4.70-6.10)
[2017-08-01 06:06] LABS: BUN/CREATININE RATIO 36.92 (6-20); SERUM ALBUMIN 3.1 g/dL (3.5-4.8)
[2017-08-01 06:19] LABS: PLATELET MORPHOLOGY COMMENT NORMAL MORPHOLOGY (NORM); RBC MORPHOLOGY COMMENT NORMAL MORPHOLOGY (NORM); WBC MORPHOLOGY COMMENT SEE COMMENTS (NORM)
[2017-08-01 06:20] LABS: BAND NEUTROPHILS % 2 % (0-10); BASOPHILS % (MANUAL) 0 % (0-1); EOSINOPHILS % (MANUAL) 1 % (0-8); MONOCYTES % (MANUAL) 2 % (0-12); NEUTROPHILS % (MANUAL) 82 % (50-80)
[2017-08-01] MEDS: IPRATROPIUM/ALBUTEROL SULFATE 3 ML NEB NEB SCH ×3 (06:38→14:57)
[2017-08-01] MEDS: VENLAFAXINE XR 75 MG CAP PO SCH (08:29)
[2017-08-01] MEDS: ASCORBIC ACID 500 MG TABLET PO SCH (08:29)
[2017-08-01] MEDS: ASPIRIN EC 81 MG TABLET PO SCH (08:29)
[2017-08-01] MEDS: FUROSEMIDE 20 MG TABLET PO SCH (08:30)
[2017-08-01] MEDS: predniSONE Tab 20 MG TAB PO SCH (08:30)
[2017-08-01] MEDS ORDERED: predniSONE 5 MG TABLET PO ONE (13:04)
--- NOTE | 2017-08-01 13:42 | PDOC(PROG) ---
Date and Time of Service: 08/01/2017, 1335 Interval History: Patient feels like his edema got worse overnight despite Lasix. States it gets better at nighttime. His shortness breath overall is better. Echocardiogram was unfortunately a technically limited study without a lot of information on right congestive heart failure. He has not had any right heart pressures to my knowledge to be able to determine how severe his cor pulmonale is or whether or not he would be of vasodilator responder. This is upwards of his fourth infection since January 2017. He's been on prednisone daily but he really cannot tell me the dose. Objective : Data - Labs CBC and BMP: 08/01/17 04:50 08/01/17 04:50 Objective : Exam - General General Appearance: No Acute Distress, Cooperative Additional General Exam Details: Vital Signs - Last Taken Temperature 97.5 F 08/01/17 11:32 Pulse Rate 100 08/01/17 11:32 Respiratory Rate 20 08/01/17 11:32 Blood Pressure 134/88 08/01/17 11:32 Pulse Ox 92 08/01/17 11:32 - Eye Eye Exam: No Scleral Icterus - ENT ENT Exam: Mucous Membranes Moist - Respiratory Respiratory Exam: Breathing Non Labored, Coarse Breath Sounds - Cardiovascular Cardiovascular Exam: RRR, No Murmur, No Clicks, No Gallops, No Rubs, No JVD - GI/Abdominal GI/Abdominal Exam: Normal Bowel Sounds, Non Tender, Non Distended, Soft - Extremities Extremities Exam: No Cyanosis Present, Clubbing Present, +3 Edema - Neurological Neurological Exam: Alert, Oriented x 3, No Facial Droop, Speech Intact / Clear, Moves All Extremities Equally - Psychiatric Psychiatric Exam: Normal Affect, Normal Mood Assessment and Plan - Patient Problems (1) COPD with acute exacerbation Current Visit: No Status: Acute Code(s): J44.1 - Chronic obstructive pulmonary disease with (acute) exacerbation (2) Cor pulmonale (chronic) Current Visit: Yes Status: Acute Code(s): I27.81 - Cor pulmonale (chronic) (3) Hypertension Current Visit: Yes Status: Chronic Code(s): I10 - Essential (primary) hypertension Qualifiers: Hypertension type: essential hypertension Qualified Code(s): I10 - Essential (primary) hypertension (4) Depression Current Visit: Yes Status: Chronic Code(s): F32.9 - Major depressive disorder, single episode, unspecified Qualifiers: Depression Type: other depression Qualified Code(s): F32.89 - Other specified depressive episodes (5) Acute renal failure Current Visit: Yes Status: Resolved Code(s): N17.9 - Acute kidney failure, unspecified (6) Congestive heart failure Current Visit: Yes Status: Acute Code(s): I50.9 - Heart failure, unspecified Qualifiers: Congestive heart failure type: unspecified congestive heart failure type Congestive heart failure chronicity: acute on chronic Qualified Code(s): I50.9 - Heart failure, unspecified (7) Obesity Current Visit: Yes Status: Acute Code(s): E66.9 - Obesity, unspecified Qualifiers: Obesity type: unspecified obesity type Obesity classification: adult class 2 (BMI 35 ? 39.9) Serious obesity comorbidity presence: unspecified whether serious comorbidity present Body mass index: BMI 38.0-38.9 Qualified Code(s) : E66.9 - Obesity, unspecified; Z68.38 - Body mass index (BMI) 38.0-38.9, adult - Assessment / Plan Additional Assessment/Plan Details: Given the complexity of this potential congestive heart failure situation and the nondiagnostic nature of the echocardiogram, I think we really need a right heart catheterization, but would be best to organize this so that we can determine dilator response. I spoke with cardiology in [place], and they will get the patient in for an outpatient right heart catheterization to be done next week. The edema could also be side effect from steroids and prednisone, but I don't know that this is truly the case I think it's more likely cor pulmonale. Given that though, I think we should reduce the prednisone to 5 mg a day. Patient has been on prednisone for a while so may be a slow taper to get him off of this. He states that he does not notice a difference in his breathing on prednisone. Stop telemetry monitoring. We'll try some wraps or GARCIA hose today. The kidneys do not look like they are tolerating Lasix very well looks like his intravascular space is becoming too dry with Lasix therapy with increase in his BUN. Hopefully, off all goes well, discharge tomorrow. Hold off on DARLINE inhibitor or arm, and replace with Norvasc. May benefit from daily Zithromax to help prevent exacerbations. Also would definitely benefit from long acting muscarinic antagonists (LAMA) and LABA ( long acting beta agonist) therapy, however when I reviewed his record, he did not qualify for this from an insurance standpoint.
--- NOTE | 2017-08-01 23:37 | EKG ---
[address] [address] Measurements Intervals [place] Rate: 83 P: 92 NH: 157 QRS: 64 QRSD: 83 T: 90 QT: 358 QTc: 398 Interpretive Statements SINUS RHYTHM Compared to ECG 07/29/2017 11:44:58 No significant changes Electronically Signed On 08-02-17 14:39:00 MST by Donell Cardenas [email or web address]
[2017-08-02] MEDS: IPRATROPIUM/ALBUTEROL SULFATE 3 ML NEB NEB SCH ×3 (06:18→10:41)
[2017-08-02 06:20] VITALS: O2SAT 93
[2017-08-02 07:09] VITALS: BP 140/83; TEMP 97
[2017-08-02] MEDS: VENLAFAXINE XR 75 MG CAP PO SCH (08:15)
[2017-08-02] MEDS: ASCORBIC ACID 500 MG TABLET PO SCH (08:16)
[2017-08-02] MEDS: ASPIRIN EC 81 MG TABLET PO SCH (08:16)
[2017-08-02] MEDS ORDERED: predniSONE 5 MG TABLET PO SCH (09:00)
[2017-08-02 10:43] VITALS: RESP 18
--- NOTE | 2017-08-02 11:31 | DCSUMMARY ---
Hospitalization Summary Admit Date: 07/27/2017 Discharge Date: 08/02/17 Primary Diagnosis:: cor pulmonale, acute on chronic Secondary Diagnosis:: COPD exacerbation Hospital Course: This very pleasant 72-year-old male that came in with evidence of COPD exacerbation and cor pulmonale. His COPD exacerbation resolved with antibiotics and steroids, but the cor pulmonale component persisted, evidenced by peripheral edema. It is not clear if he has significant right heart failure or not by his echocardiogram as it was fairly nondiagnostic. Although symptoms of COPD exacerbation improved, and his shortness of breath is at his baseline, we felt that it would be best to get him set up for a right heart catheterization to quantify his pulmonary hypertension to hopefully help better manage and direct therapy. I made some arrangements with the nailing machine feeder in [place] to have that done on an outpatient basis next week. His edema could also be related to side effect from prednisone. He states that he does not have any improvement in his breathing on prednisone to me so we will try to get him off of that. We are going down to a 5 mg dose now and the patient will discuss further with his primary physician, Dr. Marino. We did try diuresis with Lasix, but BUN went significantly up showing some signs of intravascular depletion. Even with lowering doses of Lasix his BUN continued to climb, so this was not tolerated by the patient. No complaints of chest pain, worsened shortness breath, or other issues, patient is ready to go home. Assessment and Plan: 1. As per discharge assessments noted 2. Disposition: Patient is discharged home. 3. Condition on discharge, stable and improved. 4. Diet: regular diet 5. Activities: resume normal activities 6. Follow-Up: 1. Dr. Marino in one week 2. 7. Medications at the Time of Discharge: Home Medications 3 Medication Instructions Recorded Confirmed Type Albuterol Sulfate [Ventolin Hfa] 2 puff INH Q4H PRN #1 inh 01/18/17 07/27/17 Rx venlafaxine ER 150 mg 150 mg PO QDAY #90 cap 02/06/17 07/27/17 Clinic capsule,extended release 24 hr aspirin 81 mg tablet,delayed 81 mg PO QDAY tab 05/07/17 07/27/17 History release ibuprofen 800 mg tablet 800 mg PO BID PRN #60 tab 06/13/17 07/27/17 Rx ipratropium-albuterol 0.5 mg-3 3 ml INH Q4H PRN #180 ml 06/13/17 07/27/17 Rx mg(2.5 mg base)/3 mL nebulization soln Fluticasone Furoate [Arnuity 200 mcg IH PRN 07/27/17 07/27/17 History Ellipta] Linaclotide [Linzess] 145 mcg PO DAILY 07/27/17 07/27/17 History Amlodipine Besylate [Norvasc] 10 mg PO DAILY #90 tab 08/02/17 Rx Ascorbic Acid [Vitamin C] 1,000 mg PO DAILY #30 tab 08/02/17 Rx predniSONE Tab [Deltasone Tab] 5 mg PO DAILY #30 tab 08/02/17 Rx 8. Time, care, counseling and coordination of care for this discharge is greater than 30 minutes. Exam - Vitals Vital Signs: Vital Signs Temperature 97 F Temperature Source Temporal Artery Scan Pulse Rate [Bilateral Radial] 95 Pulse Rate [Apical] 88 Pulse Rate [Pulse Oximeter] 85 Pulse Rate 92 Respiratory Rate 18 Blood Pressure [Left Arm] 140/83 Pulse Ox 93 Oxygen Flow Rate 3 Oxygen Delivery Method Nasal Cannula Height 6 ft 2 in Weight 298 lb 8 oz - General General Appearance: No Acute Distress, Cooperative - Head Head Exam: Normal Inspection, Normocephalic, Atraumatic - Respiratory Respiratory Exam: POSITIVE: Breathing Non Labored, Wheezes - Cardiovascular Cardiovascular Exam: POSITIVE: RRR, No Murmur, No Clicks, No Gallops, No Rubs, No JVD - GI/Abdominal GI/Abdominal Exam: POSITIVE: Normal Bowel Sounds, Non Tender, Non Distended, Soft - Extremities Extremities Exam: POSITIVE: No Cyanosis Present, +2 Edema - Neurological Neurological Exam: POSITIVE: Alert, Oriented x 3, No Facial Droop, Speech Intact / Clear, Moves All Extremities Equally - Psychiatric Psychiatric Exam: POSITIVE: Normal Affect, Normal Mood Data Peritnent Studies: 07/31/17 08/01/17 08/01/17 04:30 04:50 04:50 WBC 14.60 H Hgb 14.6 Hct 45.7 Plt Count 182 Sodium 142 Potassium 4.6 Chloride 104 Carbon Dioxide 28 Anion Gap 10 BUN 48 H Creatinine 1.3 Estimated GFR 55 Glucose 81 Calcium 9.3 Total Bilirubin 0.2 L AST 26 ALT 50 Alkaline Phosphatase 80 NT-Pro-B Natriuret Pep 251 H Total Protein 5.7 L Albumin 3.1 L Globulin 2.[address] [facility] [place] [address] PH: [phone] FAX: [phone] ~DIAGNOSTIC IMAGING REPORT~ Patient: LOUISE CARLSON : 1945 Sex: M Age: 72 Exam Name: CT Chest WO Contrast Exam Date: 07/28/17 Report # : [id number] CPT Code: 97823 EMR/MR #: [id number] Ordering: WILFRID MONIQUE Admiting: CATRACHITO WILSON MD. Primary: Ronen Marino MD Attending: CATRACHITO WILSON MD. Signed EXAM: CT Chest Without Intravenous Contrast CLINICAL HISTORY: ITS.REASON hypoxia Physician Notes: Tech Comments: TECHNIQUE: Axial computed tomography images of the chest without intravenous contrast. COMPARISON: 01/11/17 FINDINGS: Upper lobe-predominant emphysema similar to prior study. There is also bronchial wall thickening suggesting bronchitis. This has progressed significantly in the interval. RUL calcified granulomas. There is thoracic aortic atherosclerosis. No aneurysm. Multiple bilateral renal cysts. Largest incompletely assessed cyst to the mid left kidney measures at least 4.3 cm. Spinal hyperostosis. No acute fracture. Left shoulder arthroplasty. IMPRESSION: Progressive bronchial wall thickening suggesting worsening bronchitis. Redemonstrated emphysema. Incidental findings as detailed above. Dictated By: Patient Problems - Patient Problem List (1) COPD with acute exacerbation Current Visit: No Status: Acute Code(s): J44.1 - Chronic obstructive pulmonary disease with (acute) exacerbation Category: Medical (2) Cor pulmonale (chronic) Current Visit: Yes Status: Acute Code(s): I27.81 - Cor pulmonale (chronic) Category: Medical (3) Hypertension Current Visit: Yes Status: Chronic Comment: Same medication Code(s): I10 - Essential (primary) hypertension Qualifiers: Hypertension type: essential hypertension Qualified Code(s): I10 - Essential (primary) hypertension Category: Medical (4) Depression Current Visit: Yes Status: Chronic Code(s): F32.9 - Major depressive disorder, single episode, unspecified Qualifiers: Depression Type: other depression Qualified Code(s): F32.89 - Other specified depressive episodes Category: Medical (5) Congestive heart failure Current Visit: Yes Status: Acute Code(s): I50.9 - Heart failure, unspecified Qualifiers: Congestive heart failure type: unspecified congestive heart failure type Congestive heart failure chronicity: acute on chronic Qualified Code(s): I50.9 - Heart failure, unspecified Category: Medical (6) Obesity Current Visit: Yes Status: Acute Code(s): E66.9 - Obesity, unspecified Qualifiers: Obesity type: unspecified obesity type Obesity classification: adult class 2 (BMI 35 ? 39.9) Serious obesity comorbidity presence: unspecified whether serious comorbidity present Body mass index: BMI 38.0-38.9 Qualified Code(s) : E66.9 - Obesity, unspecified; Z68.38 - Body mass index (BMI) 38.0-38.9, adult Category: Medical
== END 2017-08-02 13:07 | disposition home or self-care (01) | DRG 175 ==
LOC: ER 02:39 → MED/SURG 04:14
PROVIDERS: ADMIT Internal Medicine; ATTEND Internal Medicine

== ENCOUNTER 2017-09-22 09:20 | Inpatient (IN) ==
[2017-09-22] MEDS ORDERED: Sodium Chloride 0.9% 1,000 ML PRIMARY IV ONE (09:28)
[2017-09-22] MEDS ORDERED: ONDANSETRON 4 MG/2 ML VIAL IVP ONE (09:28)
[2017-09-22] MEDS ORDERED: Pantoprazole Inj 40 MG in Normal Saline Flush 10 ML IVP ONE (09:28)
[2017-09-22] MEDS ORDERED: NORMAL SALINE 10 ML SYRINGE FLUSH IVP PRN ×2 (09:28→13:16)
[2017-09-22] MEDS ORDERED: ASPIRIN 81 MG (BABY) CHEWABLE TABLET PO ONE (09:28)
--- NOTE | 2017-09-22 09:31 | EKG ---
[address] [address] Measurements Intervals [place] Rate: 128 P: 72 VT: 151 QRS: 31 QRSD: 81 T: 73 QT: 303 QTc: 379 Interpretive Statements SINUS TACHYCARDIA ABNORMAL RHYTHM ECG Compared to ECG 08/01/2017 22:08:30 Sinus rhythm no longer present Electronically Signed On 09-22-17 17:08:16 MDT by Donell Cardenas [id number]
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
[2017-09-22] MEDS ORDERED: IPRATROPIUM/ALBUTEROL SULFATE 3 ML NEB NEB ONE ×2 (09:39→09:43)
[2017-09-22] MEDS ORDERED: ACETAMINOPHEN 500 MG TABLET PO ONE (09:40)
[2017-09-22 09:43] LABS: BASOPHILS # (AUTO) 0 10*3/UL; BASOPHILS % (AUTO) 0 % (0-1); EOSINOPHILS # (AUTO) 0.04 10*3/UL; EOSINOPHILS % (AUTO) 0.3 % (0-8); Hematocrit [HCT] 49.1 % (42.0-52.0); Hemoglobin [HGB] 16.5 g/dL (14.0-18.0); MEAN CORPUSCULAR HEMOGLOBIN 29.6 PG (27-31); MEAN CORPUSCULAR HGB CONC 33.6 g/dL (33-37); MEAN CORPUSCULAR VOLUME 88.2 FL (80-90); MEAN PLATELET VOLUME 11.3 FL (7.4-12.2); MONOCYTES # (AUTO) 0.53 10*3/UL (0.3-0.8); MONOCYTES % (AUTO) 4.3 % (5-15); NEUTROPHILS # (AUTO) 11.34 10*3/UL; NEUTROPHILS % (AUTO) 92.8 % (50-80); RED BLOOD COUNT 5.57 10^6/uL (4.70-6.10)
[2017-09-22 09:47] LABS: VENOUS PH 7.43 (7.32-7.42)
[2017-09-22 09:48] LABS: SERUM ALBUMIN 4.4 g/dL (3.5-4.8)
[2017-09-22 09:58] LABS: PLATELET MORPHOLOGY COMMENT NORMAL MORPHOLOGY (NORM); RBC MORPHOLOGY COMMENT NORMAL MORPHOLOGY (NORM); WBC MORPHOLOGY COMMENT NORMAL MORPHOLOGY (NORM)
--- NOTE | 2017-09-22 10:15 | DI ---
EXAM: XR Chest, 1 View CLINICAL HISTORY: Chest Pain TECHNIQUE: Frontal view of the chest. COMPARISON: Chest x-ray dated 09/12/17. CT the chest dated 07/28/17. FINDINGS: Lungs: Unremarkable. No focal consolidation. Pleural space: Unremarkable. No pneumothorax. Heart: Unremarkable. No cardiomegaly. Mediastinum: Unremarkable. Bones/joints: Partial visualization of left shoulder replacement. Tubes, lines and devices: EKG leads overlie the thorax. IMPRESSION: No acute findings.
--- NOTE | 2017-09-22 11:50 | DI ---
EXAM: CT Abdomen and Pelvis With Intravenous Contrast CLINICAL HISTORY: vomiting, fever, elevated wbc TECHNIQUE: Axial computed tomography images of the abdomen and pelvis with intravenous contrast. COMPARISON: CT of the abdomen and pelvis dated 06/28/08 FINDINGS: Lung bases: Unremarkable. No mass. No consolidation. ABDOMEN: Liver: Unremarkable. No mass. Gallbladder and bile ducts: Unremarkable. No calcified stones. No ductal dilation. Pancreas: Unremarkable. No mass. No ductal dilation. Spleen: Unremarkable. No splenomegaly. Adrenals: Unremarkable. No mass. Kidneys and ureters: Bilateral simple-appearing renal cortical and peripelvic cysts. Largest cyst measures 5.3 cm in the left lower renal pole. Stomach and bowel: Mild fluid distention of large and small bowel loops with air-fluid levels without wall thickening or abnormal diameter. Mild diverticulosis noted in the descending colon. Appendix: No findings to suggest acute appendicitis. PELVIS: Bladder: Unremarkable. No mass. Reproductive: The prostate gland and seminal vesicles appear unremarkable as visualized. ABDOMEN and PELVIS: Intraperitoneal space: Unremarkable. No free air. No significant fluid collection. Bones/joints: Mild multilevel degenerative changes throughout the visualized spine. No acute fracture. No dislocation. Soft tissues: Small fat-containing direct left inguinal hernia. Vasculature: Unremarkable. No abdominal aortic aneurysm. Lymph nodes: Unremarkable. No enlarged lymph nodes. IMPRESSION: 1. Mild fluid distention of large and small bowel loops with air-fluid levels without wall thickening or abnormal diameter. This suggests enterocolitis and/or diarrheal disease. No evidence of obstruction. 2. Bilateral simple-appearing renal cortical and peripelvic cysts. Largest cyst measures 5.3 cm in the left lower renal pole.
--- NOTE | 2017-09-22 11:58 | DI ---
EXAM: CT Angiography Chest Without and With Intravenous Contrast CLINICAL HISTORY: chest pain, elevated d-dimer TECHNIQUE: Axial computed tomographic angiography images of the chest without and with intravenous contrast using pulmonary embolism protocol. MIP reconstructed images were created and reviewed. Coronal and sagittal reformatted images were created and reviewed. Axial reformatted images were created and reviewed. COMPARISON: No relevant prior studies available. FINDINGS: Pulmonary arteries: Possible nonocclusive central luminal filling defects within the pulmonary arterial branches to the right middle lobe (series 3, images 58-64). Remaining pulmonary arteries are well- opacified. Aorta: No acute findings. No thoracic aortic aneurysm. Lungs: Centrilobular emphysematous changes most prominent in the upper lung zones. Minimal dependent atelectasis in the lung bases. Pleural space: Unremarkable. No significant effusion. No pneumothorax. Heart: Unremarkable. No cardiomegaly. No significant pericardial effusion. No evidence of RV dysfunction. Bones/joints: No acute fracture. No dislocation. Soft tissues: Unremarkable. Lymph nodes: Unremarkable. No enlarged lymph nodes. IMPRESSION: 1. Findings suggesting small age-indeterminate nonocclusive PE within pulmonary arterial branches to the right middle lobe. 2. Centrilobular emphysematous changes most prominent in the upper lung zones. [employer] 09/22/17 12:01 Call Doctor Regarding Pulmonary Embolism, called See notes
[2017-09-22] MEDS ORDERED: ENOXAPARIN SODIUM 120 MG/0.8 ML SYRINGE SUBCUT ONE (12:19)
--- NOTE | 2017-09-22 12:33 | DI ---
EXAM: XR Left Knee, 3 views CLINICAL HISTORY: fall TECHNIQUE: Three views of the left knee. COMPARISON: No relevant prior studies available. FINDINGS: Bones/joints: No visible displaced fracture. No dislocation. No osseous erosions. Mild degenerative narrowing in the medial tibiofemoral compartment. Incidental note of a tiny fabella posterior to the knee. Small quadriceps and patellar tendon enthesophyte is noted. Visualized joint spaces otherwise appears unremarkable. Soft tissues: Unremarkable. IMPRESSION: 1. No acute findings. 2. Mild degenerative joint space narrowing most prominent in the medial tibiofemoral compartment..
--- NOTE | 2017-09-22 12:34 | DI ---
EXAM: XR Left Tibia and Fibula, 2 Views CLINICAL HISTORY: fall, left knee pain TECHNIQUE: Frontal and lateral views of the left tibia and fibula. COMPARISON: No relevant prior studies available. FINDINGS: Bones/joints: Unremarkable. No visible displaced fracture. No dislocation. No osseous erosions. Visualized joint spaces appear unremarkable. Soft tissues: Unremarkable. No radiopaque foreign body. IMPRESSION: Unremarkable left tibia and fibula x-rays.
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
[2017-09-22] MEDS ORDERED: ONDANSETRON 4 MG/2 ML VIAL IVP PRN (13:16)
[2017-09-22] MEDS ORDERED: LIDOCAINE W/ SODIUM BICARB 0.5 ML SYR SUBD PRN (13:16)
[2017-09-22] MEDS ORDERED: IPRATROPIUM/ALBUTEROL SULFATE 3 ML NEB NEB PRN (13:26)
[2017-09-22] MEDS: Sodium Chloride 0.9% 1,000 ML PRIMARY IV SCH ×2 (13:40→22:16)
[2017-09-22] MEDS: ASCORBIC ACID 500 MG TABLET PO SCH (13:53)
[2017-09-22] MEDS: VENLAFAXINE XR 75 MG CAP PO SCH (14:05)
[2017-09-22] MEDS: Ertapenem Inj 1 GM in Sodium Chloride 0.9% 100 ML IV SCH (14:06)
[2017-09-22] MEDS: ACETAMINOPHEN 325 MG TABLET PO PRN (19:52)
[2017-09-22] MEDS: Apixaban 5 MG TABLET PO SCH (22:15)
[2017-09-23] MEDS: ACETAMINOPHEN 325 MG TABLET PO PRN ×2 (04:18→18:31)
[2017-09-23] MEDS: Sodium Chloride 0.9% 1,000 ML PRIMARY IV SCH ×3 (05:41→16:47)
[2017-09-23 06:43] LABS: BASOPHILS # (AUTO) 0 10*3/UL; BASOPHILS % (AUTO) 0 % (0-1); EOSINOPHILS # (AUTO) 0.13 10*3/UL; EOSINOPHILS % (AUTO) 1.8 % (0-8); Hematocrit [HCT] 43.6 % (42.0-52.0); Hemoglobin [HGB] 14.1 g/dL (14.0-18.0); LYMPHOCYTES # (AUTO) 1.02 10*3/uL; MEAN CORPUSCULAR HEMOGLOBIN 29.3 PG (27-31); MEAN CORPUSCULAR HGB CONC 32.3 g/dL (33-37); MEAN CORPUSCULAR VOLUME 90.5 FL (80-90); MEAN PLATELET VOLUME 11.7 FL (7.4-12.2); NEUTROPHILS # (AUTO) 5.52 10*3/UL; NEUTROPHILS % (AUTO) 76.9 % (50-80); RED BLOOD COUNT 4.82 10^6/uL (4.70-6.10)
[2017-09-23 07:03] LABS: PLATELET MORPHOLOGY COMMENT NORMAL MORPHOLOGY (NORM); RBC MORPHOLOGY COMMENT NORMAL MORPHOLOGY (NORM); WBC MORPHOLOGY COMMENT NORMAL MORPHOLOGY (NORM)
[2017-09-23 07:12] LABS: BLOOD UREA NITROGEN 18 mg/dL (7-22); BUN/CREATININE RATIO 16.36 (6-20); SERUM ALBUMIN 3.6 g/dL (3.5-4.8)
--- NOTE | 2017-09-23 07:50 | PDOC(PROG) ---
Date and Time of Service: 09/23/2017 7:47 AM Interval History: Subjective Patient's feels better today, no more vomiting no diarrhea he is tolerating diet. No abdominal pain. He said he did have some pain in the right side of the chest last night was taking deep breath not present now. Objective : Data - Labs CBC and BMP: 09/23/17 05:00 09/23/17 05:00 Objective : Exam - General General Appearance: No Acute Distress, Cooperative, Obese - Head Head Exam: Normal Inspection, Atraumatic - Eye Eye Exam: Normal Appearance - ENT ENT Exam: Normal Exam - Neck Neck Exam: Normal Inspection - Respiratory Respiratory Exam: Clear to Auscultation - Bilaterally - Cardiovascular Cardiovascular Exam: RRR - GI/Abdominal GI/Abdominal Exam: Normal Bowel Sounds, Non Tender, Non Distended, Soft, No Organomegaly - Rectal Rectal Exam: Deferred - External Exam: Deferred - Extremities Extremities Exam: Normal Inspection, Pedal Edema - Back Back Exam: Normal Inspection - Neurological Neurological Exam: Alert, Oriented x 3, Normal Gait, CN II-XII Intact, No Facial Droop, Speech Intact / Clear, Moves All Extremities Equally - Psychiatric Psychiatric Exam: Normal Affect - Integumentary Integumentary Exam: Normal Color Assessment and Plan - Patient Problems (1) Pulmonary embolus Current Visit: Yes Status: Acute Comment: Continue eliquis, he will have ultrasound of his legs today. I will discuss with the resource management planner his insurance coverage. Code(s): I26.99 - Other pulmonary embolism without acute cor pulmonale (2) Gastroenteritis Current Visit: Yes Status: Acute Comment: Seems to be resolved. I did start him on antibiotics yesterday we'll wait for the blood culture results if negative I think I'll DC the antibiotics. There is no more fever, he is not tachycardic anymore blood pressure is better. I think we'll cut back on his fluid. The acidosis also improved. Continue holding the metoprolol Code(s): K52.9 - Noninfective gastroenteritis and colitis, unspecified (3) COPD (chronic obstructive pulmonary disease) Current Visit: No Status: Acute Comment: Continue bronchodilator Code(s): J44.9 - Chronic obstructive pulmonary disease, unspecified Qualifiers: COPD type: emphysema Emphysema type: unspecified Qualified Code(s): J43.9 - Emphysema, unspecified; J43.9 - Emphysema, unspecified; J43.9 - Emphysema, unspecified; J43.9 - Emphysema, unspecified (4) Depression Current Visit: No Status: Chronic Comment: Same medications Code(s): F32.9 - Major depressive disorder, single episode, unspecified Qualifiers: Depression Type: other depression Qualified Code(s): F32.89 - Other specified depressive episodes
[2017-09-23] MEDS: VENLAFAXINE XR 75 MG CAP PO SCH (09:14)
[2017-09-23] MEDS: ASCORBIC ACID 500 MG TABLET PO SCH (09:14)
[2017-09-23] MEDS: Apixaban 5 MG TABLET PO SCH ×2 (09:14→20:14)
--- NOTE | 2017-09-23 12:59 | DI ---
US Up/Low Extremity Veins B/L,09/23/2017 8:00 AM: Clinical History: Pulmonary embolism. Previous Exam: December 07, 2016 Findings: Multiple grayscale and color Doppler sonographic images are obtained through the deep veins of both l ower extremities, and demonstrate complete coaptation upon graded compression throughout. There is no evidence of echogenic thrombus. There is normal respiratory variation and augmentation. Impression: No evidence of deep venous thrombosis.
[2017-09-23] MEDS: Ertapenem Inj 1 GM in Sodium Chloride 0.9% 100 ML IV SCH (13:57)
[2017-09-23] MEDS: Metoprolol TARTRATE Tab 25 MG TAB PO SCH (20:14)
[2017-09-24 05:45] LABS: BLOOD UREA NITROGEN 13 mg/dL (7-22)
[2017-09-24] MEDS: Metoprolol TARTRATE Tab 25 MG TAB PO SCH ×2 (08:14→20:26)
[2017-09-24] MEDS: VENLAFAXINE XR 75 MG CAP PO SCH (08:14)
[2017-09-24] MEDS: ASCORBIC ACID 500 MG TABLET PO SCH (08:14)
[2017-09-24] MEDS: Apixaban 5 MG TABLET PO SCH ×2 (08:14→20:26)
--- NOTE | 2017-09-24 15:01 | PDOC(PROG) ---
Date and Time of Service: 09/24/2017, 1455 Interval History: No complaints of chest pain. Still had some vomiting overnight. No diarrhea. In terms of anticoagulant for pulmonary emboli, he is willing to do eliquis as the initial cost as per IC due to lack of deductible being met and then he will meet his deductible and the douglas of the medication would not be prohibitive for him. He does not want to do Coumadin. I did discuss risks and benefits: The patient and I spoke in depth regarding Coumadin versus Xarelto versus Eliquis, including all risks and benefits, risks being bleeding complications and possible pitfalls of not being able to reverse bleeding with antidotes, and benefits cream treatment of blood clot, lack of drug interactions, and ease of therapy in terms of lab monitoring. The patient chooses Eliquis. Objective : Data - Labs CBC and BMP: 09/23/17 05:00 09/24/17 05:26 Objective : Exam - General General Appearance: No Acute Distress, Cooperative Additional General Exam Details: Vital Signs - Last Taken Temperature 97.4 F 09/24/17 11:01 Pulse Rate 58 L 09/24/17 11:01 Respiratory Rate 20 09/24/17 11:01 Blood Pressure 126/56 09/24/17 11:01 Pulse Ox 95 09/24/17 11:01 - Eye Eye Exam: No Scleral Icterus - ENT ENT Exam: Mucous Membranes Moist - Respiratory Respiratory Exam: Breathing Non Labored, Coarse Breath Sounds - Cardiovascular Cardiovascular Exam: RRR, No Murmur, No Clicks, No Gallops, No Rubs, No JVD - GI/Abdominal GI/Abdominal Exam: Normal Bowel Sounds, Non Tender, Non Distended, Soft - Extremities Extremities Exam: No Cyanosis Present, Clubbing Present, +1 Edema - Neurological Neurological Exam: Alert, Oriented x 3, No Facial Droop, Speech Intact / Clear, Moves All Extremities Equally Assessment and Plan - Patient Problems (1) Pulmonary embolus Current Visit: Yes Status: Acute Code(s): I26.99 - Other pulmonary embolism without acute cor pulmonale Qualifiers: Pulmonary embolism type: other Chronicity: acute Acute cor pulmonale presence: without acute cor pulmonale Qualified Code(s): I26.99 - Other pulmonary embolism without acute cor pulmonale (2) Gastroenteritis Current Visit: Yes Status: Acute Code(s): K52.9 - Noninfective gastroenteritis and colitis, unspecified (3) COPD (chronic obstructive pulmonary disease) Current Visit: No Status: Acute Code(s): J44.9 - Chronic obstructive pulmonary disease, unspecified Qualifiers: COPD type: emphysema Emphysema type: unspecified Qualified Code(s): J43.9 - Emphysema, unspecified; J43.9 - Emphysema, unspecified; J43.9 - Emphysema, unspecified; J43.9 - Emphysema, unspecified (4) Depression Current Visit: No Status: Chronic Code(s): F32.9 - Major depressive disorder , single episode, unspecified Qualifiers: Depression Type: other depression Qualified Code(s): F32.89 - Other specified depressive episodes - Assessment / Plan Additional Assessment/Plan Details: Continue eliquis for 6 months, and then consider lifetime use due to significant risk from underlying COPD. Check PSA in morning. We'll arrange for a screening colonoscopy as he has not had one in over 20 years in the next few months. He also was waiting on knee surgery. I like to delay that for at least 3 months of therapy. Preferably 6. Continue oxygen therapy for COPD. Fevers are resolved and I think there were likely related to the pulmonary emboli. I will go ahead and stop Invanz at this point. Overall, I think this is an unprovoked blood clot, but the patient does have risk factors in that he is 72, overweight, and has COPD.
[2017-09-24 16:43] LABS: DRVVT SCREEN RATIO 1.6 ratio
[2017-09-24 16:44] LABS: FIBRIONGEN EQUIVALENT UNITS 1.06 mcg/mL FEU; THROMBIN TIME 22 sec
[2017-09-24 16:45] LABS: SOLUBLE FIBRIN MONOMER <8 mcg/mL
[2017-09-25] MEDS: Metoprolol TARTRATE Tab 25 MG TAB PO SCH (09:10)
[2017-09-25] MEDS: Apixaban 5 MG TABLET PO SCH (09:10)
[2017-09-25] MEDS: VENLAFAXINE XR 75 MG CAP PO SCH (09:10)
[2017-09-25] MEDS: ASCORBIC ACID 500 MG TABLET PO SCH (09:10)
--- NOTE | 2017-09-25 11:35 | HOSP.PROG ---
HAS-BLED Score - HAS-BLED : Major Bleeding Risk Uncontrolled Hypertension (>160 mmHg Systolic): No Renal Disease (Cr > 2.26 mg/dl, Dialysis, Transplant): No Liver Disease ( Cirrhosis or bilirubin >2x normal w/ AST/ALT: No Stroke History: No Prior major bleeding or predisposition to bleeding: No Labile INR (Unstable/High INRs, time in therapeutic range: No Age >65: Yes Medication usage predisposing to bleeding: Yes (on aspirin) Alcohol use (>7 drinks/week): No (we are going to stop aspirin and continue with eliquis) HAS-BLED Score: 2 HAS-BLED Risk for Major Bleeding: Moderate
--- NOTE | 2017-09-25 11:55 | DCSUMMARY ---
Hospitalization Summary Admit Date: 09/22/2017 Discharge Date: 09/25/17 Primary Diagnosis:: pulmonary emboli Secondary Diagnosis:: Gastroenteritis Hospital Course: This very pleasant 72-year-old male that came in with complaints of shortness breath, fever, tachycardia, nausea or vomiting and diarrhea. He was admitted with a pulmonary emboli that was acute in the lungs, and also was felt to have a viral gastroenteritis. In terms of the gastroenteritis, the nausea and vomiting resolved, but diarrhea persisted intermittently. Studies were negative for Giardia, cryptosporidium, C. difficile. Stool culture still pending. Fevers have completely resolved. The patient was covered empirically with antibiotics for the first 48 hours of hospital stay but as he had no fevers, I stopped those yesterday. In terms of the blood clot, patient was placed on eliquis. After determining whether or not the patient could afford the medication the patient determined that he could afford the cost and we are using this for the next 6 months. Patient also had an anticoagulation/thrombophilia profile drawn and that is pending at this time. Back and be reviewed in the office. Overall, the patient has some risk factors in that he has COPD, has obesity, and is 72 years of age. He is probably high risk to the point where he should consider lifelong use of this preventative medication, and I recommended that, but this may change depending on what his primary physician desires. Today, other than the diarrhea intermittently he has no complaints of chest pain , shortness breath, nausea or vomiting and feels like he can take care of the diarrhea at home with antidiarrheals. Assessment and Plan: 1. As per discharge assessments noted 2. Disposition: Patient is discharged home. 3. Condition on discharge, stable and improved. 4. Diet: regular diet 5. Activities: resume normal activities 6. Follow-Up: 1. Dr. Marino in a week 2. 7. Medications at the Time of Discharge: Home Medications 3 Medication Instructions Recorded Confirmed Type ipratropium-albuterol 0.5 mg-3 3 ml INH Q4H PRN #180 ml 06/13/17 09/22/17 Rx mg(2.5 mg base)/3 mL nebulization soln ascorbic acid (vitamin C) 500 mg 1,000 mg PO QDAY tab 08/12/17 09/22/17 History tablet venlafaxine ER 150 mg 150 mg PO QAM #90 cap 08/12/17 09/22/17 Rx capsule,extended release 24 hr Metoprolol Tartrate 25 mg PO BID 09/22/17 09/22/17 History Apixaban [Eliquis] 5 mg PO BID #180 tab 09/25/17 Rx We are going to stop aspirin. The patient has a has bled score of moderate. 8. Time, care, counseling and coordination of care for this discharge is greater than 30 minutes. Exam - Vitals Vital Signs: Vital Signs Temperature 97 F Temperature Source Temporal Artery Scan Pulse Rate [Pulse Oximeter] 66 Pulse Rate [Telemetry] 58 Pulse Rate 65 Respiratory Rate 20 Blood Pressure [Right Arm] 146/85 Blood Pressure [Left Arm] 130/80 Blood Pressure 99/72 Pulse Ox 96 Oxygen Flow Rate 4 Oxygen Delivery Method Nasal Cannula Height 6 ft 2 in Weight 296 lb 11.2 oz - General General Appearance: No Acute Distress, Cooperative - Head Head Exam: Normal Inspection, Normocephalic, Atraumatic - Eye Eye Exam: POSITIVE: No Scleral Icterus - ENT ENT Exam: POSITIVE: Mucous Membranes Moist - Respiratory Respiratory Exam: POSITIVE: Clear to Auscultation - Bilaterally, Breathing Non Labored - Cardiovascular Cardiovascular Exam: POSITIVE: RRR, No Murmur, No Clicks, No Gallops, No Rubs, No JVD - GI/Abdominal GI/Abdominal Exam: POSITIVE: Normal Bowel Sounds, Non Tender, Non Distended, Soft - Extremities Extremities Exam: POSITIVE: No Clubbing Present, No Edema Present, No Cyanosis Present - Neurological Neurological Exam: POSITIVE: Alert, Oriented x 3, No Facial Droop, Speech Intact / Clear, Moves All Extremities Equally - Psychiatric Psychiatric Exam: POSITIVE: Normal Affect, Normal Mood Data Peritnent Studies: 09/22/17 09/22/17 09/25/17 18:00 18:00 04:36 PT 10.9 INR 1.03 1.1 APTT 34.1 Thrombin Time 22 sec Fibrinogen Pending Soluble Fibrin Monomer <8 mcg/ml D-Dimer (FEU) 1.06 mcg/ml feu D-Dimer Comment 530 ng/ml d-dimer LA dRVVT Confirm 50:50 1.6 ratio dRVVT Confirm Ratio 0.8 Protein C Activity 76% APC Ratio 2.9 APC Resistance Interp Pending Protein S Antigen 110% Antithrombin III Activ 82% PSA Screen 1.85 Prothrombin [id number] Mut Pending Prothrombin Mut Interp Pending Prothromb Gene Review Pending [facility] [place] [facility] Comment Pending [facility] [place] [facility] Perform Site Pending 09/23/17 09/24/17 05:00 05:26 WBC 7.18 Hgb 14.1 Hct 43.6 Plt Count 161 Sodium 144 Potassium 4.5 Chloride 109 Carbon Dioxide 22 L Anion Gap 13 BUN 13 Creatinine 1.0 Estimated GFR > 60 BUN/Creatinine Ratio 13.00 Glucose 95 Calculated Osmolality 297.0 H Calcium 8.1 L Procedures: CT scan of the chest results. MPRESSION: 1. Findings suggesting small age-indeterminate nonocclusive PE within pulmonary arterial branches to the right middle lobe. 2. Centrilobular emphysematous changes most prominent in the upper lung zones. Patient Problems - Patient Problem List (1) Pulmonary embolus Current Visit: Yes Status: Acute Code(s): I26.99 - Other pulmonary embolism without acute cor pulmonale Qualifiers: Pulmonary embolism type: other Chronicity: acute Acute cor pulmonale presence: without acute cor pulmonale Qualified Code(s): I26.99 - Other pulmonary embolism without acute cor pulmonale Category: Medical (2) Gastroenteritis Current Visit: Yes Status: Acute Code(s): K52.9 - Noninfective gastroenteritis and colitis, unspecified Category: Medical (3) COPD (chronic obstructive pulmonary disease) Current Visit: No Status: Acute Code(s): J44.9 - Chronic obstructive pulmonary disease, unspecified Qualifiers: COPD type: emphysema Emphysema type: unspecified Qualified Code(s): J43.9 - Emphysema, unspecified; J43.9 - Emphysema, unspecified; J43.9 - Emphysema, unspecified; J43.9 - Emphysema, unspecified Category: Medical (4) Depression Current Visit: No Status: Chronic Code(s): F32.9 - Major depressive disorder , single episode, unspecified Qualifiers: Depression Type: other depression Qualified Code(s): F32.89 - Other specified depressive episodes Category: Medical
[2017-09-25 12:41] VITALS: BP 118/55; RESP 22; TEMP 96.6; O2SAT 95
[2017-09-25 14:15] LABS: Coag Factor IX Activity 115 % (65 - 140)
[2017-09-25 14:17] LABS: COAG FACTOR XI ACTIVITY 75 % (55 - 150)
== END 2017-09-25 13:09 | disposition home or self-care (01) | DRG 391 ==
LOC: ER 09:20 → MED/SURG 12:31
PROVIDERS: ADMIT Internal Medicine; ATTEND Internal Medicine

== ENCOUNTER 2018-07-03 16:12 | Inpatient (IN) ==
[2018-07-03] MEDS ORDERED: LIDOCAINE W/ SODIUM BICARB 0.5 ML SYR SUBD PRN (16:16)
[2018-07-03] MEDS ORDERED: ONDANSETRON 4 MG/2 ML VIAL IVP PRN (16:16)
[2018-07-03] MEDS ORDERED: cefTRIAXone Inj 2 GM in Sodium Chloride 0.9% 100 ML IV SCH (17:00)
[2018-07-03 17:02] LABS: BASOPHILS # (AUTO) 0.01 10*3/UL; BASOPHILS % (AUTO) 0.1 % (0-1); EOSINOPHILS # (AUTO) 0.46 10*3/UL; EOSINOPHILS % (AUTO) 3.4 % (0-8); Hematocrit [HCT] 45.7 % (42.0-52.0); Hemoglobin [HGB] 14.9 g/dL (14.0-18.0); LYMPHOCYTES # (AUTO) 2.71 10*3/uL; MEAN CORPUSCULAR HEMOGLOBIN 29.3 PG (27-31); MEAN CORPUSCULAR HGB CONC 32.6 g/dL (33-37); MEAN PLATELET VOLUME 11.1 FL (7.4-12.2); MONOCYTES # (AUTO) 0.88 10*3/UL (0.3-0.8); MONOCYTES % (AUTO) 6.4 % (5-15); NEUTROPHILS # (AUTO) 9.64 10*3/UL; NEUTROPHILS % (AUTO) 70.2 % (50-80); RED BLOOD COUNT 5.08 10^6/uL (4.70-6.10)
[2018-07-03 17:03] LABS: PLATELET MORPHOLOGY COMMENT NORMAL MORPHOLOGY (NORM); RBC MORPHOLOGY COMMENT NORMAL MORPHOLOGY (NORM); WBC MORPHOLOGY COMMENT NORMAL MORPHOLOGY (NORM)
[2018-07-03 17:12] LABS: BLOOD UREA NITROGEN 22 mg/dL (7-22); BUN/CREATININE RATIO 16.92 (6-20)
--- NOTE | 2018-07-03 18:34 | EKG ---
[address] [id number] Measurements Intervals [place] Rate: 70 P: 75 IN: 176 QRS: 52 QRSD: 90 T: 88 QT: 392 QTc: 413 Interpretive Statements SINUS RHYTHM Compared to ECG 05/24/2018 09:31:44 No significant changes Electronically Signed On 07-04-18 08:56:08 MST by Donell Cardenas [email or web address]
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
[2018-07-03] MEDS ORDERED: ALBUTEROL SULFATE 2.5 MG/3 ML NEB PRN (19:04)
[2018-07-03] MEDS ORDERED: TIOTROPIUM BROMIDE 18 MCG CAPSULE INH ONE (19:04)
[2018-07-03] MEDS ORDERED: ARFORMOTEROL NEB SOLN 15 MCG/2 ML NEB ONE (19:07)
--- NOTE | 2018-07-03 19:45 | DI ---
CT ANGIOGRAM OF THE CHEST, 07/03/2018 5:48 PM : Clinical History: SOB, positive lupus anticoagulant. Previous Exam: 05/24/20 seen. Technique: Scans from base of neck to lung bases with IV contrast. Bolus tracking protocol was used f or timing the injection. Non-MIPS and MIPS sagittal/coronal images generated. IV Contrast: 75 mL of Isovue 370 Base of Neck: Normal. Nodes: Normal axillary, supraclavicular, mediastinal, and hilar lymph nodes. Heart: Normal. Calcifications are present in the right coronary artery. Aorta: Normal thoracic aorta. No aneurysm or dissection. Pulmonary Arteries: Normal. No pulmonary emboli or infarcts; no pulmonary hypertension. Lungs: No infiltrates. Bullae are present throughout the lungs and primarily in the upper lobes indic ating bullous emphysema. A modest amount of Amador A Amador B lines are present indicating mild to mo derate chronic interstitial lung disease. Effusion(s): None. Nodules: None. Bony Structures: Normal visualized portions of ribs, sternum, scapulae, clavicles, and shoulders. Nor mal visualized portions of thoracic spine. Limited Upper Abdomen: Normal adrenal glands and spleen. Normal limited views of liver and pancreas. READIN. Normal CTA of the chest. There are no pulmonary emboli or pulmonary infarcts. 2. Centrilobular emphysema with bullae. Mild to moderate severity of chronic interstitial pulmonary fibrosis.
--- NOTE | 2018-07-03 20:00 | DI ---
CT ABDOMEN SCAN WITH IV CONTRAST, 07/03/2018 5:48 PM : Clinical History: Right upper quadrant pain. Previous Exam: 12/12/2017 IV Contrast: 75 mL of Isovue 300. Oral Contrast: No oral contrast ordered. Rectal Contrast: No rectal contrast ordered. Lungs: No infiltrate or effusion. Liver: Normal. Gallbladder: Grossly normal. Adrenal Glands: Normal. Spleen: Normal. Pancreas: Normal. Kidneys: The right and left kidneys measure 104 and 109 mm, respectively. Both have multiple renal co rtical cysts as well as peripelvic cysts. No hydronephrosis or hydroureter. No renal or ureteral calc kong. The appearance of the kidneys is unchanged. Masses: None. Lymph Nodes: Normal. Ascites: No ascites. Free Air: None. Spine: Old T11 compression fracture. The lumbar spine shows degenerative change without compression f ractures. No blastic or lytic bony lesions noted. READING: Normal CT abdomen scan. There has been no significant interval change. CT PELVIS SCAN WITH IV CONTRAST, 07/03/2018 5:48 PM: Clinical History: See above. Previous Exam: None at this facility. Contrast: Same bolus used for CT scans of the abdomen. Masses: No masses or enhancing lesions. Ascites: None. Free Air: None. Lymph Nodes: No adenopathy. Appendix: Diminutive in size but normal. Small Bowel: Normal small bowel, terminal ileum, and ileocecal valve. Colon: Normal. Bladder: Normal. Hernias: None. Bony Pelvis: Normal sacrum, pelvic bones, and hips. READING: Normal CT scan of the pelvis with IV contrast. There has been no significant interval change.
[2018-07-03] MEDS: PANTOPRAZOLE 40 MG TABLET PO SCH (20:36)
[2018-07-03] MEDS: ACETAMINOPHEN 325 MG TABLET PO PRN (20:38)
[2018-07-03] MEDS ORDERED: Metoprolol TARTRATE Tab 25 MG TAB PO SCH (21:00)
[2018-07-04] MEDS: ACETAMINOPHEN 325 MG TABLET PO PRN ×3 (00:09→15:07)
[2018-07-04 05:04] LABS: BASOPHILS # (AUTO) 0.01 10*3/UL; BASOPHILS % (AUTO) 0.1 % (0-1); EOSINOPHILS # (AUTO) 0.42 10*3/UL; EOSINOPHILS % (AUTO) 4.1 % (0-8); Hematocrit [HCT] 45.4 % (42.0-52.0); Hemoglobin [HGB] 14.5 g/dL (14.0-18.0); LYMPHOCYTES # (AUTO) 2.71 10*3/uL; MEAN CORPUSCULAR HEMOGLOBIN 29.1 PG (27-31); MEAN CORPUSCULAR HGB CONC 31.9 g/dL (33-37); MEAN PLATELET VOLUME 11.4 FL (7.4-12.2); MONOCYTES # (AUTO) 0.76 10*3/UL (0.3-0.8); MONOCYTES % (AUTO) 7.4 % (5-15); NEUTROPHILS # (AUTO) 6.28 10*3/UL; NEUTROPHILS % (AUTO) 61.6 % (50-80); RED BLOOD COUNT 4.99 10^6/uL (4.70-6.10)
[2018-07-04 05:19] LABS: BLOOD UREA NITROGEN 20 mg/dL (7-22); BUN/CREATININE RATIO 14.28 (6-20)
[2018-07-04 05:20] LABS: PLATELET MORPHOLOGY COMMENT NORMAL MORPHOLOGY (NORM); RBC MORPHOLOGY COMMENT NORMAL MORPHOLOGY (NORM); WBC MORPHOLOGY COMMENT NORMAL MORPHOLOGY (NORM)
[2018-07-04] MEDS: ARFORMOTEROL NEB SOLN 15 MCG/2 ML NEB SCH ×2 (06:20→19:20)
[2018-07-04] MEDS: TIOTROPIUM BROMIDE 18 MCG CAPSULE INH SCH (06:22)
[2018-07-04] MEDS ORDERED: ARFORMOTEROL NEB SOLN 15 MCG/2 ML NEB SCH (07:00)
[2018-07-04] MEDS ORDERED: ENOXAPARIN SODIUM 40 MG/0.4 ML SYRINGE SUBCUT SCH (09:00)
[2018-07-04] MEDS: LISINOPRIL 5 MG TABLET PO SCH (10:08)
[2018-07-04] MEDS: GUAIFENESIN 600 MG TABLET PO SCH (10:08)
[2018-07-04] MEDS: PANTOPRAZOLE 40 MG TABLET PO SCH ×2 (10:08→20:43)
[2018-07-04] MEDS: VENLAFAXINE HCL XR 150 MG CAP PO SCH (10:08)
[2018-07-04] MEDS: ASCORBIC ACID Chewable 500 MG TABLET PO SCH (10:09)
--- NOTE | 2018-07-04 10:57 | PDOC(PROG) ---
Date of Service: 07/04/18 Time of Service: 10:51 Interval History: Still has some shortness of breath, only marginally better. The shoulder pain is still present in the left shoulder. I was able to get the laboratory studies from [facility] and he had a PJI study that was negative although he had a cell count that was elevated, polymorphonuclear cells were not suggestive of infection. I spoke with Dr. Grzegorz Galan in [place], and he told me that the culture was negative and there is no evidence to suggest that there is infection in this shoulder. Objective : Data - Labs CBC and BMP: 07/04/18 04:20 07/04/18 04:20 Assessment and Plan - Patient Problems (1) COPD exacerbation Current Visit: Yes Status: Acute Code(s): J44.1 - Chronic obstructive pulmonary disease with (acute) exacerbation (2) Acute cor pulmonale Current Visit: Yes Status: Acute Code(s): I26.09 - Other pulmonary embolism with acute cor pulmonale (3) GERD (gastroesophageal reflux disease) Current Visit: Yes Status: Acute Code(s): K21.9 - Gastro-esophageal reflux disease without esophagitis Qualifiers: Esophagitis presence: esophagitis presence not specified Qualified Code(s): K21.9 - Gastro-esophageal reflux disease without esophagitis (4) Anticardiolipin antibody positive Current Visit: Yes Status: Acute Code(s): R76.8 - Other specified abnormal immunological findings in serum (5) Generalized weakness Current Visit: Yes Status: Acute Code(s): R53.1 - Weakness (6) Status post total shoulder replacement Current Visit: Yes Status: Resolved Onset Date: ~05/2014 Qualifiers: Laterality: left Qualified Code(s): Z96.612 - Presence of left artificial shoulder joint (7) Hyperlipidemia Current Visit: Yes Status: Chronic Qualifiers: Hyperlipidemia type: pure hypercholesterolemia Qualified Code(s): E78.00 - Pure hypercholesterolemia, unspecified; E78.0 - Pure hypercholesterolemia (8) Benign hypertension Current Visit: Yes Status: Chronic (9) Obstructive sleep apnea syndrome Current Visit: Yes Status: Chronic Onset Date: 09/09/13 (10) History of pulmonary embolism Current Visit: Yes Status: Chronic Code(s): Z86.711 - Personal history of pulmonary embolism - Assessment / Plan Additional Assessment/Plan Details: Continuing Brovana and Spiriva. Ultimately, the patient should visit with the store assistant outpatient due to the pulmonary fibrosis to determine whether he would be a candidate for Imuran therapy or any other therapies to slow the process down. Breathing therapies, Zithromax, and I will add steroids today for COPD exacerbation. There is no evidence of blood clot at this time, so I think we should go ahead and hold off on anticoagulants therapy until we can repeat studies for phospholipid antibody syndrome. We have studies pending from this hospital stay drawn yesterday that we can interpret but criteria for the diagnosis is to have positive studies at least 12 weeks apart. The other option, as we are looking at antibodies is to consider placing the patient on Xarelto daily as a preventative medication. He is not interested in resuming Eliquis. I will present both options to the patient and see what he prefers to do. 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 I also sent and an MYRTLE, and studies to determine whether the patient might have lupus. He might benefit from visiting with the bracelet maker novelty. Labs in a.m. I will order PT and OT for shoulder as there is no evidence of infection and again I spoke with Dr. Grzegorz Galan regarding the studies.
[2018-07-04] MEDS: predniSONE Tab 20 MG TAB PO SCH (12:15)
--- NOTE | 2018-07-04 15:30 | PT.PROG ---
Progress Note Progress Note: S. Patient stated that he is having a lot of pain in his shoulder and doesn't feel up to doing much due to the pain. O. Patient received heat from nursing, then phono ultrasound and manual therapy to his left shoulder. He was left in his chair with alarm and call light. A. patient tolerated manual therapy well, he reported decrease in pain afterwards. Patient would continue to benefit from skilled therapy to increase strength, endurance and decrease pain. P. Continue POC.
--- NOTE | 2018-07-04 16:11 | PTI REPORT ---
Thank you for the referral of Blayne Salgado. He was seen on 07/04/18 for an inpatient evaluation secondary to weakness and left shoulder pain. SUBJECTIVE: The patient is a 73-year-old male who was admitted to the hospital yesterday secondary to some pneumonia symptoms and some fluid in his right lung. The patient is well known to us in therapy from orthopedic issues in the past. The patient is complaining of anterior shoulder pain on the left side. He states he has had three rotator cuff surgeries on that shoulder and none of them have really helped him too much. He is complaining of increasing left shoulder pain. The patient does live alone at home and does have two or three steps to get in and out of his house. PAST MEDICAL HISTORY: Past medical history can be found in the patient's medical record. OBJECTIVE FINDINGS: General observations: The patient is alert and oriented x3. He is very willing to participate in anything that is asked of him. Pain: The patient is complaining of anterior shoulder pain on the left side. Palpation reveals a very sore bicipital tendon. Flexion with resistive biceps does increase his symptoms as well on the left side. Range of motion: The patient demonstrates passive range of motion that is functional. Active range of motion is painful in flexion after 90 degrees and abduction. Strength: Resistive testing demonstrates 3/5 for strength in flexion, abduction, and internal/external rotation on the left side. Right shoulder strength is 2- /5 and is painful very quickly with any manual resistive testing, indicating a significant rotator cuff tear on the right shoulder. The patient demonstrates fair to fair minus core and trunk strength. Hip strength is fair minus. Both lower extremities demonstrate strength of 3/5. Sensation: The patient does have slightly decreased sensation of his ankles and feet. Bed mobility: The patient was able to come from supine to sit independently. Transfers: The patient was able to come from sit to stand independently. Ambulation: The patient was able to ambulate around the room with stand by assist x1 x50 feet. Endurance: The patient does fatigue quickly. ASSESSMENT: Weakness secondary to pneumonia like issues that brought him to the hospital. The patient has very acute left bicipital tendonitis; probably overworking to stabilize that anterior shoulder joint with possible partial tearing of that bicipital tendon. The patient does live alone at home and does have two or three steps to get in and out of his house. Short-Term Goals: To be met by discharge from inpatient: Patient will be able to ambulate 100 feet with least restrictive assistive device safely and independently. Patient will be able to ascend and descend 5 stairs safely and independently. Patient will increase lower extremity strength to 4/5. Long-Term Goals: To be met following discharge from inpatient: Patient will return home per prior level of function safely and independently. TREATMENT PLAN: Patient will be seen B.I.D during the week and one time per day over the weekend as an inpatient for general strengthening of uppers and lowers, transfers, sit to stands, and ambulatory techniques. INITIAL TREATMENT: Treatment today consisted of the initial evaluation activities only. KIKE
[2018-07-05] MEDS: ARFORMOTEROL NEB SOLN 15 MCG/2 ML NEB SCH ×2 (06:23→19:01)
[2018-07-05] MEDS: TIOTROPIUM BROMIDE 18 MCG CAPSULE INH SCH (06:24)
[2018-07-05] MEDS: ASCORBIC ACID Chewable 500 MG TABLET PO SCH (07:59)
[2018-07-05] MEDS: predniSONE Tab 20 MG TAB PO SCH (07:59)
[2018-07-05] MEDS: VENLAFAXINE HCL XR 150 MG CAP PO SCH (07:59)
[2018-07-05] MEDS: GUAIFENESIN 600 MG TABLET PO SCH (07:59)
[2018-07-05] MEDS: PANTOPRAZOLE 40 MG TABLET PO SCH ×2 (08:00→20:26)
[2018-07-05] MEDS: LISINOPRIL 5 MG TABLET PO SCH (08:00)
[2018-07-05] MEDS: Rivaroxaban Tab 10 MG TAB PO SCH (08:00)
--- NOTE | 2018-07-05 11:21 | PT.PROG ---
Progress Note Progress Note: S. Patient stated he is feeling much better than yesterday. O. Patient ambulated 175 feet to the therapy gym where he had heat to his shoulder while on the nu-step x 15 minutes, then used the arm bike x 8 minutes. patient then had a phono ultrasound and manual therapy to his left shoulder and ambulated 175 feet back to his room where He was left in his chair with call light. A. patient tolerated manual therapy well, he was able to ambulate with stand by guard assist, and verbal cues to slow down, Patient did report slight pain after arm bike however not as bad as yesterday's pain. Patient would benefit from skilled therapy to increase mobility and safety at this time. P. Continue POC.
--- NOTE | 2018-07-05 12:46 | PDOC(PROG) ---
Date of Service: 07/05/18 Time of Service: 12:41 Interval History: No chest pain. Shortness breath persists but is slightly better than admission. Left shoulder pain is better. I spoke with Steph De Paz PA-C, and patient has follow-up on his shoulder next week. It is not clear if he will need a redo procedure. The patient does say that heat really helps. Objective : Data - Labs CBC and BMP: 07/04/18 04:20 07/04/18 04:20 Objective : Exam - General General Appearance: No Acute Distress, Cooperative Additional General Exam Details: Vital Signs - Last Taken Temperature 97.4 F 07/05/18 11:31 Pulse Rate 94 07/05/18 11:31 Respiratory Rate 20 07/05/18 11:31 Blood Pressure 172/78 07/05/18 11:31 Pulse Ox 96 07/05/18 11:31 - Eye Eye Exam: No Scleral Icterus - ENT ENT Exam: Mucous Membranes Moist - Neck Neck Exam: JVP is not Raised - Respiratory Respiratory Exam: Clear to Auscultation - Bilaterally, Breathing Non Labored - Cardiovascular Cardiovascular Exam: RRR, No Murmur, No Clicks, No Gallops, No Rubs, No JVD - GI/Abdominal GI/Abdominal Exam: Normal Bowel Sounds, Non Tender, Non Distended, Soft - Extremities Extremities Exam: No Clubbing Present, No Cyanosis Present, +1 Edema (In the lower extremities bilaterally) - Neurological Neurological Exam: Alert, Oriented x 3, No Facial Droop, Speech Intact / Clear, Moves All Extremities Equally - Psychiatric Psychiatric Exam: Normal Affect, Normal Mood Assessment and Plan - Patient Problems (1) COPD exacerbation Current Visit: Yes Status: Acute Code(s): J44.1 - Chronic obstructive pulmonary disease with (acute) exacerbation (2) Acute cor pulmonale Current Visit: Yes Status: Acute Code(s): I26.09 - Other pulmonary embolism with acute cor pulmonale (3) GERD (gastroesophageal reflux disease) Current Visit: Yes Status: Acute Code(s): K21.9 - Gastro-esophageal reflux disease without esophagitis Qualifiers: Esophagitis presence: esophagitis presence not specified Qualified Code(s): K21.9 - Gastro-esophageal reflux disease without esophagitis (4) Anticardiolipin antibody positive Current Visit: Yes Status: Acute Code(s): R76.8 - Other specified abnormal immunological findings in serum (5) Generalized weakness Current Visit: Yes Status: Acute Code(s): R53.1 - Weakness (6) Status post total shoulder replacement Current Visit: Yes Status: Resolved Onset Date: ~05/2014 Qualifiers: Laterality: left Qualified Code(s): Z96.612 - Presence of left artificial shoulder joint (7) Hyperlipidemia Current Visit: Yes Status: Chronic Qualifiers: Hyperlipidemia type: pure hypercholesterolemia Qualified Code(s): E78.00 - Pure hypercholesterolemia, unspecified; E78.0 - Pure hypercholesterolemia (8) Benign hypertension Current Visit: Yes Status: Chronic (9) Obstructive sleep apnea syndrome Current Visit: Yes Status: Chronic Onset Date: 09/09/13 (10) History of pulmonary embolism Current Visit: Yes Status: Chronic Code(s): Z86.711 - Personal history of pulmonary embolism - Assessment / Plan Additional Assessment/Plan Details: For the COPD, continue Zithromax and prednisone. If further exacerbations this year, consider Zithromax daily for prevention of COPD exacerbations. I think the patient will benefit from long-term Spiriva and Brovana for LAMA- LABA therapy. 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 Repeat antibody studies for phospholipid antibody syndrome in about 12 weeks. If truly positive for phospholipid antibody syndrome in 12 weeks, the patient should visit with her head of physics. Continue PT and OT for the shoulder. Labs in a.m., expecting probably another 1-2 days before discharge.
[2018-07-06 04:13] LABS: BASOPHILS # (AUTO) 0.01 10*3/UL; BASOPHILS % (AUTO) 0.1 % (0-1); EOSINOPHILS # (AUTO) 0.04 10*3/UL; EOSINOPHILS % (AUTO) 0.3 % (0-8); Hematocrit [HCT] 43.2 % (42.0-52.0); Hemoglobin [HGB] 14.4 g/dL (14.0-18.0); LYMPHOCYTES # (AUTO) 2.52 10*3/uL; MEAN CORPUSCULAR HEMOGLOBIN 30.2 PG (27-31); MEAN CORPUSCULAR HGB CONC 33.3 g/dL (33-37); MEAN CORPUSCULAR VOLUME 90.6 FL (80-90); MEAN PLATELET VOLUME 10.5 FL (7.4-12.2); MONOCYTES # (AUTO) 1.08 10*3/UL (0.3-0.8); MONOCYTES % (AUTO) 7.3 % (5-15); NEUTROPHILS # (AUTO) 11.19 10*3/UL; NEUTROPHILS % (AUTO) 75.1 % (50-80); RED BLOOD COUNT 4.77 10^6/uL (4.70-6.10)
[2018-07-06 04:23] LABS: PLATELET MORPHOLOGY COMMENT NORMAL MORPHOLOGY (NORM); RBC MORPHOLOGY COMMENT NORMAL MORPHOLOGY (NORM); WBC MORPHOLOGY COMMENT NORMAL MORPHOLOGY (NORM)
[2018-07-06 04:27] LABS: BLOOD UREA NITROGEN 24 mg/dL (7-22)
[2018-07-06] MEDS: ARFORMOTEROL NEB SOLN 15 MCG/2 ML NEB SCH (06:42)
[2018-07-06] MEDS: TIOTROPIUM BROMIDE 18 MCG CAPSULE INH SCH (06:45)
[2018-07-06 06:50] VITALS: BP 179/92; RESP 21; TEMP 97; O2SAT 94
[2018-07-06] MEDS: PANTOPRAZOLE 40 MG TABLET PO SCH (08:12)
[2018-07-06] MEDS: GUAIFENESIN 600 MG TABLET PO SCH (08:12)
[2018-07-06] MEDS: Rivaroxaban Tab 10 MG TAB PO SCH (08:12)
[2018-07-06] MEDS: VENLAFAXINE HCL XR 150 MG CAP PO SCH (08:12)
[2018-07-06] MEDS: ASCORBIC ACID Chewable 500 MG TABLET PO SCH (08:12)
[2018-07-06] MEDS: predniSONE Tab 20 MG TAB PO SCH (08:12)
[2018-07-06] MEDS: LISINOPRIL 5 MG TABLET PO SCH (08:12)
--- NOTE | 2018-07-06 09:31 | DCSUMMARY ---
Hospitalization Summary Hospital Course: Final Discharge Diagnosis: Current Visit Problems Problem Status Onset Code COPD exacerbation Acute J44.1 Acute cor pulmonale Acute I26.09 GERD (gastroesophageal reflux disease) Acute K21.9 Anticardiolipin antibody positive Acute R76.8 History of pulmonary embolism Chronic Z86.711 Generalized weakness Acute R53.1 Status post total shoulder replacement Resolved ~05/2014 Hyperlipidemia Chronic Benign hypertension Chronic Obstructive sleep apnea syndrome Chronic 09/09/13 Diagnostic Data, Laboratory Data, and Procedures of Signifigance: Laboratory Results 07/03/18 07/06/18 07/06/18 18:15 04:15 04:15 WBC 14.88 H RBC 4.77 Hgb 14.4 Hct 43.2 MCV 90.6 H MCH 30.2 MCHC 33.3 RDW Std Deviation 46.1 RDW Coeff of Nelda 14.2 Plt Count 208 MPV 10.5 Immature Gran % (Auto) 0.3 Neut % (Auto) 75.1 Lymph % (Auto) 16.9 [place] % (Auto) 7.3 Eos % (Auto) 0.3 Baso % (Auto) 0.1 Immature Gran # (Auto) 0.04 Neut # (Auto) 11.19 Lymph # (Auto) 2.52 [place] # (Auto) 1.08 H Eos # (Auto) 0.04 Baso # (Auto) 0.01 WBC Morphology Comment Normal morphology Plt Morphology Comment Normal morphology RBC Morph Comment Normal morphology Sodium 145 Potassium 4.8 Chloride 111 Carbon Dioxide 26 Anion Gap 8 BUN 24 H Creatinine 1.2 BUN/Creatinine Ratio 20.00 Glucose 101 Calculated Osmolality 303.0 H Calcium 9.0 NT-Pro-B Natriuret Pep 339 H Anti-Nuclear Antibody >12.0 H History and Physical pertinent to Admission: Course of Hospitalization: This very nice 73-year-old gentleman who was admitted for COPD exacerbation was treated with the steroids antibiotics and inhalers patient improved throughout his hospital stay today his lungs appear clear and back to his normal self. 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 Mcmahan For the COPD, continue prednisone. 40 mg for 5 more days will probably need a follow-up with pulmonary If further exacerbations this year, consider Zithromax daily for prevention of COPD exacerbations. I think the patient will benefit from long-term Spiriva and Advair for LAMA-LABA therapy. 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 Prescribed Repeat antibody studies for phospholipid antibody syndrome in about 12 weeks. If truly positive for phospholipid antibody syndrome in 12 weeks, the patient should visit with her spider assembler. On the date of discharge, the patient was examined: Gen.: No acute distress, alert, nontoxic Heart: Regular rate and rhythm, no murmurs, clicks, gallops, or rubs Lungs: Clear to auscultation bilaterally, breathing is nonlabored Abdomen/GI: Normal tones on auscultation, soft, nontender, nondistended Musculoskeletal/extremities: No clubbing, cyanosis, or edema Vitals reviewed and are listed below Assessment and Plan: 1. As per discharge assessments above 2. Disposition: Home 3. Condition on discharge, stable and improved. 4. Diet: regular diet 5. Activities: resume normal activities 6. Follow-Up: 1. PCP Dr. Marino 2. 7. Medications at the Time of Discharge: Home Medications Medication Instructions Recorded Confirmed Type ascorbic acid (vitamin C) 500 mg 1,000 mg PO QDAY tab 08/12/17 07/03/18 History tablet Metoprolol Tartrate 25 mg PO BID 09/22/17 07/03/18 History lisinopril 5 mg tablet 5 mg PO QDAY 12/04/17 07/03/18 History venlafaxine ER 150 mg 150 mg PO QDAY 07/03/18 07/03/18 History capsule,extended release 24 hr Flutica/Salmet 250/50 Inhaler 14 puff INHALATION BID #2 inhaler 07/06/18 Rx [Advair Diskus 250/50 Inhaler] Rivaroxaban [Xarelto] 10 mg PO DAILY #30 tab 07/06/18 Rx Tiotropium Inhalation Cap 18 mcg INHALATION RTDAILY #30 07/06/18 Rx [Spiriva Inhalation Cap] inhaler predniSONE Tab [Deltasone Tab] 40 mg PO DAILY #14 tab 07/06/18 Rx 8. Time, care, counseling and coordination of care for this discharge is greater than 30 minutes. Exam - Vitals Vital Signs: Vital Signs Temperature 97 F Temperature Source Temporal Artery Scan Pulse Rate [Pulse Oximeter] 79 Pulse Rate 75 Respiratory Rate 21 Blood Pressure [Right Arm] 179/92 Blood Pressure [Left Arm] 164/84 Pulse Ox 94 Oxygen Flow Rate 4.5 Oxygen Delivery Method Nasal Cannula Height 6 ft 2 in Weight 287 lb
--- NOTE | 2018-07-07 10:12 | OTI REPORT ---
Thank you for the referral of Blayne Salgado. He was seen on 07/04/18 for an occupational therapy inpatient evaluation secondary to weakness. SUBJECTIVE: The patient is a 73-year-old male. The patient reports that he lives at home in [place] by himself. He does receive some assistance from a person who live outside the home and she provides assistance for cooking and cleaning tasks. The patient reports at prior level of function he completed all of his own laundry tasks and was able to dress independently. The patient does wear oxygen at home; he is on three liters and he is currently on three liters of oxygen. The patient was admitted to the hospital secondary to weakness and left shoulder pain. He does report that he has had three failed rotator cuff repair on the left side and he was told that he might possibly need an additional total joint surgery on that left shoulder. The patient is experiencing quite a bit of pain in that shoulder this afternoon. The patient is currently retired. PAST MEDICAL HISTORY: Past medical history can be found in the patient's medical record. OBJECTIVE FINDINGS: Range of motion/Strength: Upper extremity range of motion and strength were not assessed secondary to bilateral shoulder pain at this time. Transfers: The patient demonstrated the ability to complete a sit to stand transfer with contact guard and min assist. Ambulation: The patient ambulated with physical therapy this afternoon. ASSESSMENT: Problem List: Left shoulder pain Weakness Short-Term Goals: To be met by discharge from inpatient: Patient will demonstrate the ability to complete lower extremity and upper extremity dressing tasks independently. Patient will demonstrate the ability to stand at the sink x15 minutes to complete standing grooming tasks with no losses of balance or weakness. Patient will report reduced left shoulder pain at 2/10 only. Patient will participate in therapeutic activities and possibly therapeutic exercise for left shoulder strengthening. Patient will demonstrate the ability to complete all functional transfers with contact guard assist only for safety. Long-Term Goals: To be met following discharge from inpatient: Patient will return home to prior level of function. TREATMENT PLAN: Patient will be seen B.I.D during the week and one time per day over the weekend as an inpatient to address the above goals and objectives. INITIAL TREATMENT: Treatment today consisted of the initial evaluation only. KIKE
[2018-07-08 06:49] LABS: Anti Beta 2 Glycoprotein <9.4 U/mL
[2018-07-08 09:03] LABS: INTERPRETATION SEE COMMENTS; PROTHROMBIN TIME (PT) 11.1 sec
[2018-07-08 14:03] LABS: Cardiolipin Ab IgG <9.4 GPL; Cardiolipin Ab IgM <9.4 MPL
== END 2018-07-06 10:10 | disposition home or self-care (01) | DRG 190 ==
LOC: MED/SURG 16:16
PROVIDERS: ADMIT Family Medicine; ATTEND Family Medicine

== ENCOUNTER 2018-08-04 14:08 | Inpatient (IN) ==
[2018-08-04] MEDS ORDERED: Sodium Chloride 0.9% 1,000 ML PRIMARY IV ONE (14:14)
[2018-08-04] MEDS ORDERED: ONDANSETRON 4 MG/2 ML VIAL IVP ONE (14:14)
[2018-08-04] MEDS ORDERED: ASPIRIN 81 MG (BABY) CHEWABLE TABLET PO ONE (14:14)
[2018-08-04] MEDS ORDERED: IPRATROPIUM/ALBUTEROL SULFATE 3 ML NEB NEB ONE (14:17)
--- NOTE | 2018-08-04 14:19 | EKG ---
[address] [address] Measurements Intervals Miranda Rate: 53 P: 69 OR: 181 QRS: 54 QRSD: 87 T: 82 QT: 415 QTc: 399 Interpretive Statements SINUS BRADYCARDIA Compared to ECG 07/03/2018 18:35:36 Sinus rhythm no longer present Electronically Signed On 08-04-18 15:11:27 MST by Donell Cardenas [email or web address]
[2018-08-04 14:31] LABS: BASOPHILS # (AUTO) 0.01 10*3/UL; BASOPHILS % (AUTO) 0.1 % (0-1); EOSINOPHILS # (AUTO) 0.24 10*3/UL; Hematocrit [HCT] 44.7 % (42.0-52.0); Hemoglobin [HGB] 14.9 g/dL (14.0-18.0); LYMPHOCYTES # (AUTO) 2.11 10*3/uL; MEAN CORPUSCULAR HEMOGLOBIN 30.2 PG (27-31); MEAN CORPUSCULAR HGB CONC 33.3 g/dL (33-37); MEAN CORPUSCULAR VOLUME 90.7 FL (80-90); MEAN PLATELET VOLUME 11.2 FL (7.4-12.2); MONOCYTES # (AUTO) 0.98 10*3/UL (0.3-0.8); NEUTROPHILS # (AUTO) 8.86 10*3/UL; NEUTROPHILS % (AUTO) 72.4 % (50-80); RED BLOOD COUNT 4.93 10^6/uL (4.70-6.10)
[2018-08-04 14:32] LABS: PLATELET MORPHOLOGY COMMENT NORMAL MORPHOLOGY (NORM); RBC MORPHOLOGY COMMENT NORMAL MORPHOLOGY (NORM); WBC MORPHOLOGY COMMENT NORMAL MORPHOLOGY (NORM)
[2018-08-04 14:38] LABS: VENOUS PH 7.38 (7.32-7.42)
[2018-08-04 14:50] LABS: BLOOD UREA NITROGEN 24 mg/dL (7-22); LIPASE 147 IU/L (23-300)
--- NOTE | 2018-08-04 15:22 | DI ---
XR CXR 1VW 08/04/2018 2:14 PM HISTORY: [facility] [place] [facility] [place]Chest Pain Comparison: 05/24/2018. Findings: A single portable frontal view of the chest is submitted. Images demonstrate patchy left lung base opacity. There is no large pneumothorax or pleural effusion. The cardiomediastinal silhouette is enlarged with mildly increased vasculature. Atheromatous calcifi cations are present in the arch of the tortuous thoracic aorta. The osseous structures are not signif icantly changed. Impression: 1. Patchy left lung base opacity could represent atelectasis versus early airspace disease in the cor rect clinical setting. Repeat imaging 6 weeks following completion of therapy is recommended in order to ensure resolution. 2. Cardiomegaly with mildly increased vasculature could represent technique versus early pulmonary ed jose in the setting of heart failure.
[2018-08-04] MEDS ORDERED: cefTRIAXone Inj 2 GM in Sodium Chloride 0.9% 100 ML IV ONE (15:29)
[2018-08-04] MEDS ORDERED: methylPREDNISolone 125 MG/2 ML VIAL IVP ONE (15:41)
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
[2018-08-04] MEDS ORDERED: ONDANSETRON 4 MG/2 ML VIAL IVP PRN (16:48)
[2018-08-04] MEDS ORDERED: LIDOCAINE W/ SODIUM BICARB 0.5 ML SYR SUBD PRN (16:48)
[2018-08-04] MEDS ORDERED: ALBUTEROL SULFATE 2.5 MG/3 ML NEB PRN (16:48)
--- NOTE | 2018-08-04 19:13 | DI ---
CT CTA Chest Non-Coronary WWO 08/04/2018 5:10 PM History: [facility] [place] ^hypoxia, question PE Comparison: Chest x-ray from earlier the same day. CTA chest 07/03/2018, 05/24/2018, 05/04/2018, 01/09, 09/22/2017, 01/10/2017, 11/08/2016, 08/15/2016, 02/20/2016, 07/01/2015, 06/14/2015, 07/27/2014. Procedure: CT angiography of the pulmonary arteries was performed after the administration of 85 mL o f Isovue intravenous contrast. Findings: There is normal opacification of the pulmonary arteries with no evidence of filling defect. There is no consolidation, pneumothorax, or pleural effusion. Emphysematous changes are most conspic uous in the upper lobes. There is predominantly lower lobe peripheral subpleural interlobular and int ralobular septal thickening with patchy groundglass attenuation and prominent vasculature. No new pul monary nodules are noted. There are shotty mediastinal and hilar lymph nodes, not pathologically enlarged by CT size criteria. The aorta and branch vessels demonstrate normal course and caliber. 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 Heart size is within normal limits with no pericardial effusion. The thyroid exhibits normal CT morphology. The visualized upper abdominal structures are notable for multiple bilateral hypoattenuating renal le sions that are incompletely characterized on this exam. The osseous structures are not significantly changed. There is no evidence of acute or healing rib fr actures. There is mild bilateral gynecomastia. Impression: 1. No main or segmental pulmonary embolism. 2. Centrilobular emphysema, most conspicuous in the upper lobes. 2. Constellation of findings with a broad differential that includes cardiogenic pulmonary edema, acu te on chronic hypersensitivity pneumonitis, chronic pulmonary emboli, and pulmonary fibrosis.
[2018-08-04] MEDS: IPRATROPIUM/ALBUTEROL SULFATE 3 ML NEB NEB SCH (19:23)
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
[2018-08-04] MEDS: Metoprolol TARTRATE Tab 25 MG TAB PO SCH (20:34)
[2018-08-04] MEDS: Apixaban Tab 2.5 MG TABLET PO SCH (20:34)
[2018-08-04] MEDS ORDERED: PANTOPRAZOLE IV 40 MG VIAL IVP ONE (20:43)
[2018-08-05 05:59] LABS: Hematocrit [HCT] 45.1 % (42.0-52.0); MEAN CORPUSCULAR HEMOGLOBIN 29.6 PG (27-31); MEAN CORPUSCULAR HGB CONC 33.3 g/dL (33-37); MEAN CORPUSCULAR VOLUME 89.1 FL (80-90); MEAN PLATELET VOLUME 11.2 FL (7.4-12.2); RED BLOOD COUNT 5.06 10^6/uL (4.70-6.10)
[2018-08-05 06:24] LABS: BAND NEUTROPHILS % 0 % (0-10); BASOPHILS % (MANUAL) 0 % (0-1); EOSINOPHILS % (MANUAL) 0 % (0-8); MONOCYTES % (MANUAL) 0 % (0-12); NEUTROPHILS % (MANUAL) 92 % (50-80); PLATELET MORPHOLOGY COMMENT NORMAL MORPHOLOGY (NORM); RBC MORPHOLOGY COMMENT NORMAL MORPHOLOGY (NORM); WBC MORPHOLOGY COMMENT NORMAL MORPHOLOGY (NORM)
[2018-08-05 06:30] LABS: BLOOD UREA NITROGEN 22 mg/dL (7-22); HEMOGLOBIN A1C 5.91 % (4.2-6.0)
[2018-08-05 06:55] LABS: Erythrocyte Sediment Rate 18 MM/HR (0-15)
[2018-08-05] MEDS: IPRATROPIUM/ALBUTEROL SULFATE 3 ML NEB NEB SCH ×4 (07:45→18:37)
[2018-08-05] MEDS ORDERED: ASCORBIC ACID Chewable 500 MG TABLET PO SCH (09:00)
[2018-08-05] MEDS: Apixaban Tab 2.5 MG TABLET PO SCH ×2 (09:24→21:39)
[2018-08-05] MEDS: VENLAFAXINE HCL XR 150 MG CAP PO SCH (09:24)
[2018-08-05] MEDS: Metoprolol TARTRATE Tab 25 MG TAB PO SCH ×2 (09:24→21:39)
[2018-08-05] MEDS: LISINOPRIL 5 MG TABLET PO SCH (09:24)
[2018-08-05] MEDS: predniSONE Tab 20 MG TAB PO SCH (09:24)
[2018-08-05] MEDS: ASCORBIC ACID Chewable 500 MG TABLET PO SCH (09:25)
[2018-08-05] MEDS: PANTOPRAZOLE IV 40 MG VIAL IVP SCH (09:25)
--- NOTE | 2018-08-05 12:42 | PDOC(PROG) ---
Date of Service: 08/05/18 Time of Service: 12:36 Interval History: Patient seen and evaluated earlier today. No chest pain. States that his cough seems significantly worse. He states that it's much worse and he was at home. Overall, he feels better than he did on admission yesterday. No nausea or vomiting. He does complain that his reflux seems to be worse overall. The patient notes to me that he has not been on Xarelto or Eliquis because this has been cost prohibitive. He has not been on any DVT/PE prophylaxis over the last couple of months. I did review antibodies. His antiphospholipid antibodies were negative in June 2018. Although his prior workup was suggestive of antiphospholipid antibody syndrome, I suspect that is not the case. That said, this was an unprovoked blood clot in a patient at 9 years of age with emphysema in September 2017 and he would likely benefit from lifetime prevention. I think it may be worth checking antibodies again in 2 months. If they are negative then we can later rest the diagnostic workup of antiphospholipid antibody syndrome. He does have features consistent with this as I'm doing a blood workup to see if he has any serum evidence of this. Objective : Data - Labs CBC and BMP: 08/05/18 05:43 08/05/18 05:43 Additional Lab Results: 08/04/18 08/05/18 08/05/18 17:47 05:43 05:43 C-Reactive Protein 2.2 H Vitamin D 25-Hydroxy 21.5 L Ur Strep pneumoniae Ag Negative - Imaging CT Scan Status: Image Reviewed by Me (I reviewed the CT scan. I do not think there is a pneumonia. Extensive emphysema. Is very difficult to tell if there is any true cardiac overload. I suspect that he has chronic pulmonary fibrosis in the bases of the lung as well.) Objective : Exam - General General Appearance: No Acute Distress, Cooperative Additional General Exam Details: Vital Signs - Last Taken Temperature 97.7 F 08/05/18 09:52 Pulse Rate 69 08/05/18 11:39 Respiratory Rate 18 08/05/18 11:39 Blood Pressure 145/71 08/05/18 09:52 Pulse Ox 100 08/05/18 11:39 - Eye Eye Exam: No Scleral Icterus - ENT ENT Exam: Mucous Membranes Moist - Neck Neck Exam: JVP is not Raised - Respiratory Respiratory Exam: Breathing Non Labored, Wheezes, Coarse Breath Sounds - Cardiovascular Cardiovascular Exam: RRR, No Murmur, No Clicks, No Gallops, No Rubs, No JVD - GI/Abdominal GI/Abdominal Exam: Normal Bowel Sounds, Non Tender, Non Distended, Soft - Extremities Extremities Exam: No Edema Present, No Cyanosis Present, Clubbing Present - Neurological Neurological Exam: Alert, Oriented x 3, No Facial Droop, Speech Intact / Clear, Moves All Extremities Equally Assessment and Plan - Patient Problems (1) COPD exacerbation Current Visit: Yes Status: Acute Code(s): J44.1 - Chronic obstructive pulmonary disease with (acute) exacerbation (2) Cor pulmonale (chronic) Current Visit: No Status: Acute Code(s): I27.81 - Cor pulmonale (chronic) (3) GERD (gastroesophageal reflux disease) Current Visit: Yes Status: Acute Code(s): K21.9 - Gastro-esophageal reflux disease without esophagitis Qualifiers: Esophagitis presence: esophagitis presence not specified Qualified Code(s): K21.9 - Gastro-esophageal reflux disease without esophagitis (4) Obesity Current Visit: Yes Status: Chronic Code(s): E66.9 - Obesity, unspecified Qualifiers: Obesity type: unspecified obesity type Obesity classification: adult class 2 (BMI 35 ? 39.9) Serious obesity comorbidity presence: unspecified whether serious comorbidity present Body mass index: BMI 38.0-38.9 Qualified Code(s): E66.9 - Obesity, unspecified; Z68.38 - Body mass index (BMI) 38.0-38.9, adult (5) Obstructive sleep apnea Current Visit: Yes Status: Acute Code(s): G47.33 - Obstructive sleep apnea (adult) (pediatric) (6) History of pulmonary embolism Current Visit: Yes Status: Chronic Code(s): Z86.711 - Personal history of pulmonary embolism (7) Hyperlipidemia Current Visit: Yes Status: Chronic Qualifiers: Hyperlipidemia type: pure hypercholesterolemia Qualified Code(s): E78.00 - Pure hypercholesterolemia, unspecified; E78.0 - Pure hypercholesterolemia (8) Hypertension Current Visit: Yes Status: Chronic Code(s): I10 - Essential (primary) hypertension Qualifiers: Hypertension type: essential hypertension Qualified Code(s): I10 - Essential (primary) hypertension (9) Anticardiolipin antibody positive Current Visit: Yes Status: Suspected Code(s): R76.8 - Other specified ab normal immunological findings in serum (10) Pulmonary fibrosis Current Visit: Yes Status: Acute Code(s): J84.10 - Pulmonary fibrosis, unspecified - Assessment / Plan Additional Assessment/Plan Details: I think the patient may benefit from some gentle diuresis as I do suspect he has underlying right-sided congestive heart failure and cor pulmonale. He is on a low-dose DARLINE inhibitor which seems to be helping with some afterload reduction. Continue oxygen to maintain saturations. Breathing therapies. Antibiotics and steroids. I think he needs long-term daily Zithromax to try and prevent further exacerbations. We'll place him on some guaifenesin to try and thin his cough. 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 That appointment is been moved to 09/11/2018 at 9:15 AM. I'm not sure if the patient would benefit from a bronchoscopy for diagnosis of her staging of this pulmonary fibrosis or not, but I think a pulmonology evaluation is certainly warranted. I will try to get the CT scan from this hospital stay pushed up to [place]. Will check on prices for the patient for Xarelto and see if we can switch him over to that as Eliquis is cost prohibitive. There is still no evidence that he truly has an antiphospholipid antibody syndrome. No history of arterial blood clots, one isolated event, and so I think it is not advisable at this point to switch over to Coumadin due to the many complications of this medication unless he truly does have antiphospholipid antibody syndrome. I did review the literature in regard to this, and it is not definitive, but studies were of poor quality, and certainly if he can get away with something that we do not have to worry about as much on the arterial side of things I think that would be best for the patient.
[2018-08-05] MEDS: FUROSEMIDE 20 MG TABLET PO SCH (14:58)
[2018-08-05] MEDS: cefTRIAXone Inj 2 GM in Sodium Chloride 0.9% 100 ML IV SCH (17:28)
[2018-08-05] MEDS: GUAIFENESIN 600 MG TABLET PO SCH (21:39)
[2018-08-06 05:37] LABS: BLOOD UREA NITROGEN 28 mg/dL (7-22); BUN/CREATININE RATIO 25.45 (6-20)
[2018-08-06] MEDS: FUROSEMIDE 20 MG TABLET PO SCH ×2 (07:36→13:01)
[2018-08-06] MEDS: IPRATROPIUM/ALBUTEROL SULFATE 3 ML NEB NEB SCH ×4 (07:56→18:54)
[2018-08-06] MEDS: PANTOPRAZOLE IV 40 MG VIAL IVP SCH (09:00)
[2018-08-06] MEDS: LISINOPRIL 5 MG TABLET PO SCH (09:01)
[2018-08-06] MEDS: ASCORBIC ACID Chewable 500 MG TABLET PO SCH (09:01)
[2018-08-06] MEDS: Potassium Chloride Tab 10 MEQ TAB PO SCH (09:01)
[2018-08-06] MEDS: Apixaban Tab 2.5 MG TABLET PO SCH ×2 (09:01→20:22)
[2018-08-06] MEDS: Metoprolol TARTRATE Tab 25 MG TAB PO SCH ×2 (09:01→20:22)
[2018-08-06] MEDS: VENLAFAXINE HCL XR 150 MG CAP PO SCH (09:01)
[2018-08-06] MEDS: predniSONE Tab 20 MG TAB PO SCH (09:01)
[2018-08-06] MEDS: CHOLECALCIFEROL 1000 IU TABLET PO SCH (09:01)
[2018-08-06] MEDS: GUAIFENESIN 600 MG TABLET PO SCH ×2 (09:02→20:22)
[2018-08-06] MEDS: ACETAMINOPHEN 325 MG TABLET PO PRN (14:25)
[2018-08-06] MEDS: cefTRIAXone Inj 2 GM in Sodium Chloride 0.9% 100 ML IV SCH (16:35)
[2018-08-06] MEDS ORDERED: CYANOCOBALAMIN 1000 MCG/1 ML VIAL IM ONE (19:34)
--- NOTE | 2018-08-06 19:43 | PDOC(PROG) ---
Date of Service: 08/06/18 Time of Service: 11:00 Interval History: no chest pain shortness of breath about the same cough minimally better not sure if he can afford xarelto having more pain in joints. Objective : Data - Labs CBC and BMP: 08/05/18 05:43 08/06/18 04:52 Objective : Exam - General General Appearance: No Acute Distress, Cooperative Additional General Exam Details: Vital Signs - Last Taken Temperature 97.5 F 08/06/18 16:39 Pulse Rate 80 08/06/18 18:55 Respiratory Rate 20 08/06/18 18:55 Blood Pressure 169/68 08/06/18 16:39 Pulse Ox 96 08/06/18 18:54 - Head Head Exam: Normal Inspection, Normocephalic, Atraumatic - Eye Eye Exam: No Scleral Icterus - ENT ENT Exam: Mucous Membranes Moist - Neck Neck Exam: JVP is not Raised - Respiratory Respiratory Exam: Breathing Non Labored, Coarse Breath Sounds - Cardiovascular Cardiovascular Exam: RRR, No Murmur, No Clicks, No Gallops, No Rubs, No JVD - GI/Abdominal GI/Abdominal Exam: Normal Bowel Sounds, Non Tender, Non Distended, Soft - Extremities Extremities Exam: No Edema Present, No Cyanosis Present, Clubbing Present - Neurological Neurological Exam: Alert, Oriented x 3, No Facial Droop, Speech Intact / Clear, Moves All Extremities Equally Assessment and Plan - Patient Problems (1) COPD exacerbation Current Visit: Yes Status: Acute Code(s): J44.1 - Chronic obstructive pulmonary disease with (acute) exacerbation (2) Cor pulmonale (chronic) Current Visit: No Status: Acute Code(s): I27.81 - Cor pulmonale (chronic) (3) GERD (gastroesophageal reflux disease) Current Visit: Yes Status: Acute Code(s): K21.9 - Gastro-esophageal reflux disease without esophagitis Qualifiers: Esophagitis presence: esophagitis presence not specified Qualified Code(s): K21.9 - Gastro-esophageal reflux disease without esophagitis (4) Obesity Current Visit: Yes Status: Chronic Code(s): E66.9 - Obesity, unspecified Qualifiers: Obesity type: unspecified obesity type Obesity classification: adult class 2 (BMI 35 ? 39.9) Serious obesity comorbidity presence: unspecified whether serious comorbidity present Body mass index: BMI 38.0-38.9 Qualified Code(s): E66.9 - Obesity, unspecified; Z68.38 - Body mass index (BMI) 38.0-38.9, adult (5) Obstructive sleep apnea Current Visit: Yes Status: Acute Code(s): G47.33 - Obstructive sleep apnea (adult) (pediatric) (6) History of pulmonary embolism Current Visit: Yes Status: Chronic Code(s): Z86.711 - Personal history of pulmonary embolism (7) Hyperlipidemia Current Visit: Yes Status: Chronic Qualifiers: Hyperlipidemia type: pure hypercholesterolemia Qualified Code(s): E78.00 - Pure hypercholesterolemia, unspecified; E78.0 - Pure hypercholesterolemia (8) Hypertension Current Visit: Yes Status: Chronic Code(s): I10 - Essential (primary) hypertension Qualifiers: Hypertension type: essential hypertension Qualified Code(s): I10 - Essential (primary) hypertension (9) Anticardiolipin antibody positive Current Visit: Yes Status: Suspected Code(s): R76.8 - Other specified abnormal immunological findings in serum (10) Pulmonary fibrosis Current Visit: Yes Status: Acute Code(s): J84.10 - Pulmonary fibrosis, unspecified - Assessment / Plan Additional Assessment/Plan Details: will work with case management to find out potential [facility] resources for meds continue antibiotics, steroids, breathing therapies DVT/PE prophylaxis pulm outpatient follow up in September--question if any further workup needs to be done for fibrosis and other issues maybe 1-2 more days, then home? daily zithromax vs dulera, I think antibiotic may be best d/w patient and caregiver.
[2018-08-06] MEDS ORDERED: CALCIUM CARBONATE 500 MG (TUMS) CHEWABLE TABLET PO PRN (21:16)
[2018-08-07] MEDS: IPRATROPIUM/ALBUTEROL SULFATE 3 ML NEB NEB SCH ×4 (06:10→18:50)
[2018-08-07 06:58] LABS: Complement C3 163 mg/dL (75 - 175); RNP Antibody <0.2 U
[2018-08-07] MEDS: FUROSEMIDE 20 MG TABLET PO SCH ×2 (07:20→13:53)
[2018-08-07] MEDS ORDERED: CYANOCOBALAMIN 1000 MCG/1 ML VIAL IM ONE (09:00)
[2018-08-07] MEDS: VENLAFAXINE HCL XR 150 MG CAP PO SCH (09:11)
[2018-08-07] MEDS: PANTOPRAZOLE IV 40 MG VIAL IVP SCH (09:12)
[2018-08-07] MEDS: Potassium Chloride Tab 10 MEQ TAB PO SCH (09:12)
[2018-08-07] MEDS: Apixaban Tab 2.5 MG TABLET PO SCH (09:12)
[2018-08-07] MEDS: LISINOPRIL 5 MG TABLET PO SCH (09:12)
[2018-08-07] MEDS: ASCORBIC ACID Chewable 500 MG TABLET PO SCH (09:13)
[2018-08-07] MEDS: Metoprolol TARTRATE Tab 25 MG TAB PO SCH (09:13)
[2018-08-07] MEDS: CHOLECALCIFEROL 1000 IU TABLET PO SCH (09:13)
[2018-08-07] MEDS: predniSONE Tab 20 MG TAB PO SCH (09:13)
[2018-08-07] MEDS: GUAIFENESIN 600 MG TABLET PO SCH (09:14)
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
[2018-08-07] MEDS: cefTRIAXone Inj 2 GM in Sodium Chloride 0.9% 100 ML IV SCH (18:15)
--- NOTE | 2018-08-07 22:17 | PDOC(PROG) ---
Date of Service: 08/07/18 Time of Service: 10:30 Interval History: States his cough is somewhat better. Still very nervous about going home to early. No chest pain. No nausea or vomiting. Still having reflux and complains of memory issues. Objective : Data - Labs CBC and BMP: 08/05/18 05:43 08/06/18 04:52 Objective : Exam - General General Appearance: No Acute Distress, Cooperative Additional General Exam Details: Vital Signs - Last Taken Temperature 97.8 F 08/07/18 20:12 Pulse Rate 98 08/07/18 20:12 Respiratory Rate 20 08/07/18 20:12 Blood Pressure 150/69 08/07/18 20:12 Pulse Ox 91 08/07/18 20:12 - Eye Eye Exam: No Scleral Icterus - ENT ENT Exam: Mucous Membranes Moist - Neck Neck Exam: JVP is not Raised - Respiratory Respiratory Exam: Breathing Non Labored, Coarse Breath Sounds - Cardiovascular Cardiovascular Exam: RRR, No Murmur, No Clicks, No Gallops, No Rubs, No JVD - GI/Abdominal GI/Abdominal Exam: Normal Bowel Sounds, Non Tender, Non Distended, Soft - Extremities Extremities Exam: No Edema Present, No Cyanosis Present, Clubbing Present - Neurological Neurological Exam: Alert, Oriented x 3, No Facial Droop, Speech Intact / Clear, Moves All Extremities Equally Assessment and Plan - Patient Problems (1) COPD exacerbation Current Visit: Yes Status: Acute Code(s): J44.1 - Chronic obstructive pulmonary disease with (acute) exacerbation (2) Cor pulmonale (chronic) Current Visit: No Status: Acute Code(s): I27.81 - Cor pulmonale (chronic) (3) GERD (gastroesophageal reflux disease) Current Visit: Yes Status: Acute Code(s): K21.9 - Gastro-esophageal reflux disease without esophagitis Qualifiers: Esophagitis presence: esophagitis presence not specified Qualified Code(s): K21.9 - Gastro-esophageal reflux disease without esophagitis (4) Obesity Current Visit: Yes Status: Chronic Code(s): E66.9 - Obesity, unspecified Qualifiers: Obesity type: unspecified obesity type Obesity classification: adult class 2 (BMI 35 ? 39.9) Serious obesity comorbidity presence: unspecified whether serious comorbidity present Body mass index: BMI 38.0-38.9 Qualified Code(s): E66.9 - Obesity, unspecified; Z68.38 - Body mass index (BMI) 38.0-38.9, adult (5) Obstructive sleep apnea Current Visit: Yes Status: Acute Code(s): G47.33 - Obstructive sleep apnea (adult) (pediatric) (6) History of pulmonary embolism Current Visit: Yes Status: Chronic Code(s): Z86.711 - Personal history of pulmonary embolism (7) Hyperlipidemia Current Visit: Yes Status: Chronic Qualifiers: Hyperlipidemia type: pure hypercholesterolemia Qualified Code(s): E78.00 - Pure hypercholesterolemia, unspecified; E78.0 - Pure hypercholesterolemia (8) Hypertension Current Visit: Yes Status: Chronic Code(s): I10 - Essential (primary) hypertension Qualifiers: Hypertension type: essential hypertension Qualified Code(s): I10 - Essential (primary) hypertension (9) Anticardiolipin antibody positive Current Visit: Yes Status: Suspected Code(s): R76.8 - Other specified abnormal immunological findings in serum (10) Pulmonary fibrosis Current Visit: Yes Status: Acute Code(s): J84.10 - Pulmonary fibrosis, unspecified - Assessment / Plan Additional Assessment/Plan Details: With his many admissions, outpatient exacerbations as the patient does have, I think it's reasonable to watch another day and would feel a little better about that from the standpoint of the patient's overall improvement, continue antibiotics and continue steroids. His B12 is low normal but not technically a deficiency. That being said, with memory issues and a low normal B12 think is very reasonable to do replacement. We gave an IM shot of B12 today. The patient should remain on a proton pump inhibitor. Albeit reportedly proton pump inhibitors have an increased risk of pneumonia, I think the data in COPD guidelines is more convincing that proton pump inhibitors may help reduce exa cerbations by reducing reflux and microaspiration events. As patient will be on proton pump inhibitor from here on out, I think that he would benefit from continued B12 replacement. I will get a head CT scan. A detailed history of subarachnoid hemorrhage of some type that I don't have records on to confirm any further, but when head CT scan was done and it was negative on my view and there was microvascular disease changes on the radiology interpretation. Continue aspirin. Continue DVT/PE prophylaxis and consider repeating antiphospholipid antibodies in 2 months. Lupus workup thankfully was negative although C3 complement was minimally elevated at 58. Continue oxygen therapy and breathing therapies as necessary. Although I tried to convince the patient that he should consider VA benefits, particular for his medication management due to cost, he informed case management that he was not interested in that.
[2018-08-08] MEDS: Apixaban Tab 2.5 MG TABLET PO SCH ×2 (00:24→08:54)
[2018-08-08] MEDS: GUAIFENESIN 600 MG TABLET PO SCH ×2 (00:24→09:08)
[2018-08-08] MEDS: Metoprolol TARTRATE Tab 25 MG TAB PO SCH ×2 (00:24→08:54)
[2018-08-08 05:51] LABS: BASOPHILS # (AUTO) 0.01 10*3/UL; BASOPHILS % (AUTO) 0.1 % (0-1); EOSINOPHILS # (AUTO) 0.03 10*3/UL; EOSINOPHILS % (AUTO) 0.2 % (0-8); Hemoglobin [HGB] 15.1 g/dL (14.0-18.0); LYMPHOCYTES # (AUTO) 3.11 10*3/uL; MEAN CORPUSCULAR HEMOGLOBIN 29.4 PG (27-31); MEAN CORPUSCULAR HGB CONC 32.1 g/dL (33-37); MEAN CORPUSCULAR VOLUME 91.4 FL (80-90); MEAN PLATELET VOLUME 11.6 FL (7.4-12.2); MONOCYTES # (AUTO) 1.21 10*3/UL (0.3-0.8); MONOCYTES % (AUTO) 7.7 % (5-15); NEUTROPHILS # (AUTO) 11.36 10*3/UL; NEUTROPHILS % (AUTO) 71.9 % (50-80); RED BLOOD COUNT 5.14 10^6/uL (4.70-6.10)
[2018-08-08 06:05] LABS: PLATELET MORPHOLOGY COMMENT NORMAL MORPHOLOGY (NORM); RBC MORPHOLOGY COMMENT NORMAL MORPHOLOGY (NORM); WBC MORPHOLOGY COMMENT NORMAL MORPHOLOGY (NORM)
[2018-08-08 06:11] LABS: BLOOD UREA NITROGEN 30 mg/dL (7-22)
[2018-08-08] MEDS: IPRATROPIUM/ALBUTEROL SULFATE 3 ML NEB NEB SCH ×2 (06:12→10:53)
[2018-08-08] MEDS: FUROSEMIDE 20 MG TABLET PO SCH (06:47)
[2018-08-08 07:12] VITALS: TEMP 97
[2018-08-08 07:13] VITALS: BP 189/85
[2018-08-08] MEDS: PANTOPRAZOLE IV 40 MG VIAL IVP SCH (08:54)
[2018-08-08] MEDS: LISINOPRIL 5 MG TABLET PO SCH (08:54)
[2018-08-08] MEDS: CHOLECALCIFEROL 1000 IU TABLET PO SCH (08:54)
[2018-08-08] MEDS: ACETAMINOPHEN 325 MG TABLET PO PRN (08:54)
[2018-08-08] MEDS: Potassium Chloride Tab 10 MEQ TAB PO SCH (08:54)
[2018-08-08] MEDS: predniSONE Tab 20 MG TAB PO SCH (08:54)
[2018-08-08] MEDS: VENLAFAXINE HCL XR 150 MG CAP PO SCH (08:55)
[2018-08-08] MEDS: ASCORBIC ACID Chewable 500 MG TABLET PO SCH (08:55)
[2018-08-08 10:55] VITALS: RESP 16; O2SAT 98
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
[2018-08-12 14:15] LABS: ASPERGILLUS FLAVUS ANTIBODY NEGATIVE
[2018-08-12 14:16] LABS: ASPERGILLUS NIGER ANTIBODY NEGATIVE
[2018-08-12 14:18] LABS: ASPERGILLUS FUMIGATUS ANTIBODY NEGATIVE
== END 2018-08-08 12:02 | disposition home or self-care (01) | DRG 190 ==
LOC: ER 14:08 → MED/SURG 16:35
PROVIDERS: ADMIT Family Medicine; ATTEND Family Medicine

== ENCOUNTER 2019-03-18 15:38 | Inpatient (IN) ==
[2019-03-18] MEDS ORDERED: Sodium Chloride 0.9% 1,000 ML PRIMARY IV ONE (15:46)
[2019-03-18] MEDS ORDERED: IPRATROPIUM/ALBUTEROL SULFATE 3 ML NEB NEB ONE ×2 (15:46→15:48)
[2019-03-18 15:57] LABS: VENOUS PH 7.44 (7.32-7.42)
[2019-03-18 16:14] LABS: Hematocrit [HCT] 48.8 % (42.0-52.0); Hemoglobin [HGB] 15.9 g/dL (14.0-18.0); RED BLOOD COUNT 5.42 10^6/uL (4.70-6.10)
[2019-03-18 16:15] LABS: BASOPHILS % (AUTO) 0.2 % (0-1); EOSINOPHILS % (AUTO) 4.6 % (0-8); MEAN CORPUSCULAR HGB CONC 32.6 g/dL (33-37); MEAN PLATELET VOLUME 10.8 FL (7.4-12.2); MONOCYTES % (AUTO) 7.5 % (5-15); NEUTROPHILS % (AUTO) 77.6 % (50-80)
[2019-03-18 16:16] LABS: BASOPHILS # (AUTO) 0.03 10*3/UL; EOSINOPHILS # (AUTO) 0.68 10*3/UL; LYMPHOCYTES # (AUTO) 1.31 10*3/uL; MONOCYTES # (AUTO) 1.11 10*3/UL (0.3-0.8); NEUTROPHILS # (AUTO) 11.45 10*3/UL; PLATELET MORPHOLOGY COMMENT NORMAL MORPHOLOGY (NORM); RBC MORPHOLOGY COMMENT NORMAL MORPHOLOGY (NORM); WBC MORPHOLOGY COMMENT NORMAL MORPHOLOGY (NORM)
[2019-03-18 16:20] LABS: SERUM ALBUMIN 3.9 g/dL (3.5-4.8)
[2019-03-18] MEDS ORDERED: cefTRIAXone Inj 2 GM in Sodium Chloride 0.9% 100 ML IV ONE (16:59)
[2019-03-18] MEDS ORDERED: methylPREDNISolone 125 MG/2 ML VIAL IVP ONE (17:35)
[2019-03-18] MEDS ORDERED: ACETAMINOPHEN 500 MG TABLET PO ONE (18:30)
[2019-03-18] MEDS ORDERED: cefTRIAXone Inj 2 GM in Sodium Chloride 0.9% 100 ML IV SCH (19:00)
[2019-03-18] MEDS ORDERED: LIDOCAINE W/ SODIUM BICARB 0.5 ML SYR SUBD PRN (19:03)
[2019-03-18] MEDS ORDERED: ASCORBATE CALCIUM 500 MG PO SCH (19:03)
[2019-03-18] MEDS: Sodium Chloride 0.9% 1,000 ML PRIMARY IV SCH (19:32)
[2019-03-18] MEDS: Apixaban 5 MG TABLET PO SCH (19:49)
[2019-03-18] MEDS: IPRATROPIUM/ALBUTEROL SULFATE 3 ML NEB NEB SCH (20:16)
[2019-03-18] MEDS: Metoprolol TARTRATE Tab 25 MG TAB PO SCH (20:38)
[2019-03-19] MEDS: Sodium Chloride 0.9% 1,000 ML PRIMARY IV SCH ×2 (03:38→15:26)
[2019-03-19 05:39] LABS: BASOPHILS # (AUTO) 0.03 10*3/UL; BASOPHILS % (AUTO) 0.3 % (0-1); EOSINOPHILS # (AUTO) 0.01 10*3/UL; EOSINOPHILS % (AUTO) 0.1 % (0-8); Hematocrit [HCT] 49.3 % (42.0-52.0); Hemoglobin [HGB] 15.8 g/dL (14.0-18.0); LYMPHOCYTES # (AUTO) 0.63 10*3/uL; MEAN CORPUSCULAR VOLUME 91.5 FL (80-90); MONOCYTES # (AUTO) 0.12 10*3/UL (0.3-0.8); MONOCYTES % (AUTO) 1.1 % (5-15); NEUTROPHILS # (AUTO) 10.14 10*3/UL; NEUTROPHILS % (AUTO) 92.2 % (50-80); PLATELET MORPHOLOGY COMMENT NORMAL MORPHOLOGY (NORM); RBC MORPHOLOGY COMMENT NORMAL MORPHOLOGY (NORM); RED BLOOD COUNT 5.39 10^6/uL (4.70-6.10); WBC MORPHOLOGY COMMENT NORMAL MORPHOLOGY (NORM)
[2019-03-19 05:46] LABS: BUN/CREATININE RATIO 21.53 (6-20); SERUM ALBUMIN 3.8 g/dL (3.5-4.8)
[2019-03-19] MEDS: IPRATROPIUM/ALBUTEROL SULFATE 3 ML NEB NEB SCH ×4 (06:29→18:40)
[2019-03-19] MEDS: VENLAFAXINE HCL XR 150 MG CAP PO SCH (09:20)
[2019-03-19] MEDS: Metoprolol TARTRATE Tab 25 MG TAB PO SCH ×2 (09:20→20:18)
[2019-03-19] MEDS: Apixaban 5 MG TABLET PO SCH (09:21)
[2019-03-19] MEDS: ASCORBIC ACID Chewable 500 MG TABLET PO SCH (09:23)
[2019-03-19] MEDS: methylPREDNISolone 125 MG/2 ML VIAL IVP SCH ×2 (14:05→22:24)
[2019-03-19] MEDS: LOSARTAN 25 MG TABLET PO SCH (15:11)
[2019-03-19] MEDS: cefTRIAXone Inj 2 GM in Sodium Chloride 0.9% 100 ML IV SCH (16:35)
[2019-03-19] MEDS: Apixaban Tab 2.5 MG TABLET PO SCH (20:18)
[2019-03-20] MEDS: methylPREDNISolone 125 MG/2 ML VIAL IVP SCH ×3 (03:59→20:56)
[2019-03-20 05:23] LABS: BASOPHILS # (AUTO) 0.03 10*3/UL; BASOPHILS % (AUTO) 0.1 % (0-1); EOSINOPHILS # (AUTO) 0 10*3/UL; EOSINOPHILS % (AUTO) 0 % (0-8); Hematocrit [HCT] 48.6 % (42.0-52.0); Hemoglobin [HGB] 15.6 g/dL (14.0-18.0); LYMPHOCYTES # (AUTO) 0.63 10*3/uL; MEAN CORPUSCULAR HGB CONC 32.1 g/dL (33-37); MEAN CORPUSCULAR VOLUME 90.8 FL (80-90); MEAN PLATELET VOLUME 11.3 FL (7.4-12.2); MONOCYTES % (AUTO) 1.4 % (5-15); NEUTROPHILS # (AUTO) 20.57 10*3/UL; NEUTROPHILS % (AUTO) 95.2 % (50-80); PLATELET MORPHOLOGY COMMENT NORMAL MORPHOLOGY (NORM); RBC MORPHOLOGY COMMENT NORMAL MORPHOLOGY (NORM); RED BLOOD COUNT 5.35 10^6/uL (4.70-6.10); WBC MORPHOLOGY COMMENT NORMAL MORPHOLOGY (NORM)
[2019-03-20 05:26] LABS: BUN/CREATININE RATIO 31.66 (6-20)
[2019-03-20] MEDS: IPRATROPIUM/ALBUTEROL SULFATE 3 ML NEB NEB SCH ×4 (06:30→19:51)
[2019-03-20] MEDS: VENLAFAXINE HCL XR 150 MG CAP PO SCH (08:56)
[2019-03-20] MEDS: LOSARTAN 25 MG TABLET PO SCH (08:56)
[2019-03-20] MEDS: ASCORBIC ACID Chewable 500 MG TABLET PO SCH (08:56)
[2019-03-20] MEDS: Metoprolol TARTRATE Tab 25 MG TAB PO SCH ×2 (08:56→20:56)
[2019-03-20] MEDS: Apixaban Tab 2.5 MG TABLET PO SCH ×2 (08:57→20:56)
[2019-03-20] MEDS: cefTRIAXone Inj 2 GM in Sodium Chloride 0.9% 100 ML IV SCH (17:12)
[2019-03-21] MEDS: methylPREDNISolone 125 MG/2 ML VIAL IVP SCH (03:19)
[2019-03-21] MEDS: IPRATROPIUM/ALBUTEROL SULFATE 3 ML NEB NEB SCH ×4 (06:40→19:31)
[2019-03-21] MEDS: Apixaban Tab 2.5 MG TABLET PO SCH ×2 (09:23→20:44)
[2019-03-21] MEDS: ASCORBIC ACID Chewable 500 MG TABLET PO SCH (09:23)
[2019-03-21] MEDS: VENLAFAXINE HCL XR 150 MG CAP PO SCH (09:23)
[2019-03-21] MEDS: LOSARTAN 25 MG TABLET PO SCH (09:29)
[2019-03-21] MEDS: Metoprolol TARTRATE Tab 25 MG TAB PO SCH ×2 (09:29→20:45)
[2019-03-21] MEDS: methylPREDNISolone 40 MG/1 ML VIAL IVP SCH (15:07)
[2019-03-21] MEDS: cefTRIAXone Inj 2 GM in Sodium Chloride 0.9% 100 ML IV SCH (18:01)
[2019-03-22] MEDS ORDERED: PHENOL/SODIUM PHENOLATE 177 ML SPRAY PO PRN (01:03)
[2019-03-22] MEDS: methylPREDNISolone 40 MG/1 ML VIAL IVP SCH (03:12)
[2019-03-22 04:53] LABS: BUN/CREATININE RATIO 27.69 (6-20)
[2019-03-22 05:01] LABS: BASOPHILS # (AUTO) 0.09 10*3/UL; BASOPHILS % (AUTO) 0.4 % (0-1); EOSINOPHILS # (AUTO) 0 10*3/UL; EOSINOPHILS % (AUTO) 0 % (0-8); Hematocrit [HCT] 49.4 % (42.0-52.0); Hemoglobin [HGB] 15.8 g/dL (14.0-18.0); LYMPHOCYTES # (AUTO) 0.76 10*3/uL; MEAN CORPUSCULAR VOLUME 92.5 FL (80-90); MEAN PLATELET VOLUME 11.3 FL (7.4-12.2); MONOCYTES # (AUTO) 0.95 10*3/UL (0.3-0.8); MONOCYTES % (AUTO) 4.2 % (5-15); NEUTROPHILS # (AUTO) 20.83 10*3/UL; NEUTROPHILS % (AUTO) 91.3 % (50-80); PLATELET MORPHOLOGY COMMENT NORMAL MORPHOLOGY (NORM); RBC MORPHOLOGY COMMENT NORMAL MORPHOLOGY (NORM); RED BLOOD COUNT 5.34 10^6/uL (4.70-6.10); WBC MORPHOLOGY COMMENT NORMAL MORPHOLOGY (NORM)
[2019-03-22] MEDS: IPRATROPIUM/ALBUTEROL SULFATE 3 ML NEB NEB SCH (06:31)
[2019-03-22 07:18] VITALS: BP 168/77; RESP 22; TEMP 97.1
[2019-03-22 07:21] VITALS: O2SAT 92
[2019-03-22] MEDS: ASCORBIC ACID Chewable 500 MG TABLET PO SCH (09:08)
[2019-03-22] MEDS: Metoprolol TARTRATE Tab 25 MG TAB PO SCH (09:09)
[2019-03-22] MEDS: VENLAFAXINE HCL XR 150 MG CAP PO SCH (09:09)
[2019-03-22] MEDS: LOSARTAN 25 MG TABLET PO SCH (09:09)
[2019-03-22] MEDS: Apixaban Tab 2.5 MG TABLET PO SCH (09:10)
== END 2019-03-22 10:21 | disposition home or self-care (01) | DRG 191 ==
LOC: ER 15:38 → MED/SURG 18:24
PROVIDERS: ADMIT Internal Medicine; ATTEND Internal Medicine